=== PATIENT | female | born 1995 | race Caucasian/White ===

== ENCOUNTER 2019-07-24 07:03 | Inpatient (IN) ==
[~2019-07-24 07:03] MED LIST: CITRIC ACID/SODIUM CITRATE 15 ML UDC PO SCH
[2019-07-24] MEDS: LACTATED RINGER'S 1,000 ML IV PRN ×5 (07:20→21:45)
[2019-07-24] MEDS ORDERED: OXYTOCIN 30 UNITS/500 ML BAG IV PRN ×2 (07:30→08:08)
[2019-07-24] MEDS ORDERED: ePHEDrine sulfate 50 MG/ML AMP ONE (07:31)
[2019-07-24] MEDS ORDERED: fentaNYL citrate 100 MCG/2 ML VIAL ONE (07:31)
[2019-07-24] MEDS ORDERED: fentaNYL 2MCG/ML ROPIV 1.25MG/ML 100 ML BAG EPI ONE (07:32)
[2019-07-24] MEDS ORDERED: BUPIVACAINE 0.25% 30 ML VIAL ONE ×2 (07:32→18:17)
--- NOTE | 2019-07-24 07:40 | History & Physical Report ---
Date of Service July 24, 2019 Assessment & Plan (1) Uterine contractions at greater than 20 weeks of gestation: Patient is a 23 yo at 41.2 wks with regular ctxs, desires epidural for pain VSS Afebrile No medical problems except multiple drug allergies FHR reassuring GBS negative Plan to admit, labs, IVF, epidural for pain Anticipate (2) Post-dates : History of Present Illness Chief Complaint: Contractions Primary Care Provider: Cj Alatorre Patient is a 23 yo at 41.2 wks who was originally scheduled for IOL for postdates She started to feel with ctxs yesterday afternoon, got closer and more regular after 4 am No LOF/VB +FM Her has been uncomplicated except Hiatal hernia/ GERD Multiple drug allergies GBS negative Allergies Allergy/AdvReac Type Severity Reaction Status Date / Time amoxicillin Allergy Rash Verified 07/24/19 07:36 clindamycin Allergy Rash Verified 07/24/19 07:36 sulfamethoxazole Allergy Rash Verified 07/24/19 07:36 [From Bactrim] trimethoprim [From Bactrim] Allergy Rash Verified 07/24/19 07:36 Home Medications Home Medications Medication Instructions Recorded Confirmed Type vit-iron fum-folic ac 1 tab PO DAILY 07/24/19 07/24/19 History [ Vitamin] ranitidine HCl [Zantac] 150 mg PO DAILY 07/24/19 07/24/19 History Patient History Social History Smoking Status: Never smoker Hx Alcohol Use: No 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 STD, no h/ HSV/ Chlamydia/ GC Review of Systems All systems reviewed & are unremarkable except as noted in HPI & below Physical Exam Constitutional: WD/WN, vitals as above well developed, well nourished and + acute distress (uncomfortable with ctxs) Gastrointestinal (Abdomen): Inspection/Auscultation: abdomen normal to inspection Abd: soft, NT, Gravid, ctxs q 2-3 min Estu[place] 7 lb Musculoskeletal: no cyanosis or clubbing, extremities motor strength 5/5 Results & Data Vital Signs (Past 12 Hours) Vital Signs Temp Pulse Resp BP 07/24/19 07:12 36.8 C 83 16 139/86 Monitoring External Monitor Categ I Tocodynamometer Contractions q 2-3min
[2019-07-24 07:48] LABS: Hematocrit (blood only) 40.1 % (37-47); Hemoglobin 13.9 g/dL (12.0-16.0); Mean Corpuscular Hemoglobin 31.4 pg (25-34); Mean Corpuscular Volume 90.7 fL (80-100); Mean Platelet Volume 11.4 fL (7.4-10.4); Platelet Count 252 K/uL (130-400); RDW Coefficient of Variation 12.9 % (11.5-14.5); RDW Standard Deviation 42.3 fL (36.4-46.3); Red Blood Count 4.42 M/uL (4.2-5.4); White Blood Count 18.29 K/uL (4.8-10.8)
[2019-07-24 07:51] LABS: Mean Corpuscular Hgb Conc 34.7 g/dL (32-36)
--- NOTE | 2019-07-24 07:56 | Anesthesiology Consultation ---
Date of Service July 24, 2019 Assessment & Plan (1) Encounter for pre-operative examination: Chart Review Chart Review: Patient NOT seen in Pre Admission Testing and Acceptable Risk for Labor Epidural Consults Requested none ASA ASA2 Proposed Anesthesia Anesthesia Type: Labor Epidural Risk / Benefits Reviewed With: PT / POA / Parent / Guardian, Accepts Plan and Informed Consent Obtained History Height/Weight Height: 5 ft 4 in Weight: 74.843 kg Allergies Allergy/AdvReac Type Severity Reaction Status Date / Time amoxicillin Allergy Rash Verified 07/24/19 07:36 clindamycin Allergy Rash Verified 07/24/19 07:36 sulfamethoxazole Allergy Rash Verified 07/24/19 07:36 [From Bactrim] trimethoprim [From Bactrim] Allergy Rash Verified 07/24/19 07:36 Medications Home Medications Medication Instructions Recorded Confirmed Last Taken vit-iron fum-folic ac 1 tab PO DAILY 07/24/19 07/24/19 07/23/19 19:00 [ Vitamin] ranitidine HCl [Zantac] 150 mg PO DAILY 07/24/19 07/24/19 07/23/19 19:00 Active Medications Generic Name Dose Route Start Last Admin Trade Name Freq PRN Reason Stop Dose Admin Lactated Ringer's 1,000 mls @ 150 mls/hr 07/24/19 07:30 07/24/19 08:21 Lr IV 07/26/19 07:29 125 mls/hr .[id number] PRN Administration L&D Protocol Protocol NPO Date Last Intake of Fluids: 07/24/19 Time Last Intake of Fluids: 07:59 Date Last Intake of Solids: 07/23/19 Time Last Intake of Solids: 19:00 Past Medical History Medical History Hiatal hernia Placental abnormality Accessory lobe noted on anatomy scan [place] teeth extracted Exercise / Class Metabolic Activity II 4-5 Yardwork/Stairs/Walk up hill Past Surgical History Surgical History History of shoulder surgery Left shoulder for torn ligaments Past Anesthesia History No Hx of Anesthesia Complications reports being itchy History of PONV No Hx of PONV Social History Smoking Status: Never smoker Hx Alcohol Use: No Hx Substance Use: No Review of Systems Patient denies history of abnormal bleeding or bleeding disorder. Patient denies active use of anticoagulants other than low dose aspirin. Patient denies numbness, tingling or weakness in lower extremities. Positive for nausea Physical Exam Vital Signs Last Vital Signs Temp 36.8 C 07/24/19 07:12 Pulse 83 07/24/19 07:12 Resp 18 07/24/19 07:41 BP 139/86 07/24/19 07:12 Constitutional not obese gravid ENMT Mouth: no TMJ abnormality and oral opening not small Thyromental Distance: > or= 3.5 Finger Breadths Mallampati Class: I Neck normal visual inspection; neck extension not limited Respiratory normal respiratory effort Auscultation: lungs clear to auscultation bilaterally Cardiovascular Rate/Rhythm: regular rate and regular rhythm Heart Sounds: no murmur Neurologic moves all extremities Motor/Sensory: no sensory deficit Psychiatric Orientation: alert and oriented x 3 Testing Laboratory Results 07/24/19 07:39
[2019-07-24] MEDS ORDERED: fentaNYL 2MCG/ML ROPIV 1.25MG/ML 100 ML BAG EPI PRN (08:55)
[2019-07-24] MEDS ORDERED: ONDANSETRON INJ 2 MG/ML 2 ML VIAL IV PRN ×2 (08:55→22:18)
[2019-07-24] MEDS ORDERED: NALOXONE HCL 0.4 MG/1 ML VIAL/CARP IV PRN ×2 (08:55→22:18)
[2019-07-24] MEDS ORDERED: NALOXONE HCL 1 MG in SODIUM CHLORIDE 0.9% 1000ML 1,000 ML IV PRN ×2 (08:55→22:18)
[2019-07-24] MEDS ORDERED: ePHEDrine sulfate 50 MG/ML AMP IV PRN ×2 (08:55→22:18)
[2019-07-24] MEDS ORDERED: NALBUPHINE HCL INJ 10 MG/ML AMP IV PRN ×2 (08:55→22:18)
[2019-07-24] MEDS ORDERED: DiphenhydrAMINE HCL 50 MG/ML VIAL IV PRN ×2 (08:55→22:18)
[2019-07-24 09:08] LABS: BUN Creatinine Ratio 10.1 (10-20); Calcium 9.4 mg/dl (8.5-10.1); Creatinine Clr Calc Pharmacy 118.3 ml/min; Est GFR (African American) 134.9; Est GFR (Non-African American) 116.4; Potassium 3.8 mmol/L (3.5-5.1)
[2019-07-24 09:11] LABS: Albumin Globulin Ratio 0.7 (0.9-2); Bilirubin,Total 0.4 mg/dl (0.2-1); Globulin 4.1 gm/dl (2.5-4.0); Total Protein 7.1 gm/dl (6.4-8.2)
--- NOTE | 2019-07-24 12:26 | Obstetrical Progress Note ---
Date of Service July 24, 2019 Subjective Patient is reevalauated She feels well, no complaints No SMALL/ Change in vision/ N&V Received Epidural and comfortable Vital Signs Height Weight Body Mass Index Blood Pressure Temperature Pulse Rate Respiratory Rate 5 ft 4 in 74.843 kg 28.3 123/75 36.8 C 87 20 07/24/19 07:56 07/24/19 07:56 07/24/19 07:41 07/24/19 12:14 07/24/19 10:52 07/24/19 12:17 07/24/19 10:52 Pulse Oximetry 100 07/24/19 12:17 Lab Results 07/24/19 07/24/19 07/24/19 Range/Units 07:39 08:27 08:27 WBC 18.29 H (4.8-10.8) K/uL RBC 4.42 (4.2-5.4) M/uL Hgb 13.9 (12.0-16.0) g/dL Hct 40.1 (37-47) % MCV 90.7 (80-100) fL MCH 31.4 (25-34) pg MCHC 34.7 (32-36) g/dL RDW Std Deviation 42.3 (36.4-46.3) fL RDW Coeff of Arik 12.9 (11.5-14.5) % Plt Count 252 (130-400) K/uL MPV 11.4 H (7.4-10.4) fL Sodium 136 (136-145) mmol/L Potassium 3.8 (3.5-5.1) mmol/L Chloride 106 (98-107) mmol/L Carbon Dioxide 20 L (21-32) mmol/L Anion Gap 10.0 (3-11) BUN 7 (7-18) mg/dl Creatinine 0.72 (0.6-1.2) mg/dl Est Cr Clr Drug Dosing 118.3 ml/min Est GFR ( Amer) 134.9 Est GFR (Non-Af Amer) 116.4 BUN/Creatinine Ratio 10.1 (10-20) Glucose 97 (70-99) mg/dl Calcium 9.4 (8.5-10.1) mg/dl Total Bilirubin 0.4 (0.2-1) mg/dl AST 54 H (15-37) U/L ALT 106 H (12-78) U/L Alkaline Phosphatase 276 H (45-117) U/L Lactate Dehydrogenase 202 (84-246) U/L Total Protein 7.1 (6.4-8.2) gm/dl Albumin 3.0 L (3.4-5.0) gm/dl Globulin 4.1 H (2.5-4.0) gm/dl Albumin/Globulin Ratio 0.7 L (0.9-2) VE; 4/ 90%/ -2, AROM'ed, clear fluid FHR categ I Toci ctxs q1-4 min Continue to monitor Repeat labs Results & Data Vital Signs (Past 12 Hours) Vital Signs Temp Pulse Resp BP Pulse Ox 07/24/19 12:17 87 100 07/24/19 12:14 80 123/75 07/24/19 12:12 92 H 99 07/24/19 12:07 69 99 07/24/19 12:02 69 99 07/24/19 11:59 68 111/70 07/24/19 11:57 73 99 07/24/19 11:52 72 98 07/24/19 11:47 77 99 07/24/19 11:43 77 114/76 07/24/19 11:42 83 100 07/24/19 11:37 80 99 07/24/19 11:32 75 99 07/24/19 11:29 86 124/71 07/24/19 11:27 107 H 100 07/24/19 11:22 91 H 99 07/24/19 11:17 88 99 07/24/19 11:14 105 H 121/84 07/24/19 11:12 90 100 07/24/19 11:07 93 H 100 07/24/19 11:02 110 H 99 07/24/19 11:00 108 H 113/93 07/24/19 10:57 92 H 99 07/24/19 10:52 36.8 C 85 20 99 07/24/19 10:47 96 H 100 07/24/19 10:45 89 120/71 07/24/19 10:42 99 H 100 07/24/19 10:37 94 H 99 07/24/19 10:32 108 H 99 07/24/19 10:29 93 H 123/78 07/24/19 10:27 113 H 99 07/24/19 10:22 107 H 99 07/24/19 10:17 108 H 99 07/24/19 10:14 115 H 18 113/82 07/24/19 10:12 121 H 99 07/24/19 10:07 107 H 99 07/24/19 10:02 122 H 99 07/24/19 09:59 126 H 122/60 07/24/19 09:57 118 H 99 07/24/19 09:52 101 H 99 07/24/19 09:47 83 97 07/24/19 09:44 71 101/57 L 07/24/19 09:42 65 99 07/24/19 09:37 79 99 07/24/19 09:32 88 99 07/24/19 09:28 100 H 94/64 L 07/24/19 09:27 91 H 99 07/24/19 09:22 102 H 100 07/24/19 09:17 101 H 99 07/24/19 09:12 102 H 106/61 100 07/24/19 09:10 91 H 111/61 07/24/19 09:08 93 H 108/64 07/24/19 09:07 94 H 100 07/24/19 09:06 99 H 117/59 L 07/24/19 09:04 115/71 07/24/19 09:02 103 H 112/75 100 07/24/19 09:00 95 H 18 113/68 07/24/19 08:57 98 H 111/61 99 07/24/19 08:56 94 H 18 112/62 07/24/19 08:54 94 H 111/57 L 07/24/19 08:52 92 H 141/58 H 99 07/24/19 08:49 93 H 115/71 07/24/19 08:48 95 H 18 114/67 07/24/19 08:47 95 H 99 07/24/19 08:45 107 H 111/67 07/24/19 08:43 101 H 18 112/65 07/24/19 08:42 94 H 99 07/24/19 08:41 98 H 18 114/74 07/24/19 08:40 107 H 112/69 07/24/19 08:38 106 H 18 108/67 07/24/19 08:37 104 H 99 07/24/19 08:36 108 H 118/61 07/24/19 08:34 122 H 18 137/58 L 07/24/19 08:32 119 H 99 07/24/19 08:31 127 H 16 133/81 07/24/19 08:30 127 H 133/85 07/24/19 08:28 139 H 16 127/82 07/24/19 08:27 123 H 99 07/24/19 08:25 121 H 125/80 07/24/19 08:23 130 H 16 127/75 07/24/19 08:22 130 H 98 07/24/19 08:21 127 H 16 128/78 07/24/19 08:20 120 H 16 126/81 07/24/19 08:17 116 H 16 160/80 H 98 07/24/19 08:14 117 H 88 L 07/24/19 08:12 111 H 98 07/24/19 08:07 125 H 16 149/100 H 100 07/24/19 08:02 114 H 100 07/24/19 07:41 18 07/24/19 07:12 36.8 C 83 16 139/86
[2019-07-24 13:04] LABS: Basophils # (auto) 0.01 K/uL (0-0.2); Basophils % (auto) 0.1 %; Hematocrit (blood only) 38.5 % (37-47); Hemoglobin 13.3 g/dL (12.0-16.0); Immature Granulocytes # (auto) 0.07 K/uL (0.00-0.02); Immature Granulocytes % (auto) 0.4 %; Lymphocytes # (auto) 1.71 K/uL (1.2-3.4); Lymphocytes % (auto) 9.4 %; Mean Corpuscular Hemoglobin 31.4 pg (25-34); Mean Corpuscular Hgb Conc 34.5 g/dL (32-36); Mean Corpuscular Volume 90.8 fL (80-100); Mean Platelet Volume 11.6 fL (7.4-10.4); Monocytes # (auto) 0.86 K/uL (0.11-0.59); Monocytes % (auto) 4.7 %; Neutrophils # (auto) 15.58 K/uL (1.4-6.5); Neutrophils % (auto) 85.4 %; Platelet Count 229 K/uL (130-400); RDW Coefficient of Variation 12.9 % (11.5-14.5); RDW Standard Deviation 42.6 fL (36.4-46.3); Red Blood Count 4.24 M/uL (4.2-5.4); White Blood Count 18.23 K/uL (4.8-10.8)
[2019-07-24 13:17] LABS: INR 0.9 (0.9-1.1); Partial Thromboplastin Ratio 0.9; Partial Thromboplastin Time 25.3 Seconds (21.0-31.0); Prothrombin Time 9.5 Seconds (9.0-12.0)
[2019-07-24 13:49] LABS: Albumin Level 2.8 gm/dl (3.4-5.0); BUN Creatinine Ratio 10.3 (10-20); Calcium 8.7 mg/dl (8.5-10.1); Creatinine Clr Calc Pharmacy 129.1 ml/min; Est GFR (African American) 142.3; Est GFR (Non-African American) 122.8; Potassium 3.7 mmol/L (3.5-5.1)
[2019-07-24 13:51] LABS: Albumin Globulin Ratio 0.7 (0.9-2); Bilirubin,Total 0.5 mg/dl (0.2-1); Total Protein 6.8 gm/dl (6.4-8.2)
[2019-07-24] MEDS ORDERED: CALCIUM CARBONATE 500 MG CHEWABLE TAB PO PRN (14:18)
[2019-07-24 14:19] LABS: Appearance Urine Clear (Clear); Bilirubin Urine Negative (Negative); Blood Urine Negative (Negative); Color Urine Yellow; Glucose Urine UA Negative (Negative); Ketones Urine 2+ (Negative); Leukocyte Esterase Urine Negative (Negative); Nitrite Urine Negative (Negative); Protein Urine Negative (Negative); Specific Gravity Urine 1.009 (1.000-1.030); Urobilinogen Urine Negative (Negative)
[2019-07-24] MEDS ORDERED: CALCIUM CARBONATE 500 MG CHEWABLE TAB ONE (14:20)
[2019-07-24] MEDS ORDERED: D5W AND NSS 1,000 ML IV SCH (14:30)
--- NOTE | 2019-07-24 14:39 | Obstetrical Progress Note ---
Date of Service July 24, 2019 Subjective Patient is reevaluated No complaints other than GERD and hungry She came with ctxs so could not eat breakfast, gets GERD worse when she is hungry She took Tums now No SMALL/ Change in vision/ Epigastric or RUQ pain BP's have lise stable/ WNL Repeat labs: Lab Results 07/24/19 07/24/19 07/24/19 Range/Units 07:39 08:27 08:27 WBC 18.29 H (4.8-10.8) K/uL RBC 4.42 (4.2-5.4) M/uL Hgb 13.9 (12.0-16.0) g/dL Hct 40.1 (37-47) % MCV 90.7 (80-100) fL MCH 31.4 (25-34) pg MCHC 34.7 (32-36) g/dL RDW Std Deviation 42.3 (36.4-46.3) fL RDW Coeff of Arik 12.9 (11.5-14.5) % Plt Count 252 (130-400) K/uL MPV 11.4 H (7.4-10.4) fL Immature Gran % (Auto) % Neut % (Auto) % Lymph % (Auto) % Dolores % (Auto) % Eos % (Auto) % Baso % (Auto) % Immature Gran # (Auto) (0.00-0.02) K/uL Neut # (Auto) (1.4-6.5) K/uL Lymph # (Auto) (1.2-3.4) K/uL [place]ores # (Auto) (0.11-0.59) K/uL Eos # (Auto) (0-0.5) K/uL Baso # (Auto) (0-0.2) K/uL PT (9.0-12.0) Seconds INR (0.9-1.1) APTT (21.0-31.0) Seconds PTT Ratio Sodium 136 (136-145) mmol/L Potassium 3.8 (3.5-5.1) mmol/L Chloride 106 (98-107) mmol/L Carbon Dioxide 20 L (21-32) mmol/L Anion Gap 10.0 (3-11) BUN 7 (7-18) mg/dl Creatinine 0.72 (0.6-1.2) mg/dl Est Cr Clr Drug Dosing 118.3 ml/min Est GFR ( Amer) 134.9 Est GFR (Non-Af Amer) 116.4 BUN/Creatinine Ratio 10.1 (10-20) Glucose 97 (70-99) mg/dl Calcium 9.4 (8.5-10.1) mg/dl Total Bilirubin 0.4 (0.2-1) mg/dl AST 54 H (15-37) U/L ALT 106 H (12-78) U/L Alkaline Phosphatase 276 H (45-117) U/L Lactate Dehydrogenase 202 (84-246) U/L Total Protein 7.1 (6.4-8.2) gm/dl Albumin 3.0 L (3.4-5.0) gm/dl Globulin 4.1 H (2.5-4.0) gm/dl Albumin/Globulin Ratio 0.7 L (0.9-2) Urine Color Urine Appearance (Clear) Urine pH (4.5-7.5) Ur Specific Hope (1.000-1.030) Urine Protein (Negative) Urine Glucose (UA) (Negative) Urine Ketones (Negative) Urine Blood (Negative) Urine Nitrite (Negative) Urine Bilirubin (Negative) Urine Urobilinogen (Negative) Ur Leukocyte Esterase (Negative) 07/24/19 07/24/19 07/24/19 Range/Units 12:51 12:51 12:51 WBC 18.23 H (4.8-10.8) K/uL RBC 4.24 (4.2-5.4) M/uL Hgb 13.3 (12.0-16.0) g/dL Hct 38.5 (37-47) % MCV 90.8 (80-100) fL MCH 31.4 (25-34) pg MCHC 34.5 (32-36) g/dL RDW Std Deviation 42.6 (36.4-46.3) fL RDW Coeff of Arik 12.9 (11.5-14.5) % Plt Count 229 (130-400) K/uL MPV 11.6 H (7.4-10.4) fL Immature Gran % (Auto) 0.4 % Neut % (Auto) 85.4 % Lymph % (Auto) 9.4 % Dolores % (Auto) 4.7 % Eos % (Auto) 0.0 % Baso % (Auto) 0.1 % Immature Gran # (Auto) 0.07 H (0.00-0.02) K/uL Neut # (Auto) 15.58 H (1.4-6.5) K/uL Lymph # (Auto) 1.71 (1.2-3.4) K/uL Dolores # (Auto) 0.86 H (0.11-0.59) K/uL Eos # (Auto) 0.00 (0-0.5) K/uL Baso # (Auto) 0.01 (0-0.2) K/uL PT 9.5 (9.0-12.0) Seconds INR 0.9 (0.9-1.1) APTT 25.3 (21.0-31.0) Seconds PTT Ratio 0.9 Sodium 137 (136-145) mmol/L Potassium 3.7 (3.5-5.1) mmol/L Chloride 106 (98-107) mmol/L Carbon Dioxide 22 (21-32) mmol/L Anion Gap 9.0 (3-11) BUN 7 (7-18) mg/dl Creatinine 0.66 (0.6-1.2) mg/dl Est Cr Clr Drug Dosing 129.1 ml/min Est GFR ( Amer) 142.3 Est GFR (Non-Af Amer) 122.8 BUN/Creatinine Ratio 10.3 (10-20) Glucose 76 (70-99) mg/dl Calcium 8.7 (8.5-10.1) mg/dl Total Bilirubin 0.5 (0.2-1) mg/dl AST 58 H (15-37) U/L ALT 113 H (12-78) U/L Alkaline Phosphatase 250 H (45-117) U/L Lactate Dehydrogenase (84-246) U/L Total Protein 6.8 (6.4-8.2) gm/dl Albumin 2.8 L (3.4-5.0) gm/dl Globulin 4.0 (2.5-4.0) gm/dl Albumin/Globulin Ratio 0.7 L (0.9-2) Urine Color Urine Appearance (Clear) Urine pH (4.5-7.5) Ur Specific Hope (1.000-1.030) Urine Protein (Negative) Urine Glucose (UA) (Negative) Urine Ketones (Negative) Urine Blood (Negative) Urine Nitrite (Negative) Urine Bilirubin (Negative) Urine Urobilinogen (Negative) Ur Leukocyte Esterase (Negative) 07/24/19 Range/Units 13:44 WBC (4.8-10.8) K/uL RBC (4.2-5.4) M/uL Hgb (12.0-16.0) g/dL Hct (37-47) % MCV (80-100) fL MCH (25-34) pg MCHC (32-36) g/dL RDW Std Deviation (36.4-46.3) fL RDW Coeff of Arik (11.5-14.5) % Plt Count (130-400) K/uL MPV (7.4-10.4) fL Immature Gran % (Auto) % Neut % (Auto) % Lymph % (Auto) % Dolores % (Auto) % Eos % (Auto) % Baso % (Auto) % Immature Gran # (Auto) (0.00-0.02) K/uL Neut # (Auto) (1.4-6.5) K/uL Lymph # (Auto) (1.2-3.4) K/uL Dolores # (Auto) (0.11-0.59) K/uL Eos # (Auto) (0-0.5) K/uL Baso # (Auto) (0-0.2) K/uL PT (9.0-12.0) Seconds INR (0.9-1.1) APTT (21.0-31.0) Seconds PTT Ratio Sodium (136-145) mmol/L Potassium (3.5-5.1) mmol/L Chloride (98-107) mmol/L Carbon Dioxide (21-32) mmol/L Anion Gap (3-11) BUN (7-18) mg/dl Creatinine (0.6-1.2) mg/dl Est Cr Clr Drug Dosing ml/min Est GFR ( Amer) Est GFR (Non-Af Amer) BUN/Creatinine Ratio (10-20) Glucose (70-99) mg/dl Calcium (8.5-10.1) mg/dl Total Bilirubin (0.2-1) mg/dl AST (15-37) U/L ALT (12-78) U/L Alkaline Phosphatase (45-117) U/L Lactate Dehydrogenase (84-246) U/L Total Protein (6.4-8.2) gm/dl Albumin (3.4-5.0) gm/dl Globulin (2.5-4.0) gm/dl Albumin/Globulin Ratio (0.9-2) Urine Color Yellow Urine Appearance Clear (Clear) Urine pH 7.0 (4.5-7.5) Ur Specific Hope 1.009 (1.000-1.030) Urine Protein Negative (Negative) Urine Glucose (UA) Negative (Negative) Urine Ketones 2+ H (Negative) Urine Blood Negative (Negative) Urine Nitrite Negative (Negative) Urine Bilirubin Negative (Negative) Urine Urobilinogen Negative (Negative) Ur Leukocyte Esterase Negative (Negative) Still elevated LFT's, not as high as 2x Normal Coags, Platelets and creatinine No protein in urine Unlikely preeclampsia VE; 4/ 80%/ -1, no significant change despite frequent ctxs per toco Placed an IUPC Add D5NS for IVF Will monitor closely Results & Data Vital Signs (Past 12 Hours) Vital Signs Temp Pulse Resp BP Pulse Ox 07/24/19 14:32 107 H 99 07/24/19 14:29 123 H 126/88 07/24/19 14:27 128 H 99 07/24/19 14:22 143 H 99 07/24/19 14:17 99 H 98 07/24/19 14:14 86 121/78 07/24/19 14:12 100 H 98 07/24/19 14:07 119 H 98 07/24/19 14:02 114 H 99 07/24/19 13:59 108 H 120/89 07/24/19 13:57 124 H 99 07/24/19 13:52 96 H 99 07/24/19 13:47 110 H 98 07/24/19 13:44 106 H 109/68 07/24/19 13:42 86 99 07/24/19 13:37 76 99 07/24/19 13:32 89 99 07/24/19 13:30 88 127/82 07/24/19 13:27 80 99 07/24/19 13:22 84 100 07/24/19 13:17 90 99 07/24/19 13:14 85 122/73 07/24/19 13:12 93 H 99 07/24/19 13:07 77 99 07/24/19 13:02 83 100 07/24/19 12:58 73 123/72 07/24/19 12:57 78 98 07/24/19 12:52 79 99 07/24/19 12:47 94 H 99 07/24/19 12:45 75 130/70 07/24/19 12:42 88 99 07/24/19 12:37 94 H 99 07/24/19 12:32 94 H 99 07/24/19 12:30 87 129/73 07/24/19 12:27 96 H 99 07/24/19 12:22 83 100 07/24/19 12:20 37.0 C 20 07/24/19 12:17 87 100 07/24/19 12:14 80 123/75 07/24/19 12:12 92 H 99 07/24/19 12:07 69 99 07/24/19 12:02 69 99 07/24/19 11:59 68 111/70 07/24/19 11:57 73 99 07/24/19 11:52 72 98 07/24/19 11:47 77 99 07/24/19 11:43 77 114/76 07/24/19 11:42 83 100 07/24/19 11:37 80 99 07/24/19 11:32 75 99 07/24/19 11:29 86 20 124/71 07/24/19 11:27 107 H 100 07/24/19 11:22 91 H 99 07/24/19 11:17 88 99 07/24/19 11:14 105 H 121/84 07/24/19 11:12 90 100 07/24/19 11:07 93 H 100 07/24/19 11:02 110 H 99 07/24/19 11:00 108 H 113/93 07/24/19 10:57 92 H 99 07/24/19 10:52 36.8 C 85 20 99 07/24/19 10:47 96 H 100 07/24/19 10:45 89 120/71 07/24/19 10:42 99 H 100 07/24/19 10:37 94 H 99 07/24/19 10:32 108 H 99 07/24/19 10:29 93 H 20 123/78 07/24/19 10:27 113 H 99 07/24/19 10:22 107 H 99 07/24/19 10:17 108 H 99 07/24/19 10:14 115 H 18 113/82 07/24/19 10:12 121 H 99 07/24/19 10:07 107 H 99 07/24/19 10:02 122 H 99 07/24/19 09:59 126 H 122/60 07/24/19 09:57 118 H 99 07/24/19 09:52 101 H 99 07/24/19 09:47 83 97 07/24/19 09:44 71 101/57 L 07/24/19 09:42 65 99 07/24/19 09:37 79 99 07/24/19 09:32 88 99 07/24/19 09:28 100 H 18 94/64 L 07/24/19 09:27 91 H 99 07/24/19 09:22 102 H 100 07/24/19 09:17 101 H 99 07/24/19 09:12 102 H 106/61 100 07/24/19 09:10 91 H 111/61 07/24/19 09:08 93 H 108/64 07/24/19 09:07 94 H 100 07/24/19 09:06 99 H 117/59 L 07/24/19 09:04 115/71 07/24/19 09:02 103 H 112/75 100 07/24/19 09:00 95 H 18 113/68 07/24/19 08:57 98 H 111/61 99 07/24/19 08:56 94 H 18 112/62 07/24/19 08:54 94 H 111/57 L 07/24/19 08:52 92 H 141/58 H 99 07/24/19 08:49 93 H 115/71 07/24/19 08:48 95 H 18 114/67 07/24/19 08:47 95 H 99 07/24/19 08:45 107 H 111/67 07/24/19 08:43 101 H 18 112/65 07/24/19 08:42 94 H 99 07/24/19 08:41 98 H 18 114/74 07/24/19 08:40 107 H 112/69 07/24/19 08:38 106 H 18 108/67 07/24/19 08:37 104 H 99 07/24/19 08:36 108 H 118/61 07/24/19 08:34 122 H 18 137/58 L 07/24/19 08:32 119 H 99 07/24/19 08:31 127 H 16 133/81 07/24/19 08:30 127 H 133/85 07/24/19 08:28 139 H 16 127/82 07/24/19 08:27 123 H 99 07/24/19 08:25 121 H 125/80 07/24/19 08:23 130 H 16 127/75 07/24/19 08:22 130 H 98 07/24/19 08:21 127 H 16 128/78 07/24/19 08:20 120 H 16 126/81 07/24/19 08:17 116 H 16 160/80 H 98 07/24/19 08:14 117 H 88 L 07/24/19 08:12 111 H 98 07/24/19 08:07 125 H 16 149/100 H 100 07/24/19 08:02 114 H 100 07/24/19 07:41 18 07/24/19 07:12 36.8 C 83 16 139/86
[2019-07-24 14:47] LABS: Creatinine Urine Random 35.5 mg/dl; Total Protein Urine Random < 5.0 mg/dl (0-11.9)
--- NOTE | 2019-07-24 16:45 | Obstetrical Progress Note ---
Date of Service July 24, 2019 Subjective Patient is reevaluated She feels well, no complaints VE; 5-6cm/ 90%/ -1 to 0, anterior fontanelle at 2 o'clock position FHR categ I [place]: ctxs q 2 min, 175 mvu/ 10 min with IUPC, pitocin had been at 2 and now increased to 4 Plan to increase pitocin till 200 mvu/10 min Repeat labs Continue to monitor closely Results & Data Vital Signs (Past 12 Hours) Vital Signs Temp Pulse Resp BP Pulse Ox 07/24/19 16:37 93 H 100 07/24/19 16:32 104 H 100 07/24/19 16:28 102 H 129/76 07/24/19 16:27 97 H 100 07/24/19 16:22 93 H 100 07/24/19 16:17 93 H 99 07/24/19 16:14 78 130/73 07/24/19 16:12 77 99 07/24/19 16:07 78 99 07/24/19 16:02 79 100 07/24/19 16:00 20 07/24/19 15:58 78 128/78 07/24/19 15:57 78 99 07/24/19 15:52 83 99 07/24/19 15:47 104 H 99 07/24/19 15:43 77 115/72 07/24/19 15:42 79 100 07/24/19 15:37 82 98 07/24/19 15:32 79 100 07/24/19 15:28 81 18 116/73 07/24/19 15:27 79 98 07/24/19 15:22 85 99 07/24/19 15:17 89 99 07/24/19 15:14 81 118/74 07/24/19 15:12 108 H 99 07/24/19 15:07 81 99 07/24/19 15:02 84 98 07/24/19 15:00 37.3 C 88 20 119/73 07/24/19 14:57 87 99 07/24/19 14:52 95 H 98 07/24/19 14:47 104 H 99 07/24/19 14:44 102 H 127/64 07/24/19 14:42 100 H 99 07/24/19 14:37 121 H 98 07/24/19 14:32 107 H 99 07/24/19 14:29 123 H 126/88 07/24/19 14:27 128 H 99 07/24/19 14:22 143 H 99 07/24/19 14:17 99 H 98 07/24/19 14:14 86 121/78 07/24/19 14:12 100 H 98 07/24/19 14:07 119 H 98 07/24/19 14:02 114 H 99 07/24/19 13:59 108 H 120/89 07/24/19 13:57 124 H 99 07/24/19 13:52 96 H 99 07/24/19 13:47 110 H 98 07/24/19 13:44 106 H 109/68 07/24/19 13:42 86 99 07/24/19 13:37 76 99 07/24/19 13:32 89 99 07/24/19 13:30 88 127/82 07/24/19 13:27 80 99 07/24/19 13:22 84 100 07/24/19 13:17 90 99 07/24/19 13:14 85 122/73 07/24/19 13:12 93 H 99 07/24/19 13:07 77 99 07/24/19 13:02 83 100 07/24/19 12:58 73 123/72 07/24/19 12:57 78 98 07/24/19 12:52 79 99 07/24/19 12:47 94 H 99 07/24/19 12:45 75 130/70 07/24/19 12:42 88 99 07/24/19 12:37 94 H 99 07/24/19 12:32 94 H 99 07/24/19 12:30 87 129/73 07/24/19 12:27 96 H 99 07/24/19 12:22 83 100 07/24/19 12:20 37.0 C 20 07/24/19 12:17 87 100 07/24/19 12:14 80 123/75 07/24/19 12:12 92 H 99 07/24/19 12:07 69 99 07/24/19 12:02 69 99 07/24/19 11:59 68 111/70 07/24/19 11:57 73 99 07/24/19 11:52 72 98 07/24/19 11:47 77 99 07/24/19 11:43 77 114/76 07/24/19 11:42 83 100 07/24/19 11:37 80 99 07/24/19 11:32 75 99 07/24/19 11:29 86 20 124/71 07/24/19 11:27 107 H 100 07/24/19 11:22 91 H 99 07/24/19 11:17 88 99 07/24/19 11:14 105 H 121/84 07/24/19 11:12 90 100 07/24/19 11:07 93 H 100 07/24/19 11:02 110 H 99 07/24/19 11:00 108 H 113/93 07/24/19 10:57 92 H 99 07/24/19 10:52 36.8 C 85 20 99 07/24/19 10:47 96 H 100 07/24/19 10:45 89 120/71 07/24/19 10:42 99 H 100 07/24/19 10:37 94 H 99 07/24/19 10:32 108 H 99 07/24/19 10:29 93 H 20 123/78 07/24/19 10:27 113 H 99 07/24/19 10:22 107 H 99 07/24/19 10:17 108 H 99 07/24/19 10:14 115 H 18 113/82 07/24/19 10:12 121 H 99 07/24/19 10:07 107 H 99 07/24/19 10:02 122 H 99 07/24/19 09:59 126 H 122/60 07/24/19 09:57 118 H 99 07/24/19 09:52 101 H 99 07/24/19 09:47 83 97 07/24/19 09:44 71 101/57 L 07/24/19 09:42 65 99 07/24/19 09:37 79 99 07/24/19 09:32 88 99 07/24/19 09:28 100 H 18 94/64 L 07/24/19 09:27 91 H 99 07/24/19 09:22 102 H 100 07/24/19 09:17 101 H 99 07/24/19 09:12 102 H 106/61 100 07/24/19 09:10 91 H 111/61 07/24/19 09:08 93 H 108/64 07/24/19 09:07 94 H 100 07/24/19 09:06 99 H 117/59 L 07/24/19 09:04 115/71 07/24/19 09:02 103 H 112/75 100 07/24/19 09:00 95 H 18 113/68 07/24/19 08:57 98 H 111/61 99 07/24/19 08:56 94 H 18 112/62 07/24/19 08:54 94 H 111/57 L 07/24/19 08:52 92 H 141/58 H 99 07/24/19 08:49 93 H 115/71 07/24/19 08:48 95 H 18 114/67 07/24/19 08:47 95 H 99 07/24/19 08:45 107 H 111/67 07/24/19 08:43 101 H 18 112/65 07/24/19 08:42 94 H 99 07/24/19 08:41 98 H 18 114/74 07/24/19 08:40 107 H 112/69 07/24/19 08:38 106 H 18 108/67 07/24/19 08:37 104 H 99 07/24/19 08:36 108 H 118/61 07/24/19 08:34 122 H 18 137/58 L 07/24/19 08:32 119 H 99 07/24/19 08:31 127 H 16 133/81 07/24/19 08:30 127 H 133/85 07/24/19 08:28 139 H 16 127/82 07/24/19 08:27 123 H 99 07/24/19 08:25 121 H 125/80 07/24/19 08:23 130 H 16 127/75 07/24/19 08:22 130 H 98 07/24/19 08:21 127 H 16 128/78 07/24/19 08:20 120 H 16 126/81 07/24/19 08:17 116 H 16 160/80 H 98 07/24/19 08:14 117 H 88 L 07/24/19 08:12 111 H 98 07/24/19 08:07 125 H 16 149/100 H 100 07/24/19 08:02 114 H 100 07/24/19 07:41 18 07/24/19 07:12 36.8 C 83 16 139/86
--- NOTE | 2019-07-24 18:07 | Obstetrical Progress Note ---
Date of Service July 24, 2019 Subjective Patient is reevaluated She feels pain with ctxs FHR had tachycardia for about 15 minutes with variable decels Recovered well, normal baseline now with good variability Temp: 37.6 VE; 6-7 cm/ 90%/ 0, anterior fontanelle at 2 o'clock, ROP, IUPC came out ctxs q 2 min, 220 mvu/ 10 min with pitocin at 4 miu/min Discussed the findings FHR reassuring now with some change in VE, though slower than expected WBCC 18 Has been afebrile Discussed considering AB therapy if any signs of intraamniotic infection would develop Continue to monitor closely Results & Data Vital Signs (Past 12 Hours) Vital Signs Temp Pulse Resp BP Pulse Ox 07/24/19 18:02 91 H 100 07/24/19 17:59 97 H 112/71 07/24/19 17:57 106 H 100 07/24/19 17:52 99 H 100 07/24/19 17:47 82 100 07/24/19 17:44 104 H 132/69 07/24/19 17:42 89 99 07/24/19 17:37 85 100 07/24/19 17:32 87 100 07/24/19 17:29 105 H 115/71 07/24/19 17:28 37.6 C H 20 07/24/19 17:27 90 100 07/24/19 17:22 97 H 99 07/24/19 17:17 85 100 07/24/19 17:13 83 128/80 07/24/19 17:12 81 100 07/24/19 17:07 82 99 07/24/19 17:02 84 100 07/24/19 16:59 82 123/81 07/24/19 16:57 82 99 07/24/19 16:52 93 H 99 07/24/19 16:50 37.1 C 18 07/24/19 16:47 94 H 99 07/24/19 16:43 99 H 129/80 07/24/19 16:42 109 H 100 07/24/19 16:37 93 H 100 07/24/19 16:32 104 H 100 07/24/19 16:28 102 H 129/76 07/24/19 16:27 97 H 100 07/24/19 16:22 93 H 100 07/24/19 16:17 93 H 99 07/24/19 16:14 78 130/73 07/24/19 16:12 77 99 07/24/19 16:07 78 99 07/24/19 16:02 79 100 07/24/19 16:00 20 07/24/19 15:58 78 128/78 07/24/19 15:57 78 99 07/24/19 15:52 83 99 07/24/19 15:47 104 H 99 07/24/19 15:43 77 115/72 07/24/19 15:42 79 100 07/24/19 15:37 82 98 07/24/19 15:32 79 100 07/24/19 15:28 81 18 116/73 07/24/19 15:27 79 98 07/24/19 15:22 85 99 07/24/19 15:17 89 99 07/24/19 15:14 81 118/74 07/24/19 15:12 108 H 99 07/24/19 15:07 81 99 07/24/19 15:02 84 98 07/24/19 15:00 37.3 C 88 20 119/73 07/24/19 14:57 87 99 07/24/19 14:52 95 H 98 07/24/19 14:47 104 H 99 07/24/19 14:44 102 H 127/64 07/24/19 14:42 100 H 99 07/24/19 14:37 121 H 98 07/24/19 14:32 107 H 99 07/24/19 14:29 123 H 126/88 07/24/19 14:27 128 H 99 07/24/19 14:22 143 H 99 07/24/19 14:17 99 H 98 07/24/19 14:14 86 121/78 07/24/19 14:12 100 H 98 07/24/19 14:07 119 H 98 07/24/19 14:02 114 H 99 07/24/19 13:59 108 H 120/89 07/24/19 13:57 124 H 99 07/24/19 13:52 96 H 99 07/24/19 13:47 110 H 98 07/24/19 13:44 106 H 109/68 07/24/19 13:42 86 99 07/24/19 13:37 76 99 07/24/19 13:32 89 99 07/24/19 13:30 88 127/82 07/24/19 13:27 80 99 07/24/19 13:22 84 100 07/24/19 13:17 90 99 07/24/19 13:14 85 122/73 07/24/19 13:12 93 H 99 07/24/19 13:07 77 99 07/24/19 13:02 83 100 07/24/19 12:58 73 123/72 07/24/19 12:57 78 98 07/24/19 12:52 79 99 07/24/19 12:47 94 H 99 07/24/19 12:45 75 130/70 07/24/19 12:42 88 99 07/24/19 12:37 94 H 99 07/24/19 12:32 94 H 99 07/24/19 12:30 87 129/73 07/24/19 12:27 96 H 99 07/24/19 12:22 83 100 07/24/19 12:20 37.0 C 20 07/24/19 12:17 87 100 07/24/19 12:14 80 123/75 07/24/19 12:12 92 H 99 07/24/19 12:07 69 99 07/24/19 12:02 69 99 07/24/19 11:59 68 111/70 07/24/19 11:57 73 99 07/24/19 11:52 72 98 07/24/19 11:47 77 99 07/24/19 11:43 77 114/76 07/24/19 11:42 83 100 07/24/19 11:37 80 99 07/24/19 11:32 75 99 07/24/19 11:29 86 20 124/71 07/24/19 11:27 107 H 100 07/24/19 11:22 91 H 99 07/24/19 11:17 88 99 07/24/19 11:14 105 H 121/84 07/24/19 11:12 90 100 07/24/19 11:07 93 H 100 07/24/19 11:02 110 H 99 07/24/19 11:00 108 H 113/93 07/24/19 10:57 92 H 99 07/24/19 10:52 36.8 C 85 20 99 07/24/19 10:47 96 H 100 07/24/19 10:45 89 120/71 07/24/19 10:42 99 H 100 07/24/19 10:37 94 H 99 07/24/19 10:32 108 H 99 07/24/19 10:29 93 H 20 123/78 07/24/19 10:27 113 H 99 07/24/19 10:22 107 H 99 07/24/19 10:17 108 H 99 07/24/19 10:14 115 H 18 113/82 07/24/19 10:12 121 H 99 07/24/19 10:07 107 H 99 07/24/19 10:02 122 H 99 07/24/19 09:59 126 H 122/60 07/24/19 09:57 118 H 99 07/24/19 09:52 101 H 99 07/24/19 09:47 83 97 07/24/19 09:44 71 101/57 L 07/24/19 09:42 65 99 07/24/19 09:37 79 99 07/24/19 09:32 88 99 07/24/19 09:28 100 H 18 94/64 L 07/24/19 09:27 91 H 99 07/24/19 09:22 102 H 100 07/24/19 09:17 101 H 99 07/24/19 09:12 102 H 106/61 100 07/24/19 09:10 91 H 111/61 07/24/19 09:08 93 H 108/64 07/24/19 09:07 94 H 100 07/24/19 09:06 99 H 117/59 L 07/24/19 09:04 115/71 07/24/19 09:02 103 H 112/75 100 07/24/19 09:00 95 H 18 113/68 07/24/19 08:57 98 H 111/61 99 07/24/19 08:56 94 H 18 112/62 07/24/19 08:54 94 H 111/57 L 07/24/19 08:52 92 H 141/58 H 99 07/24/19 08:49 93 H 115/71 07/24/19 08:48 95 H 18 114/67 07/24/19 08:47 95 H 99 07/24/19 08:45 107 H 111/67 07/24/19 08:43 101 H 18 112/65 07/24/19 08:42 94 H 99 07/24/19 08:41 98 H 18 114/74 07/24/19 08:40 107 H 112/69 07/24/19 08:38 106 H 18 108/67 07/24/19 08:37 104 H 99 07/24/19 08:36 108 H 118/61 07/24/19 08:34 122 H 18 137/58 L 07/24/19 08:32 119 H 99 07/24/19 08:31 127 H 16 133/81 07/24/19 08:30 127 H 133/85 07/24/19 08:28 139 H 16 127/82 07/24/19 08:27 123 H 99 07/24/19 08:25 121 H 125/80 07/24/19 08:23 130 H 16 127/75 07/24/19 08:22 130 H 98 07/24/19 08:21 127 H 16 128/78 07/24/19 08:20 120 H 16 126/81 07/24/19 08:17 116 H 16 160/80 H 98 07/24/19 08:14 117 H 88 L 07/24/19 08:12 111 H 98 07/24/19 08:07 125 H 16 149/100 H 100 07/24/19 08:02 114 H 100 07/24/19 07:41 18 07/24/19 07:12 36.8 C 83 16 139/86
[2019-07-24 19:11] LABS: Basophils # (auto) 0.01 K/uL (0-0.2); Basophils % (auto) 0.1 %; Hematocrit (blood only) 36.9 % (37-47); Hemoglobin 12.6 g/dL (12.0-16.0); Immature Granulocytes # (auto) 0.07 K/uL (0.00-0.02); Immature Granulocytes % (auto) 0.4 %; Lymphocytes # (auto) 1.35 K/uL (1.2-3.4); Lymphocytes % (auto) 7.6 %; Mean Corpuscular Hemoglobin 31.1 pg (25-34); Mean Corpuscular Hgb Conc 34.1 g/dL (32-36); Mean Corpuscular Volume 91.1 fL (80-100); Mean Platelet Volume 11.3 fL (7.4-10.4); Monocytes # (auto) 1.23 K/uL (0.11-0.59); Neutrophils # (auto) 15.02 K/uL (1.4-6.5); Neutrophils % (auto) 84.9 %; Platelet Count 205 K/uL (130-400); RDW Coefficient of Variation 12.8 % (11.5-14.5); RDW Standard Deviation 42.6 fL (36.4-46.3); Red Blood Count 4.05 M/uL (4.2-5.4); White Blood Count 17.68 K/uL (4.8-10.8)
[2019-07-24] MEDS ORDERED: LACTATED RINGER'S 1,000 ML IV SCH ×3 (19:15→23:45)
--- NOTE | 2019-07-24 19:27 | Obstetrical Progress Note ---
Date of Service July 24, 2019 Subjective Patient is reevaluated VE: Unchanged, 6-7 cm/ 90%/ 0, ROP FHR had been between categ I to II, with baseline of 155-160's, deep variable decels with spontaneous recovery, minimal to moderate variability Lyerly: ctxs q 1-2 min, despite pitocin was stopped Discussed with her, protracted labor, arrest of descent in active phase categ II Strip on and off and suspected Intraamniotic infection Recommended delivery via She agrees Understands It is a major surgery with possible risk fo bleeding, infection, injury to surrounding organs like bowels, bladder, ureters, DVT, PE, Scarring, adhesion and future risks of repeat Csection and succes rate of She signed informed consent All questions were answered I called ID, Dr. Bull about her h/o allergies to multiple aAB's, she recommended Vancomycin for preop AB Vancomycin will need to be given as slow IV infusion in 2 hours ( per pharmacy) There is another section going on in L&D now FHR 150's reassuring now Will infuse Vancomycin and then go for Csection Results & Data Vital Signs (Past 12 Hours) Vital Signs Temp Pulse Resp BP Pulse Ox 07/24/19 19:17 102 H 130/77 100 07/24/19 19:13 101 H 131/79 07/24/19 19:12 104 H 100 07/24/19 19:07 87 129/74 100 07/24/19 19:02 86 121/71 100 07/24/19 18:57 86 100 07/24/19 18:52 82 121/68 100 07/24/19 18:48 86 117/69 07/24/19 18:47 81 100 07/24/19 18:44 92 H 123/87 07/24/19 18:42 82 100 07/24/19 18:38 86 122/78 07/24/19 18:37 82 100 07/24/19 18:35 37.2 C 20 07/24/19 18:33 90 126/71 07/24/19 18:32 89 100 07/24/19 18:27 79 120/66 100 07/24/19 18:25 84 111/76 07/24/19 18:22 80 100 07/24/19 18:17 93 H 100 07/24/19 18:15 93 H 18 107/69 07/24/19 18:12 85 100 07/24/19 18:07 99 H 100 07/24/19 18:02 91 H 100 07/24/19 17:59 97 H 20 112/71 07/24/19 17:57 106 H 100 07/24/19 17:52 99 H 100 07/24/19 17:47 82 100 07/24/19 17:44 104 H 132/69 07/24/19 17:42 89 99 07/24/19 17:37 85 100 07/24/19 17:32 87 100 07/24/19 17:29 105 H 115/71 07/24/19 17:28 37.6 C H 20 07/24/19 17:27 90 100 07/24/19 17:22 97 H 99 07/24/19 17:17 85 100 07/24/19 17:13 83 128/80 07/24/19 17:12 81 100 07/24/19 17:07 82 99 07/24/19 17:02 84 100 07/24/19 16:59 82 123/81 07/24/19 16:57 82 99 07/24/19 16:52 93 H 99 07/24/19 16:50 37.1 C 18 07/24/19 16:47 94 H 99 07/24/19 16:43 99 H 20 129/80 07/24/19 16:42 109 H 100 07/24/19 16:37 93 H 100 07/24/19 16:32 104 H 100 07/24/19 16:28 102 H 129/76 07/24/19 16:27 97 H 100 07/24/19 16:22 93 H 100 07/24/19 16:17 93 H 99 07/24/19 16:14 78 130/73 07/24/19 16:12 77 99 07/24/19 16:07 78 99 07/24/19 16:02 79 100 07/24/19 16:00 20 07/24/19 15:58 78 128/78 07/24/19 15:57 78 99 07/24/19 15:52 83 99 07/24/19 15:47 104 H 99 07/24/19 15:43 77 115/72 07/24/19 15:42 79 100 07/24/19 15:37 82 98 07/24/19 15:32 79 100 07/24/19 15:28 81 18 116/73 07/24/19 15:27 79 98 07/24/19 15:22 85 99 07/24/19 15:17 89 99 07/24/19 15:14 81 118/74 07/24/19 15:12 108 H 99 07/24/19 15:07 81 99 07/24/19 15:02 84 98 07/24/19 15:00 37.3 C 88 20 119/73 07/24/19 14:57 87 99 07/24/19 14:52 95 H 98 07/24/19 14:47 104 H 99 07/24/19 14:44 102 H 127/64 07/24/19 14:42 100 H 99 07/24/19 14:37 121 H 98 07/24/19 14:32 107 H 99 07/24/19 14:29 123 H 126/88 07/24/19 14:27 128 H 99 07/24/19 14:22 143 H 99 07/24/19 14:17 99 H 98 07/24/19 14:14 86 121/78 07/24/19 14:12 100 H 98 07/24/19 14:07 119 H 98 07/24/19 14:02 114 H 99 07/24/19 13:59 108 H 120/89 07/24/19 13:57 124 H 99 07/24/19 13:52 96 H 99 07/24/19 13:47 110 H 98 07/24/19 13:44 106 H 109/68 07/24/19 13:42 86 99 07/24/19 13:37 76 99 07/24/19 13:32 89 99 07/24/19 13:30 88 127/82 07/24/19 13:27 80 99 07/24/19 13:22 84 100 07/24/19 13:17 90 99 07/24/19 13:14 85 122/73 07/24/19 13:12 93 H 99 07/24/19 13:07 77 99 07/24/19 13:02 83 100 07/24/19 12:58 73 123/72 07/24/19 12:57 78 98 07/24/19 12:52 79 99 07/24/19 12:47 94 H 99 07/24/19 12:45 75 130/70 07/24/19 12:42 88 99 07/24/19 12:37 94 H 99 07/24/19 12:32 94 H 99 07/24/19 12:30 87 129/73 07/24/19 12:27 96 H 99 07/24/19 12:22 83 100 07/24/19 12:20 37.0 C 20 07/24/19 12:17 87 100 07/24/19 12:14 80 123/75 07/24/19 12:12 92 H 99 07/24/19 12:07 69 99 07/24/19 12:02 69 99 07/24/19 11:59 68 111/70 07/24/19 11:57 73 99 07/24/19 11:52 72 98 07/24/19 11:47 77 99 07/24/19 11:43 77 114/76 07/24/19 11:42 83 100 07/24/19 11:37 80 99 07/24/19 11:32 75 99 07/24/19 11:29 86 20 124/71 07/24/19 11:27 107 H 100 07/24/19 11:22 91 H 99 07/24/19 11:17 88 99 07/24/19 11:14 105 H 121/84 07/24/19 11:12 90 100 07/24/19 11:07 93 H 100 07/24/19 11:02 110 H 99 07/24/19 11:00 108 H 113/93 07/24/19 10:57 92 H 99 07/24/19 10:52 36.8 C 85 20 99 07/24/19 10:47 96 H 100 07/24/19 10:45 89 120/71 07/24/19 10:42 99 H 100 07/24/19 10:37 94 H 99 07/24/19 10:32 108 H 99 07/24/19 10:29 93 H 20 123/78 07/24/19 10:27 113 H 99 07/24/19 10:22 107 H 99 07/24/19 10:17 108 H 99 07/24/19 10:14 115 H 18 113/82 07/24/19 10:12 121 H 99 07/24/19 10:07 107 H 99 07/24/19 10:02 122 H 99 07/24/19 09:59 126 H 122/60 07/24/19 09:57 118 H 99 07/24/19 09:52 101 H 99 07/24/19 09:47 83 97 07/24/19 09:44 71 101/57 L 07/24/19 09:42 65 99 07/24/19 09:37 79 99 07/24/19 09:32 88 99 07/24/19 09:28 100 H 18 94/64 L 07/24/19 09:27 91 H 99 07/24/19 09:22 102 H 100 07/24/19 09:17 101 H 99 07/24/19 09:12 102 H 106/61 100 07/24/19 09:10 91 H 111/61 07/24/19 09:08 93 H 108/64 07/24/19 09:07 94 H 100 07/24/19 09:06 99 H 117/59 L 07/24/19 09:04 115/71 07/24/19 09:02 103 H 112/75 100 07/24/19 09:00 95 H 18 113/68 07/24/19 08:57 98 H 111/61 99 07/24/19 08:56 94 H 18 112/62 07/24/19 08:54 94 H 111/57 L 07/24/19 08:52 92 H 141/58 H 99 07/24/19 08:49 93 H 115/71 07/24/19 08:48 95 H 18 114/67 07/24/19 08:47 95 H 99 07/24/19 08:45 107 H 111/67 07/24/19 08:43 101 H 18 112/65 07/24/19 08:42 94 H 99 07/24/19 08:41 98 H 18 114/74 07/24/19 08:40 107 H 112/69 07/24/19 08:38 106 H 18 108/67 07/24/19 08:37 104 H 99 07/24/19 08:36 108 H 118/61 07/24/19 08:34 122 H 18 137/58 L 07/24/19 08:32 119 H 99 07/24/19 08:31 127 H 16 133/81 07/24/19 08:30 127 H 133/85 07/24/19 08:28 139 H 16 127/82 07/24/19 08:27 123 H 99 07/24/19 08:25 121 H 125/80 07/24/19 08:23 130 H 16 127/75 07/24/19 08:22 130 H 98 07/24/19 08:21 127 H 16 128/78 07/24/19 08:20 120 H 16 126/81 07/24/19 08:17 116 H 16 160/80 H 98 07/24/19 08:14 117 H 88 L 07/24/19 08:12 111 H 98 07/24/19 08:07 125 H 16 149/100 H 100 07/24/19 08:02 114 H 100 07/24/19 07:41 18
[2019-07-24] MEDS ORDERED: VANCOMYCIN HCL 1,000 MG in SODIUM CHLORIDE 0.9% 250 ML IV ONE (19:30)
[2019-07-24 19:33] LABS: Albumin Level 2.4 gm/dl (3.4-5.0); BUN Creatinine Ratio 8.4 (10-20); Calcium 9.1 mg/dl (8.5-10.1); Creatinine Clr Calc Pharmacy 105.2 ml/min; Est GFR (Non-African American) 100.9; Potassium 3.5 mmol/L (3.5-5.1)
[2019-07-24 19:35] LABS: Albumin Globulin Ratio 0.7 (0.9-2); Bilirubin,Total 0.6 mg/dl (0.2-1); Globulin 3.7 gm/dl (2.5-4.0); Total Protein 6.1 gm/dl (6.4-8.2)
[2019-07-24] MEDS ORDERED: VANCOMYCIN HCL 1,250 MG in SODIUM CHLORIDE 0.9% 250 ML IV ONE (19:45)
[2019-07-24] MEDS ORDERED: TERBUTALINE SULFATE 1 MG/ML VIAL SQ ONE (19:52)
[2019-07-24] MEDS ORDERED: AZITHROMYCIN 500 MG in DEXTROSE 5% 250 ML IV SCH (20:45)
[2019-07-24] MEDS ORDERED: LACTATED RINGER'S 500 ML IV PRN (22:18)
[2019-07-24] MEDS ORDERED: NALOXONE HCL 0.08 MG in SYRINGE 1.8 ML IV PRN (22:18)
[2019-07-24] MEDS ORDERED: ACETAMINOPHEN 1000 MG/100 ML IV IV PRN (22:18)
[2019-07-24] MEDS ORDERED: MoRPHine SULFATE PF 1 MG/ML 10 ML AMP/VIAL EPI ONE (22:18)
[2019-07-24] MEDS ORDERED: LIDOCAINE/EPINEPHRINE 2% 1:200,000 20 ML SDV ONE (22:22)
[2019-07-24] MEDS ORDERED: SODIUM CHLORIDE 0.9% 1000ML 1,000 ML IV SCH (22:30)
[2019-07-24] MEDS ORDERED: NO NARCOTICS OR SEDATIVES SCH (22:30)
[2019-07-24] MEDS ORDERED: DC INTRASPINAL MORPHINE SCH (22:30)
[2019-07-24] MEDS ORDERED: MoRPHine SULFATE PF 1 MG/ML 10 ML AMP/VIAL ONE (22:55)
[2019-07-24] MEDS ORDERED: METHYLERGONOVINE MALEATE 0.2 MG/ML AMP ONE (23:00)
[2019-07-24] MEDS ORDERED: OXYTOCIN 10 UNITS/ML VIAL ONE (23:01)
[2019-07-24] MEDS ORDERED: ONDANSETRON INJ 2 MG/ML 2 ML VIAL ONE (23:13)
[2019-07-24] MEDS ORDERED: PHENYLEPHRINE 100MCG/ML 5ML SYR ONE (23:15)
[2019-07-24] MEDS ORDERED: MAGNESIUM HYDROXIDE SUSP 30 ML UDC PO PRN (23:39)
[2019-07-24] MEDS ORDERED: SENNA 8.6 MG TAB PO PRN (23:39)
[2019-07-24] MEDS ORDERED: HYDROCORTISONE ACETATE 25 MG SUPP PR PRN (23:39)
[2019-07-24] MEDS ORDERED: SUPERCREAM 0.870% 15 GM JAR EXT PRN (23:39)
[2019-07-24] MEDS ORDERED: BENZOCAINE 20% AER SPR 82.5 GM CAN EXT PRN (23:39)
[2019-07-24] MEDS ORDERED: DIPHTHERIA/TETANUS/PERTUSSIS 0.5 ML SYR/VIAL IM ONE (23:39)
--- NOTE | 2019-07-24 23:39 | Post Operative Brief Note ---
Immediate Post Op Note v1 Date of Surgery July 24, 2019 Pre & Post Diagnosis Operation Date: 07/24/19 19:00 Pre-Op Diagnosis: Arrest of dilatation Post-Op Diagnosis: Arrest of dilatation I identified the patient and participated in the time-out.: Yes Procedure Operation Date: 07/24/19 19:00 Actual Procedures p primary lower uterine transverse section. Live female child @ [id number]. - Wade Elliott MD Surgeon Wade Elliott MD Glaze Supervisor Amelia Nice RN Estimated Blood Loss 700 Findings Consistent with Post-Op Diagnosis Fluids 550 ml Drains Eid Catheter ( ) Anesthesia Type MAC Epidural Complications none Disposition Accompanied Patient To Recovery: Yes Disposition: L&D Overlapping Procedure I was present for: the critical portions of procedure. (I WAS PRESENT FOR THE ENTIRE PROCEDURE)
--- NOTE | 2019-07-25 00:01 | Anesthesia Procedure Note ---
Date of Service July 25, 2019 Anesthesia Post Epidural Note Vital Signs Vital Signs: Temp Pulse Resp BP Pulse Ox 37.5 C 94 H 18 108/70 97 07/24/19 19:30 07/24/19 23:59 07/24/19 19:30 07/24/19 23:59 07/24/19 23:59 Notes Mental Status: alert / awake / arousable and participated in evaluation Nausea / Vomiting: adequately controlled Pain: adequately controlled Airway Patency, RR, SpO2: stable & adequate BP & HR: stable & adequate Hydration State: stable & adequate Neuraxial Anesthesia: was administered and sensory block is resolving Anesthetic Complications: no major complications apparent and Pt Satisfied with anesthetic care Epidural: Removed without complications and With tip intact
[2019-07-25] MEDS ORDERED: OXYTOCIN 10 UNITS/ML VIAL IM ONE (00:14)
--- NOTE | 2019-07-25 00:58 | Anesthesiology Progress Note ---
Date of Service July 25, 2019 Anesthesia Post Procedure Vital Signs Vital Signs: Temp Pulse Resp BP Pulse Ox 07/25/19 00:54 94 H 98 07/25/19 00:49 84 115/81 97 07/25/19 00:44 90 96 07/25/19 00:39 90 121/82 97 07/25/19 00:34 87 97 07/25/19 00:29 93 H 111/72 96 07/25/19 00:24 90 95 07/25/19 00:19 88 111/69 97 07/25/19 00:18 18 07/25/19 00:14 100 H 96 07/25/19 00:13 95 H 94 07/25/19 00:09 89 112/76 97 07/25/19 00:08 18 07/25/19 00:04 92 H 96 07/24/19 23:59 94 H 108/70 97 07/24/19 23:54 95 H 98 07/24/19 23:49 89 86 L 07/24/19 23:48 37.6 C H 90 18 113/72 07/24/19 22:27 146 H 114/70 99 07/24/19 22:22 134 H 99 07/24/19 22:17 116 H 99 07/24/19 22:13 118 H 122/79 07/24/19 22:12 124 H 99 07/24/19 22:07 129 H 99 07/24/19 22:02 114 H 99 07/24/19 21:57 120 H 126/72 100 07/24/19 21:52 97 H 99 07/24/19 21:47 94 H 98 07/24/19 21:44 102 H 117/72 07/24/19 21:42 95 H 99 07/24/19 21:37 86 99 07/24/19 21:32 97 H 99 07/24/19 21:28 90 115/70 07/24/19 21:27 91 H 99 07/24/19 21:22 94 H 98 07/24/19 21:17 97 H 99 07/24/19 21:13 93 H 118/70 07/24/19 21:12 102 H 99 07/24/19 21:07 103 H 98 07/24/19 21:02 113 H 99 07/24/19 20:57 106 H 116/73 100 07/24/19 20:52 109 H 98 07/24/19 20:47 127 H 99 07/24/19 20:42 113 H 125/75 100 07/24/19 20:37 116 H 125/72 100 07/24/19 20:32 119 H 129/70 100 07/24/19 20:27 114 H 100 07/24/19 20:26 113 H 122/72 07/24/19 20:22 111 H 99 07/24/19 20:21 120 H 119/72 07/24/19 20:17 110 H 118/72 100 07/24/19 20:13 105 H 117/67 07/24/19 20:12 108 H 100 07/24/19 20:08 96 H 117/67 07/24/19 20:07 109 H 99 07/24/19 20:03 82 123/68 07/24/19 20:02 84 100 07/24/19 19:58 86 118/70 07/24/19 19:57 87 99 07/24/19 19:52 85 122/71 100 07/24/19 19:49 86 119/70 07/24/19 19:47 87 99 07/24/19 19:42 96 H 119/74 99 07/24/19 19:38 88 119/71 07/24/19 19:37 83 100 07/24/19 19:33 86 114/67 07/24/19 19:32 83 100 07/24/19 19:30 37.5 C 18 07/24/19 19:27 84 117/72 100 07/24/19 19:23 89 120/73 07/24/19 19:22 86 100 07/24/19 19:17 102 H 130/77 100 07/24/19 19:13 101 H 131/79 07/24/19 19:12 104 H 100 07/24/19 19:07 87 129/74 100 07/24/19 19:02 86 121/71 100 07/24/19 18:57 86 100 07/24/19 18:52 82 121/68 100 07/24/19 18:48 86 117/69 07/24/19 18:47 81 100 07/24/19 18:44 92 H 123/87 07/24/19 18:42 82 100 07/24/19 18:38 86 122/78 07/24/19 18:37 82 100 07/24/19 18:35 37.2 C 20 07/24/19 18:33 90 126/71 07/24/19 18:32 89 100 07/24/19 18:27 79 120/66 100 07/24/19 18:25 84 111/76 07/24/19 18:22 80 100 07/24/19 18:17 93 H 100 07/24/19 18:15 93 H 18 107/69 07/24/19 18:12 85 100 07/24/19 18:07 99 H 100 07/24/19 18:02 91 H 100 07/24/19 17:59 97 H 20 112/71 07/24/19 17:57 106 H 100 07/24/19 17:52 99 H 100 07/24/19 17:47 82 100 07/24/19 17:44 104 H 132/69 07/24/19 17:42 89 99 07/24/19 17:37 85 100 07/24/19 17:32 87 100 07/24/19 17:29 105 H 115/71 07/24/19 17:28 37.6 C H 20 07/24/19 17:27 90 100 07/24/19 17:22 97 H 99 07/24/19 17:17 85 100 07/24/19 17:13 83 128/80 07/24/19 17:12 81 100 07/24/19 17:07 82 99 07/24/19 17:02 84 100 07/24/19 16:59 82 123/81 07/24/19 16:57 82 99 07/24/19 16:52 93 H 99 07/24/19 16:50 37.1 C 18 07/24/19 16:47 94 H 99 07/24/19 16:43 99 H 20 129/80 07/24/19 16:42 109 H 100 07/24/19 16:37 93 H 100 07/24/19 16:32 104 H 100 07/24/19 16:28 102 H 129/76 07/24/19 16:27 97 H 100 07/24/19 16:22 93 H 100 07/24/19 16:17 93 H 99 07/24/19 16:14 78 130/73 07/24/19 16:12 77 99 07/24/19 16:07 78 99 07/24/19 16:02 79 100 07/24/19 16:00 20 07/24/19 15:58 78 128/78 07/24/19 15:57 78 99 07/24/19 15:52 83 99 07/24/19 15:47 104 H 99 07/24/19 15:43 77 115/72 07/24/19 15:42 79 100 07/24/19 15:37 82 98 07/24/19 15:32 79 100 07/24/19 15:28 81 18 116/73 07/24/19 15:27 79 98 07/24/19 15:22 85 99 07/24/19 15:17 89 99 07/24/19 15:14 81 118/74 07/24/19 15:12 108 H 99 07/24/19 15:07 81 99 07/24/19 15:02 84 98 07/24/19 15:00 37.3 C 88 20 119/73 07/24/19 14:57 87 99 07/24/19 14:52 95 H 98 07/24/19 14:47 104 H 99 07/24/19 14:44 102 H 127/64 07/24/19 14:42 100 H 99 07/24/19 14:37 121 H 98 07/24/19 14:32 107 H 99 07/24/19 14:29 123 H 126/88 07/24/19 14:27 128 H 99 07/24/19 14:22 143 H 99 07/24/19 14:17 99 H 98 07/24/19 14:14 86 121/78 07/24/19 14:12 100 H 98 07/24/19 14:07 119 H 98 07/24/19 14:02 114 H 99 07/24/19 13:59 108 H 120/89 07/24/19 13:57 124 H 99 07/24/19 13:52 96 H 99 07/24/19 13:47 110 H 98 07/24/19 13:44 106 H 109/68 07/24/19 13:42 86 99 07/24/19 13:37 76 99 07/24/19 13:32 89 99 07/24/19 13:30 88 127/82 07/24/19 13:27 80 99 07/24/19 13:22 84 100 07/24/19 13:17 90 99 07/24/19 13:14 85 122/73 07/24/19 13:12 93 H 99 07/24/19 13:07 77 99 07/24/19 13:02 83 100 07/24/19 12:58 73 123/72 07/24/19 12:57 78 98 07/24/19 12:52 79 99 07/24/19 12:47 94 H 99 07/24/19 12:45 75 130/70 07/24/19 12:42 88 99 07/24/19 12:37 94 H 99 07/24/19 12:32 94 H 99 07/24/19 12:30 87 129/73 07/24/19 12:27 96 H 99 07/24/19 12:22 83 100 07/24/19 12:20 37.0 C 20 07/24/19 12:17 87 100 07/24/19 12:14 80 123/75 07/24/19 12:12 92 H 99 07/24/19 12:07 69 99 07/24/19 12:02 69 99 07/24/19 11:59 68 111/70 07/24/19 11:57 73 99 07/24/19 11:52 72 98 07/24/19 11:47 77 99 07/24/19 11:43 77 114/76 07/24/19 11:42 83 100 07/24/19 11:37 80 99 07/24/19 11:32 75 99 07/24/19 11:29 86 20 124/71 07/24/19 11:27 107 H 100 07/24/19 11:22 91 H 99 07/24/19 11:17 88 99 07/24/19 11:14 105 H 121/84 07/24/19 11:12 90 100 07/24/19 11:07 93 H 100 07/24/19 11:02 110 H 99 07/24/19 11:00 108 H 113/93 07/24/19 10:57 92 H 99 07/24/19 10:52 36.8 C 85 20 99 07/24/19 10:47 96 H 100 07/24/19 10:45 89 120/71 07/24/19 10:42 99 H 100 07/24/19 10:37 94 H 99 07/24/19 10:32 108 H 99 07/24/19 10:29 93 H 20 123/78 07/24/19 10:27 113 H 99 07/24/19 10:22 107 H 99 07/24/19 10:17 108 H 99 07/24/19 10:14 115 H 18 113/82 07/24/19 10:12 121 H 99 07/24/19 10:07 107 H 99 07/24/19 10:02 122 H 99 07/24/19 09:59 126 H 122/60 07/24/19 09:57 118 H 99 07/24/19 09:52 101 H 99 07/24/19 09:47 83 97 07/24/19 09:44 71 101/57 L 07/24/19 09:42 65 99 07/24/19 09:37 79 99 07/24/19 09:32 88 99 07/24/19 09:28 100 H 18 94/64 L 07/24/19 09:27 91 H 99 07/24/19 09:22 102 H 100 07/24/19 09:17 101 H 99 07/24/19 09:12 102 H 106/61 100 07/24/19 09:10 91 H 111/61 07/24/19 09:08 93 H 108/64 07/24/19 09:07 94 H 100 07/24/19 09:06 99 H 117/59 L 07/24/19 09:04 115/71 07/24/19 09:02 103 H 112/75 100 07/24/19 09:00 95 H 18 113/68 07/24/19 08:57 98 H 111/61 99 07/24/19 08:56 94 H 18 112/62 07/24/19 08:54 94 H 111/57 L 07/24/19 08:52 92 H 141/58 H 99 07/24/19 08:49 93 H 115/71 07/24/19 08:48 95 H 18 114/67 07/24/19 08:47 95 H 99 07/24/19 08:45 107 H 111/67 07/24/19 08:43 101 H 18 112/65 07/24/19 08:42 94 H 99 07/24/19 08:41 98 H 18 114/74 07/24/19 08:40 107 H 112/69 07/24/19 08:38 106 H 18 108/67 07/24/19 08:37 104 H 99 07/24/19 08:36 108 H 118/61 07/24/19 08:34 122 H 18 137/58 L 07/24/19 08:32 119 H 99 07/24/19 08:31 127 H 16 133/81 07/24/19 08:30 127 H 133/85 07/24/19 08:28 139 H 16 127/82 07/24/19 08:27 123 H 99 07/24/19 08:25 121 H 125/80 07/24/19 08:23 130 H 16 127/75 07/24/19 08:22 130 H 98 07/24/19 08:21 127 H 16 128/78 07/24/19 08:20 120 H 16 126/81 07/24/19 08:17 116 H 16 160/80 H 98 07/24/19 08:14 117 H 88 L 07/24/19 08:12 111 H 98 07/24/19 08:07 125 H 16 149/100 H 100 07/24/19 08:02 114 H 100 07/24/19 07:41 18 07/24/19 07:12 36.8 C 83 16 139/86 Transfer of Care Handoff Completed per policy Notes Mental Status: alert / awake / arousable and participated in evaluation Nausea / Vomiting: adequately controlled Pain: adequately controlled Airway Patency, RR, SpO2: stable & adequate BP & HR: stable & adequate Hydration State: stable & adequate Neuraxial Anesthesia: was administered and sensory block is resolving Anesthetic Complications: no major complications apparent and Pt Satisfied with anesthetic care
--- NOTE | 2019-07-25 01:01 | Operative Report ---
DATE OF OPERATION: 07/24/2019 PREOPERATIVE DIAGNOSES: The patient is a 23-year-old G1, P0 at 41 weeks and 3 days of gestation, who was admitted for scheduled induction of labor, presented in labor with contractions on the day of admission, arrest of dilatation in active phase, tachycardia, recurrent variable decelerations, category 2 strip, remote from delivery. POSTOPERATIVE DIAGNOSES: The patient is a 23-year-old G1, P0 at 41 weeks and 3 days of gestation, who was admitted for scheduled induction of labor, presented in labor with contractions on the day of admission, arrest of dilatation in active phase, tachycardia, recurrent variable decelerations, category 2 strip, remote from delivery. PROCEDURE: Primary low transverse with Pfannenstiel skin incision. SURGEON: Wade Elliott MD OFFICE CASHIER: Amelia So RN. ESTIMATED BLOOD LOSS: 700 mL. FLUIDS: 550 mL of lactated Ringer's. DRAINS: Eid catheter drained 500 mL of urine. ANESTHESIA: Epidural, Dr. Conner. COMPLICATIONS: None. FINDINGS: Baby was a viable female , delivered at 2253 hours in cephalic presentation, Apgars were 8/9. Maternal findings, normal uterus, fallopian tubes and ovaries. DESCRIPTION OF PROCEDURE: The patient was taken to the operating room where epidural anesthesia was checked to be adequate. She was placed in dorsal supine position with a leftward tilt. She was prepared and draped in usual sterile fashion. A Pfannenstiel skin incision was made and carried through to the underlying layer of fascia with the Bovie. Fascia was incised in the midline and incision was extended laterally with the help of Arriaga scissors. Lower aspect of the fascial incision was grasped with 2 Juanjo clamps, elevated, underlying rectus muscles were dissected off sharply with Arriaga scissors. Upper aspect of the fascia was elevated with Juanjo clamps and it was dissected off sharply with Arriaga scissors. Rectus muscles were in the midline and peritoneum was identified and entered bluntly with fingers. Peritoneal incision was extended superiorly and inferiorly with good visualization of the bladder. Bladder blade was inserted. Vesicouterine peritoneum was identified, grasped with pickups, entered sharply with Metzenbaum scissors and bladder flap was created digitally. Bladder blade was reinserted. Lower uterine segment was incised in transverse fashion. The incision was extended laterally with the help of fingers. Membranes were ruptured and meconium-stained fluid was obtained. Baby's head was delivered without difficulty. Shoulders were delivered with minimal traction. Mouth and nose were suctioned. Cord was clamped x2 and cut at 1-minute delay. Baby was handed off to the awaiting well head pumper, Dr. Hooper, and cord blood was obtained. Placenta was delivered manually as intact and complete. Uterus was exteriorized, cleared of all clots and debris, and massaged. She was given IV Oxytocin infusion as well as intramyometrial oxytocin and uterus firmed up. Uterine incision was repaired with 0 Vicryl in a running locked fashion and second imbricating layer was placed with 0 Vicryl in a running locked fashion. Excellent hemostasis was achieved. Cul-de-sac was irrigated with warm normal saline and suctioned. Uterus was returned to the abdomen. The pelvis was irrigated with warm normal saline and suctioned. Incision was checked to be again hemostatic. Parietal peritoneum was reapproximated with 3-0 Vicryl in a running fashion. Rectus muscles were reapproximated with 2-0 Vicryl in a running fashion. Excellent hemostasis was achieved. Rectus fascia was closed with 0 Vicryl in a running fashion. Subcuticular fat tissue was brought together with 3-0 Vicryl and skin was closed with 4-0 Monocryl in a subcuticular fashion. The patient tolerated the procedure well. Sponge, lap, needle count was correct x3. She was given 1250 mg of vancomycin and 500 mg of Azithromycin before surgery. She was taken to recovery room in stable condition. I attest to the content of the Intraoperative Record and any orders documented therein. Any exceptions are noted below. MTDD
[2019-07-25] MEDS: OXYTOCIN 20 UNITS in LACTATED RINGER'S 1,000 ML IV SCH ×2 (02:12→10:39)
[2019-07-25] MEDS: KETOROLAC 30 MG/ML VIAL IV PRN ×2 (03:09→09:19)
[2019-07-25 06:35] LABS: Basophils # (auto) 0.01 K/uL (0-0.2); Basophils % (auto) 0.1 %; Hematocrit (blood only) 31.4 % (37-47); Hemoglobin 10.8 g/dL (12.0-16.0); Immature Granulocytes # (auto) 0.07 K/uL (0.00-0.02); Immature Granulocytes % (auto) 0.4 %; Lymphocytes # (auto) 1.92 K/uL (1.2-3.4); Mean Corpuscular Hemoglobin 31.4 pg (25-34); Mean Corpuscular Hgb Conc 34.4 g/dL (32-36); Mean Corpuscular Volume 91.3 fL (80-100); Mean Platelet Volume 10.7 fL (7.4-10.4); Monocytes # (auto) 1.24 K/uL (0.11-0.59); Monocytes % (auto) 6.4 %; Neutrophils # (auto) 16.05 K/uL (1.4-6.5); Neutrophils % (auto) 83.1 %; Platelet Count 189 K/uL (130-400); RDW Coefficient of Variation 12.7 % (11.5-14.5); RDW Standard Deviation 42.6 fL (36.4-46.3); Red Blood Count 3.44 M/uL (4.2-5.4); White Blood Count 19.29 K/uL (4.8-10.8)
[2019-07-25 07:07] LABS: BUN Creatinine Ratio 9.7 (10-20); Calcium 8.2 mg/dl (8.5-10.1); Creatinine Clr Calc Pharmacy 127.2 ml/min; Est GFR (African American) 141.6; Est GFR (Non-African American) 122.2
[2019-07-25 07:10] LABS: Albumin Globulin Ratio 0.6 (0.9-2); Bilirubin,Total 0.8 mg/dl (0.2-1); Globulin 3.1 gm/dl (2.5-4.0); Total Protein 5.1 gm/dl (6.4-8.2)
[2019-07-25] MEDS: DOCUSATE SODIUM 100 MG CAP PO SCH ×2 (08:18→20:30)
[2019-07-25] MEDS: SIMETHICONE 80 MG CHEW PO SCH ×4 (08:19→20:30)
[2019-07-25] MEDS: PRENATAL VITAMIN 1 TAB PO SCH (08:19)
[2019-07-25] MEDS: FERROUS SULFATE 325 MG TAB PO SCH (08:19)
--- NOTE | 2019-07-25 09:34 | Surgery Progress Note ---
Date of Service July 25, 2019 Physical Exam Constitutional: WD/WN, vitals as above comfortable abdomen soft and non- tender passing gas incision clean dry and intact dressing removed no edema neg Reagan's tolerating diet Results & Data Vital Signs (Past 12 Hours) Vital Signs Temp Pulse Pulse Resp BP BP Pulse Ox 07/25/19 09:15 18 97 07/25/19 08:15 18 98 07/25/19 08:00 36.7 C 84 20 112/70 97 07/25/19 07:15 18 96 07/25/19 06:00 36.6 C 76 18 114/64 98 07/25/19 05:01 16 94 07/25/19 04:05 16 97 07/25/19 03:05 18 97 07/25/19 02:40 18 97 07/25/19 02:09 80 107/69 97 07/25/19 02:04 83 97 07/25/19 01:59 74 110/67 96 07/25/19 01:54 76 96 07/25/19 01:49 74 110/66 97 07/25/19 01:48 18 07/25/19 01:44 76 97 07/25/19 01:39 74 110/67 96 07/25/19 01:34 76 97 07/25/19 01:29 86 119/88 97 07/25/19 01:24 94 H 98 07/25/19 01:19 87 115/80 98 07/25/19 01:18 18 07/25/19 01:14 84 98 07/25/19 01:09 78 116/79 98 07/25/19 01:04 85 98 07/25/19 00:59 89 114/75 97 07/25/19 00:54 94 H 98 07/25/19 00:49 84 115/81 97 07/25/19 00:48 18 07/25/19 00:44 90 96 07/25/19 00:39 90 121/82 97 07/25/19 00:38 18 07/25/19 00:34 87 97 07/25/19 00:29 93 H 111/72 96 07/25/19 00:28 18 07/25/19 00:24 90 95 07/25/19 00:19 88 111/69 97 07/25/19 00:18 18 07/25/19 00:14 100 H 96 07/25/19 00:13 95 H 94 07/25/19 00:09 89 112/76 97 07/25/19 00:08 18 07/25/19 00:04 92 H 96 07/24/19 23:59 94 H 108/70 97 07/24/19 23:54 95 H 98 07/24/19 23:49 89 86 L 07/24/19 23:48 37.6 C H 90 18 113/72 07/24/19 22:27 146 H 114/70 99 07/24/19 22:22 134 H 99 07/24/19 22:17 116 H 99 07/24/19 22:13 118 H 122/79 07/24/19 22:12 124 H 99 07/24/19 22:07 129 H 99 07/24/19 22:02 114 H 99 07/24/19 21:57 120 H 126/72 100 07/24/19 21:52 97 H 99 07/24/19 21:47 94 H 98 07/24/19 21:44 102 H 117/72 07/24/19 21:42 95 H 99 07/24/19 21:37 86 99 07/24/19 21:32 97 H 99 Laboratory Results Laboratory Results - last 48 hr 07/24/19 07/24/19 07/24/19 07:39 07:39 08:27 WBC 18.29 H RBC 4.42 Hgb 13.9 Hct 40.1 MCV 90.7 MCH 31.4 MCHC 34.7 RDW Std Deviation 42.3 RDW Coeff of Arik 12.9 Plt Count 252 MPV 11.4 H Immature Gran % (Auto) Neut % (Auto) Lymph % (Auto) [place] % (Auto) Eos % (Auto) Baso % (Auto) Immature Gran # (Auto) Neut # (Auto) Lymph # (Auto) [place] # (Auto) Eos # (Auto) Baso # (Auto) PT INR APTT PTT Ratio Sodium 136 Potassium 3.8 Chloride 106 Carbon Dioxide 20 L Anion Gap 10.0 BUN 7 Creatinine 0.72 Est Cr Clr Drug Dosing 118.3 Est GFR ( Amer) 134.9 Est GFR (Non-Af Amer) 116.4 BUN/Creatinine Ratio 10.1 Glucose 97 Calcium 9.4 Total Bilirubin 0.4 AST 54 H ALT 106 H Alkaline Phosphatase 276 H Lactate Dehydrogenase Total Protein 7.1 Albumin 3.0 L Globulin 4.1 H Albumin/Globulin Ratio 0.7 L Urine Color Urine Appearance Urine pH Ur Specific [place] Urine Protein Urine Glucose (UA) Urine Ketones Urine Blood Urine Nitrite Urine Bilirubin Urine Urobilinogen Ur Leukocyte Esterase Ur Random Creatinine U Random Total Protein Protein/Creatinin Ratio Blood Type O Positive Antibody Screen NEGATIVE 07/24/19 07/24/19 07/24/19 08:27 12:51 12:51 WBC 18.23 H RBC 4.24 Hgb 13.3 Hct 38.5 MCV 90.8 MCH 31.4 MCHC 34.5 RDW Std Deviation 42.6 RDW Coeff of Arik 12.9 Plt Count 229 MPV 11.6 H Immature Gran % (Auto) 0.4 Neut % (Auto) 85.4 Lymph % (Auto) 9.4 [place] % (Auto) 4.7 Eos % (Auto) 0.0 Baso % (Auto) 0.1 Immature Gran # (Auto) 0.07 H Neut # (Auto) 15.58 H Lymph # (Auto) 1.71 [place] # (Auto) 0.86 H Eos # (Auto) 0.00 Baso # (Auto) 0.01 PT 9.5 INR 0.9 APTT 25.3 PTT Ratio 0.9 Sodium Potassium Chloride Carbon Dioxide Anion Gap BUN Creatinine Est Cr Clr Drug Dosing Est GFR ( Amer) Est GFR (Non-Af Amer) BUN/Creatinine Ratio Glucose Calcium Total Bilirubin AST ALT Alkaline Phosphatase Lactate Dehydrogenase 202 Total Protein Albumin Globulin Albumin/Globulin Ratio Urine Color Urine Appearance Urine pH Ur Specific [place] Urine Protein Urine Glucose (UA) Urine Ketones Urine Blood Urine Nitrite Urine Bilirubin Urine Urobilinogen Ur Leukocyte Esterase Ur Random Creatinine U Random Total Protein Protein/Creatinin Ratio Blood Type Antibody Screen 07/24/19 07/24/19 07/24/19 12:51 13:44 13:44 WBC RBC Hgb Hct MCV MCH MCHC RDW Std Deviation RDW Coeff of Arik Plt Count MPV Immature Gran % (Auto) Neut % (Auto) Lymph % (Auto) [place] % (Auto) Eos % (Auto) Baso % (Auto) Immature Gran # (Auto) Neut # (Auto) Lymph # (Auto) [place] # (Auto) Eos # (Auto) Baso # (Auto) PT INR APTT PTT Ratio Sodium 137 Potassium 3.7 Chloride 106 Carbon Dioxide 22 Anion Gap 9.0 BUN 7 Creatinine 0.66 Est Cr Clr Drug Dosing 129.1 Est GFR ( Amer) 142.3 Est GFR (Non-Af Amer) 122.8 BUN/Creatinine Ratio 10.3 Glucose 76 Calcium 8.7 Total Bilirubin 0.5 AST 58 H ALT 113 H Alkaline Phosphatase 250 H Lactate Dehydrogenase Total Protein 6.8 Albumin 2.8 L Globulin 4.0 Albumin/Globulin Ratio 0.7 L Urine Color Yellow Urine Appearance Clear Urine pH 7.0 Ur Specific [place] 1.009 Urine Protein Negative Urine Glucose (UA) Negative Urine Ketones 2+ H Urine Blood Negative Urine Nitrite Negative Urine Bilirubin Negative Urine Urobilinogen Negative Ur Leukocyte Esterase Negative Ur Random Creatinine 35.5 U Random Total Protein < 5.0 Protein/Creatinin Ratio TNP Blood Type Antibody Screen 07/24/19 07/24/19 07/24/19 18:56 18:56 18:56 WBC 17.68 H RBC 4.05 L Hgb 12.6 Hct 36.9 L MCV 91.1 MCH 31.1 MCHC 34.1 RDW Std Deviation 42.6 RDW Coeff of Arik 12.8 Plt Count 205 MPV 11.3 H Immature Gran % (Auto) 0.4 Neut % (Auto) 84.9 Lymph % (Auto) 7.6 [place] % (Auto) 7.0 Eos % (Auto) 0.0 Baso % (Auto) 0.1 Immature Gran # (Auto) 0.07 H Neut # (Auto) 15.02 H Lymph # (Auto) 1.35 [place] # (Auto) 1.23 H Eos # (Auto) 0.00 Baso # (Auto) 0.01 PT INR APTT PTT Ratio Sodium 138 Potassium 3.5 Chloride 106 Carbon Dioxide 24 Anion Gap 8.0 BUN 7 Creatinine 0.81 Est Cr Clr Drug Dosing 105.2 Est GFR ( Amer) 117.0 Est GFR (Non-Af Amer) 100.9 BUN/Creatinine Ratio 8.4 L Glucose 100 H Calcium 9.1 Total Bilirubin 0.6 AST 68 H ALT 112 H Alkaline Phosphatase 227 H Lactate Dehydrogenase 176 Total Protein 6.1 L Albumin 2.4 L Globulin 3.7 Albumin/Globulin Ratio 0.7 L Urine Color Urine Appearance Urine pH Ur Specific [place] Urine Protein Urine Glucose (UA) Urine Ketones Urine Blood Urine Nitrite Urine Bilirubin Urine Urobilinogen Ur Leukocyte Esterase Ur Random Creatinine U Random Total Protein Protein/Creatinin Ratio Blood Type Antibody Screen 07/25/19 07/25/19 06:24 06:24 WBC 19.29 H RBC 3.44 L Hgb 10.8 L Hct 31.4 L MCV 91.3 MCH 31.4 MCHC 34.4 RDW Std Deviation 42.6 RDW Coeff of Arik 12.7 Plt Count 189 MPV 10.7 H Immature Gran % (Auto) 0.4 Neut % (Auto) 83.1 Lymph % (Auto) 10.0 [place] % (Auto) 6.4 Eos % (Auto) 0.0 Baso % (Auto) 0.1 Immature Gran # (Auto) 0.07 H Neut # (Auto) 16.05 H Lymph # (Auto) 1.92 [place] # (Auto) 1.24 H Eos # (Auto) 0.00 Baso # (Auto) 0.01 PT INR APTT PTT Ratio Sodium 139 Potassium 4.0 Chloride 109 H Carbon Dioxide 25 Anion Gap 5.0 BUN 6 L Creatinine 0.67 Est Cr Clr Drug Dosing 127.2 Est GFR ( Amer) 141.6 Est GFR (Non-Af Amer) 122.2 BUN/Creatinine Ratio 9.7 L Glucose 79 Calcium 8.2 L Total Bilirubin 0.8 AST 65 H ALT 102 H Alkaline Phosphatase 173 H Lactate Dehydrogenase Total Protein 5.1 L Albumin 2.0 L Globulin 3.1 Albumin/Globulin Ratio 0.6 L Urine Color Urine Appearance Urine pH Ur Specific [place] Urine Protein Urine Glucose (UA) Urine Ketones Urine Blood Urine Nitrite Urine Bilirubin Urine Urobilinogen Ur Leukocyte Esterase Ur Random Creatinine U Random Total Protein Protein/Creatinin Ratio Blood Type Antibody Screen
--- NOTE | 2019-07-25 11:34 | Anesthesiology Progress Note ---
Date of Service July 25, 2019 Anesthesia Post Procedure Vital Signs Vital Signs: Temp Pulse Pulse Resp BP BP Pulse Ox 07/25/19 10:15 18 97 07/25/19 09:15 18 97 07/25/19 08:15 18 98 07/25/19 08:00 36.7 C 84 20 112/70 97 07/25/19 07:15 18 96 07/25/19 06:00 36.6 C 76 18 114/64 98 07/25/19 05:01 16 94 07/25/19 04:05 16 97 07/25/19 03:05 18 97 07/25/19 02:40 18 97 07/25/19 02:09 80 107/69 97 07/25/19 02:04 83 97 07/25/19 01:59 74 110/67 96 07/25/19 01:54 76 96 07/25/19 01:49 74 110/66 97 07/25/19 01:48 18 07/25/19 01:44 76 97 07/25/19 01:39 74 110/67 96 07/25/19 01:34 76 97 07/25/19 01:29 86 119/88 97 07/25/19 01:24 94 H 98 07/25/19 01:19 87 115/80 98 07/25/19 01:18 18 07/25/19 01:14 84 98 07/25/19 01:09 78 116/79 98 07/25/19 01:04 85 98 07/25/19 00:59 89 114/75 97 07/25/19 00:54 94 H 98 07/25/19 00:49 84 115/81 97 07/25/19 00:48 18 07/25/19 00:44 90 96 07/25/19 00:39 90 121/82 97 07/25/19 00:38 18 07/25/19 00:34 87 97 07/25/19 00:29 93 H 111/72 96 07/25/19 00:28 18 07/25/19 00:24 90 95 07/25/19 00:19 88 111/69 97 07/25/19 00:18 18 07/25/19 00:14 100 H 96 07/25/19 00:13 95 H 94 07/25/19 00:09 89 112/76 97 07/25/19 00:08 18 07/25/19 00:04 92 H 96 07/24/19 23:59 94 H 108/70 97 07/24/19 23:54 95 H 98 07/24/19 23:49 89 86 L 07/24/19 23:48 37.6 C H 90 18 113/72 07/24/19 22:27 146 H 114/70 99 07/24/19 22:22 134 H 99 07/24/19 22:17 116 H 99 07/24/19 22:13 118 H 122/79 07/24/19 22:12 124 H 99 07/24/19 22:07 129 H 99 07/24/19 22:02 114 H 99 07/24/19 21:57 120 H 126/72 100 07/24/19 21:52 97 H 99 07/24/19 21:47 94 H 98 07/24/19 21:44 102 H 117/72 07/24/19 21:42 95 H 99 07/24/19 21:37 86 99 07/24/19 21:32 97 H 99 07/24/19 21:28 90 115/70 07/24/19 21:27 91 H 99 07/24/19 21:22 94 H 98 07/24/19 21:17 97 H 99 07/24/19 21:13 93 H 118/70 07/24/19 21:12 102 H 99 07/24/19 21:07 103 H 98 07/24/19 21:02 113 H 99 07/24/19 20:57 106 H 116/73 100 07/24/19 20:52 109 H 98 07/24/19 20:47 127 H 99 07/24/19 20:42 113 H 125/75 100 07/24/19 20:37 116 H 125/72 100 07/24/19 20:32 119 H 129/70 100 07/24/19 20:27 114 H 100 07/24/19 20:26 113 H 122/72 07/24/19 20:22 111 H 99 07/24/19 20:21 120 H 119/72 07/24/19 20:17 110 H 118/72 100 07/24/19 20:13 105 H 117/67 07/24/19 20:12 108 H 100 07/24/19 20:08 96 H 117/67 07/24/19 20:07 109 H 99 07/24/19 20:03 82 123/68 07/24/19 20:02 84 100 07/24/19 19:58 86 118/70 07/24/19 19:57 87 99 07/24/19 19:52 85 122/71 100 07/24/19 19:49 86 119/70 07/24/19 19:47 87 99 07/24/19 19:42 96 H 119/74 99 07/24/19 19:38 88 119/71 07/24/19 19:37 83 100 07/24/19 19:33 86 114/67 07/24/19 19:32 83 100 07/24/19 19:30 37.5 C 18 07/24/19 19:27 84 117/72 100 07/24/19 19:23 89 120/73 07/24/19 19:22 86 100 07/24/19 19:17 102 H 130/77 100 07/24/19 19:13 101 H 131/79 07/24/19 19:12 104 H 100 07/24/19 19:07 87 129/74 100 07/24/19 19:02 86 121/71 100 07/24/19 18:57 86 100 07/24/19 18:52 82 121/68 100 07/24/19 18:48 86 117/69 07/24/19 18:47 81 100 07/24/19 18:44 92 H 123/87 07/24/19 18:42 82 100 07/24/19 18:38 86 122/78 07/24/19 18:37 82 100 07/24/19 18:35 37.2 C 20 07/24/19 18:33 90 126/71 07/24/19 18:32 89 100 07/24/19 18:27 79 120/66 100 07/24/19 18:25 84 111/76 07/24/19 18:22 80 100 07/24/19 18:17 93 H 100 07/24/19 18:15 93 H 18 107/69 07/24/19 18:12 85 100 07/24/19 18:07 99 H 100 07/24/19 18:02 91 H 100 07/24/19 17:59 97 H 20 112/71 07/24/19 17:57 106 H 100 07/24/19 17:52 99 H 100 07/24/19 17:47 82 100 07/24/19 17:44 104 H 132/69 07/24/19 17:42 89 99 07/24/19 17:37 85 100 07/24/19 17:32 87 100 07/24/19 17:29 105 H 115/71 07/24/19 17:28 37.6 C H 20 07/24/19 17:27 90 100 07/24/19 17:22 97 H 99 07/24/19 17:17 85 100 07/24/19 17:13 83 128/80 07/24/19 17:12 81 100 07/24/19 17:07 82 99 07/24/19 17:02 84 100 07/24/19 16:59 82 123/81 07/24/19 16:57 82 99 07/24/19 16:52 93 H 99 07/24/19 16:50 37.1 C 18 07/24/19 16:47 94 H 99 07/24/19 16:43 99 H 20 129/80 07/24/19 16:42 109 H 100 07/24/19 16:37 93 H 100 07/24/19 16:32 104 H 100 07/24/19 16:28 102 H 129/76 07/24/19 16:27 97 H 100 07/24/19 16:22 93 H 100 07/24/19 16:17 93 H 99 07/24/19 16:14 78 130/73 07/24/19 16:12 77 99 07/24/19 16:07 78 99 07/24/19 16:02 79 100 07/24/19 16:00 20 07/24/19 15:58 78 128/78 07/24/19 15:57 78 99 07/24/19 15:52 83 99 07/24/19 15:47 104 H 99 07/24/19 15:43 77 115/72 07/24/19 15:42 79 100 07/24/19 15:37 82 98 07/24/19 15:32 79 100 07/24/19 15:28 81 18 116/73 07/24/19 15:27 79 98 07/24/19 15:22 85 99 07/24/19 15:17 89 99 07/24/19 15:14 81 118/74 07/24/19 15:12 108 H 99 07/24/19 15:07 81 99 07/24/19 15:02 84 98 07/24/19 15:00 37.3 C 88 20 119/73 07/24/19 14:57 87 99 07/24/19 14:52 95 H 98 07/24/19 14:47 104 H 99 07/24/19 14:44 102 H 127/64 07/24/19 14:42 100 H 99 07/24/19 14:37 121 H 98 07/24/19 14:32 107 H 99 07/24/19 14:29 123 H 126/88 07/24/19 14:27 128 H 99 07/24/19 14:22 143 H 99 07/24/19 14:17 99 H 98 07/24/19 14:14 86 121/78 07/24/19 14:12 100 H 98 07/24/19 14:07 119 H 98 07/24/19 14:02 114 H 99 07/24/19 13:59 108 H 120/89 07/24/19 13:57 124 H 99 07/24/19 13:52 96 H 99 07/24/19 13:47 110 H 98 07/24/19 13:44 106 H 109/68 07/24/19 13:42 86 99 07/24/19 13:37 76 99 07/24/19 13:32 89 99 07/24/19 13:30 88 127/82 07/24/19 13:27 80 99 07/24/19 13:22 84 100 07/24/19 13:17 90 99 07/24/19 13:14 85 122/73 07/24/19 13:12 93 H 99 07/24/19 13:07 77 99 07/24/19 13:02 83 100 07/24/19 12:58 73 123/72 07/24/19 12:57 78 98 07/24/19 12:52 79 99 07/24/19 12:47 94 H 99 07/24/19 12:45 75 130/70 07/24/19 12:42 88 99 07/24/19 12:37 94 H 99 07/24/19 12:32 94 H 99 07/24/19 12:30 87 129/73 07/24/19 12:27 96 H 99 07/24/19 12:22 83 100 07/24/19 12:20 37.0 C 20 07/24/19 12:17 87 100 07/24/19 12:14 80 123/75 07/24/19 12:12 92 H 99 07/24/19 12:07 69 99 07/24/19 12:02 69 99 07/24/19 11:59 68 111/70 07/24/19 11:57 73 99 07/24/19 11:52 72 98 07/24/19 11:47 77 99 07/24/19 11:43 77 114/76 07/24/19 11:42 83 100 07/24/19 11:37 80 99 Pain Intensity Lower Abdomen: Pain Intensity: 2 Transfer of Care Handoff Completed per policy Notes Mental Status: alert / awake / arousable and participated in evaluation Patient Amnestic to Procedure: Yes Nausea / Vomiting: adequately controlled Pain: adequately controlled Airway Patency, RR, SpO2: stable & adequate BP & HR: stable & adequate Hydration State: stable & adequate Anesthetic Complications: no major complications apparent and Pt Satisfied with anesthetic care
[2019-07-25] MEDS ORDERED: PROMETHAZINE HCL 25 MG in SODIUM CHLORIDE 0.9% 50 ML IV PRN (16:20)
[2019-07-25] MEDS ORDERED: MEPERIDINE HCL 50 MG/ML CARP IV PRN (16:20)
[2019-07-25] MEDS ORDERED: ONDANSETRON INJ 2 MG/ML 2 ML VIAL IV PRN (16:20)
[2019-07-25] MEDS ORDERED: KETOROLAC 30 MG/ML VIAL IV PRN (16:20)
[2019-07-25] MEDS ORDERED: DiphenhydrAMINE HCL 50 MG/ML VIAL IV PRN (16:20)
[2019-07-25] MEDS ORDERED: bisacodyL 5 MG TABEC PO SCH (20:00)
[2019-07-25] MEDS: OXYCODONE/ACETAMINOPHEN 5mg/325mg TAB PO PRN (21:29)
[2019-07-25] MEDS: IBUPROFEN 600 MG TAB PO PRN (21:30)
[2019-07-26 07:17] LABS: Basophils # (auto) 0.01 K/uL (0-0.2); Basophils % (auto) 0.1 %; Hematocrit (blood only) 31.3 % (37-47); Hemoglobin 10.6 g/dL (12.0-16.0); Immature Granulocytes # (auto) 0.08 K/uL (0.00-0.02); Immature Granulocytes % (auto) 0.4 %; Lymphocytes # (auto) 1.63 K/uL (1.2-3.4); Lymphocytes % (auto) 8.3 %; Mean Corpuscular Hemoglobin 31.6 pg (25-34); Mean Corpuscular Hgb Conc 33.9 g/dL (32-36); Mean Corpuscular Volume 93.4 fL (80-100); Mean Platelet Volume 10.4 fL (7.4-10.4); Monocytes # (auto) 1.25 K/uL (0.11-0.59); Monocytes % (auto) 6.4 %; Neutrophils % (auto) 84.8 %; Platelet Count 203 K/uL (130-400); RDW Coefficient of Variation 13.1 % (11.5-14.5); RDW Standard Deviation 45.1 fL (36.4-46.3); Red Blood Count 3.35 M/uL (4.2-5.4); White Blood Count 19.57 K/uL (4.8-10.8)
[2019-07-26] MEDS: IBUPROFEN 600 MG TAB PO PRN ×3 (08:09→18:08)
[2019-07-26] MEDS: FERROUS SULFATE 325 MG TAB PO SCH (08:09)
[2019-07-26] MEDS: SIMETHICONE 80 MG CHEW PO SCH ×4 (08:09→20:44)
[2019-07-26] MEDS: PRENATAL VITAMIN 1 TAB PO SCH (08:09)
[2019-07-26] MEDS: OXYCODONE/ACETAMINOPHEN 5mg/325mg TAB PO PRN ×3 (08:09→18:09)
[2019-07-26] MEDS: DOCUSATE SODIUM 100 MG CAP PO SCH ×2 (08:09→20:44)
--- NOTE | 2019-07-26 08:49 | Obstetrical Progress Note ---
Date of Service July 26, 2019 Physical Exam Physical Exam: abdomen soft and non tender incision is clean and dry vaginal bleeding scant hgb 10.6 no calf tenderness ambulating well Results & Data Vital Signs (Past 12 Hours) Vital Signs Temp Pulse Resp BP 07/25/19 23:35 36.8 C 87 18 106/67
[2019-07-26] MEDS ORDERED: bisacodyL 10 MG SUPP PR PRN (23:40)
[2019-07-27] MEDS: IBUPROFEN 600 MG TAB PO PRN ×3 (00:24→10:27)
[2019-07-27] MEDS: OXYCODONE/ACETAMINOPHEN 5mg/325mg TAB PO PRN ×3 (00:25→10:26)
[2019-07-27] MEDS: PRENATAL VITAMIN 1 TAB PO SCH (08:17)
[2019-07-27] MEDS: DOCUSATE SODIUM 100 MG CAP PO SCH (08:17)
[2019-07-27] MEDS: FERROUS SULFATE 325 MG TAB PO SCH (08:17)
[2019-07-27] MEDS: SIMETHICONE 80 MG CHEW PO SCH ×2 (08:21→10:49)
[2019-07-27 08:53] LABS: Basophils # (auto) 0.02 K/uL (0-0.2); Basophils % (auto) 0.1 %; Hematocrit (blood only) 28.3 % (37-47); Hemoglobin 9.6 g/dL (12.0-16.0); Immature Granulocytes # (auto) 0.07 K/uL (0.00-0.02); Immature Granulocytes % (auto) 0.5 %; Lymphocytes # (auto) 2.05 K/uL (1.2-3.4); Lymphocytes % (auto) 13.5 %; Mean Corpuscular Hemoglobin 31.5 pg (25-34); Mean Corpuscular Hgb Conc 33.9 g/dL (32-36); Mean Corpuscular Volume 92.8 fL (80-100); Mean Platelet Volume 9.9 fL (7.4-10.4); Monocytes # (auto) 1.02 K/uL (0.11-0.59); Monocytes % (auto) 6.7 %; Neutrophils # (auto) 12.02 K/uL (1.4-6.5); Neutrophils % (auto) 79.2 %; Platelet Count 222 K/uL (130-400); RDW Coefficient of Variation 13.1 % (11.5-14.5); RDW Standard Deviation 44.6 fL (36.4-46.3); Red Blood Count 3.05 M/uL (4.2-5.4); White Blood Count 15.18 K/uL (4.8-10.8)
[2019-07-27 09:24] LABS: Albumin Globulin Ratio 0.5 (0.9-2); BUN Creatinine Ratio 9.7 (10-20); Bilirubin,Total 0.2 mg/dl (0.2-1); Calcium 8.5 mg/dl (8.5-10.1); Creatinine Clr Calc Pharmacy 149.5 ml/min; Est GFR (African American) 149.3; Est GFR (Non-African American) 128.8; Globulin 3.8 gm/dl (2.5-4.0); Potassium 3.4 mmol/L (3.5-5.1); Total Protein 5.8 gm/dl (6.4-8.2)
--- NOTE | 2019-07-27 10:51 | Obstetrical Progress Note ---
Date of Service July 27, 2019 Subjective Patient is seen and examined. She feels well, no complaints. Pain is under control with oral meds. Ambulating without dizziness Voiding without difficulty Tolerating regular diet with out N&V Flatus + BM neg Bleeding is minimal No fever/ chills/ CP/ SOB/ N&V/ Leg pain Breast feeding without problems Vital Signs Temp Pulse Resp BP Pulse Ox 07/27/19 07:40 36.7 C 99 H 18 119/78 98 07/26/19 23:25 36.5 C 87 16 121/77 99 07/26/19 15:38 36.6 C 93 H 20 104/70 97 Lab Results 07/24/19 07/24/19 07/24/19 Range/Units 07:39 07:39 08:27 WBC 18.29 H (4.8-10.8) K/uL RBC 4.42 (4.2-5.4) M/uL Hgb 13.9 (12.0-16.0) g/dL Hct 40.1 (37-47) % MCV 90.7 (80-100) fL MCH 31.4 (25-34) pg MCHC 34.7 (32-36) g/dL RDW Std Deviation 42.3 (36.4-46.3) fL RDW Coeff of Arik 12.9 (11.5-14.5) % Plt Count 252 (130-400) K/uL MPV 11.4 H (7.4-10.4) fL Immature Gran % (Auto) % Neut % (Auto) % Lymph % (Auto) % Leake % (Auto) % Eos % (Auto) % Baso % (Auto) % Immature Gran # (Auto) (0.00-0.02) K/uL Neut # (Auto) (1.4-6.5) K/uL Lymph # (Auto) (1.2-3.4) K/uL Leake # (Auto) (0.11-0.59) K/uL Eos # (Auto) (0-0.5) K/uL Baso # (Auto) (0-0.2) K/uL PT (9.0-12.0) Seconds INR (0.9-1.1) APTT (21.0-31.0) Seconds PTT Ratio Sodium 136 (136-145) mmol/L Potassium 3.8 (3.5-5.1) mmol/L Chloride 106 (98-107) mmol/L Carbon Dioxide 20 L (21-32) mmol/L Anion Gap 10.0 (3-11) BUN 7 (7-18) mg/dl Creatinine 0.72 (0.6-1.2) mg/dl Est Cr Clr Drug Dosing 118.3 ml/min Est GFR ( Amer) 134.9 Est GFR (Non-Af Amer) 116.4 BUN/Creatinine Ratio 10.1 (10-20) Glucose 97 (70-99) mg/dl Calcium 9.4 (8.5-10.1) mg/dl Total Bilirubin 0.4 (0.2-1) mg/dl AST 54 H (15-37) U/L ALT 106 H (12-78) U/L Alkaline Phosphatase 276 H (45-117) U/L Lactate Dehydrogenase (84-246) U/L Total Protein 7.1 (6.4-8.2) gm/dl Albumin 3.0 L (3.4-5.0) gm/dl Globulin 4.1 H (2.5-4.0) gm/dl Albumin/Globulin Ratio 0.7 L (0.9-2) Urine Color Urine Appearance (Clear) Urine pH (4.5-7.5) Ur Specific Concan (1.000-1.030) Urine Protein (Negative) Urine Glucose (UA) (Negative) Urine Ketones (Negative) Urine Blood (Negative) Urine Nitrite (Negative) Urine Bilirubin (Negative) Urine Urobilinogen (Negative) Ur Leukocyte Esterase (Negative) Ur Random Creatinine mg/dl U Random Total Protein (0-11.9) mg/dl Protein/Creatinin Ratio Blood Type O Positive Antibody Screen NEGATIVE 07/24/19 07/24/19 07/24/19 Range/Units 08:27 12:51 12:51 WBC 18.23 H (4.8-10.8) K/uL RBC 4.24 (4.2-5.4) M/uL Hgb 13.3 (12.0-16.0) g/dL Hct 38.5 (37-47) % MCV 90.8 (80-100) fL MCH 31.4 (25-34) pg MCHC 34.5 (32-36) g/dL RDW Std Deviation 42.6 (36.4-46.3) fL RDW Coeff of Arik 12.9 (11.5-14.5) % Plt Count 229 (130-400) K/uL MPV 11.6 H (7.4-10.4) fL Immature Gran % (Auto) 0.4 % Neut % (Auto) 85.4 % Lymph % (Auto) 9.4 % Leake % (Auto) 4.7 % Eos % (Auto) 0.0 % Baso % (Auto) 0.1 % Immature Gran # (Auto) 0.07 H (0.00-0.02) K/uL Neut # (Auto) 15.58 H (1.4-6.5) K/uL Lymph # (Auto) 1.71 (1.2-3.4) K/uL Leake # (Auto) 0.86 H (0.11-0.59) K/uL Eos # (Auto) 0.00 (0-0.5) K/uL Baso # (Auto) 0.01 (0-0.2) K/uL PT 9.5 (9.0-12.0) Seconds INR 0.9 (0.9-1.1) APTT 25.3 (21.0-31.0) Seconds PTT Ratio 0.9 Sodium (136-145) mmol/L Potassium (3.5-5.1) mmol/L Chloride (98-107) mmol/L Carbon Dioxide (21-32) mmol/L Anion Gap (3-11) BUN (7-18) mg/dl Creatinine (0.6-1.2) mg/dl Est Cr Clr Drug Dosing ml/min Est GFR ( Amer) Est GFR (Non-Af Amer) BUN/Creatinine Ratio (10-20) Glucose (70-99) mg/dl Calcium (8.5-10.1) mg/dl Total Bilirubin (0.2-1) mg/dl AST (15-37) U/L ALT (12-78) U/L Alkaline Phosphatase (45-117) U/L Lactate Dehydrogenase 202 (84-246) U/L Total Protein (6.4-8.2) gm/dl Albumin (3.4-5.0) gm/dl Globulin (2.5-4.0) gm/dl Albumin/Globulin Ratio (0.9-2) Urine Color Urine Appearance (Clear) Urine pH (4.5-7.5) Ur Specific [place]can (1.000-1.030) Urine Protein (Negative) Urine Glucose (UA) (Negative) Urine Ketones (Negative) Urine Blood (Negative) Urine Nitrite (Negative) Urine Bilirubin (Negative) Urine Urobilinogen (Negative) Ur Leukocyte Esterase (Negative) Ur Random Creatinine mg/dl U Random Total Protein (0-11.9) mg/dl Protein/Creatinin Ratio Blood Type Antibody Screen 07/24/19 07/24/19 07/24/19 Range/Units 12:51 13:44 13:44 WBC (4.8-10.8) K/uL RBC (4.2-5.4) M/uL Hgb (12.0-16.0) g/dL Hct (37-47) % MCV (80-100) fL MCH (25-34) pg MCHC (32-36) g/dL RDW Std Deviation (36.4-46.3) fL RDW Coeff of Arik (11.5-14.5) % Plt Count (130-400) K/uL MPV (7.4-10.4) fL Immature Gran % (Auto) % Neut % (Auto) % Lymph % (Auto) % Leake % (Auto) % Eos % (Auto) % Baso % (Auto) % Immature Gran # (Auto) (0.00-0.02) K/uL Neut # (Auto) (1.4-6.5) K/uL Lymph # (Auto) (1.2-3.4) K/uL Leake # (Auto) (0.11-0.59) K/uL Eos # (Auto) (0-0.5) K/uL Baso # (Auto) (0-0.2) K/uL PT (9.0-12.0) Seconds INR (0.9-1.1) APTT (21.0-31.0) Seconds PTT Ratio Sodium 137 (136-145) mmol/L Potassium 3.7 (3.5-5.1) mmol/L Chloride 106 (98-107) mmol/L Carbon Dioxide 22 (21-32) mmol/L Anion Gap 9.0 (3-11) BUN 7 (7-18) mg/dl Creatinine 0.66 (0.6-1.2) mg/dl Est Cr Clr Drug Dosing 129.1 ml/min Est GFR ( Amer) 142.3 Est GFR (Non-Af Amer) 122.8 BUN/Creatinine Ratio 10.3 (10-20) Glucose 76 (70-99) mg/dl Calcium 8.7 (8.5-10.1) mg/dl Total Bilirubin 0.5 (0.2-1) mg/dl AST 58 H (15-37) U/L ALT 113 H (12-78) U/L Alkaline Phosphatase 250 H (45-117) U/L Lactate Dehydrogenase (84-246) U/L Total Protein 6.8 (6.4-8.2) gm/dl Albumin 2.8 L (3.4-5.0) gm/dl Globulin 4.0 (2.5-4.0) gm/dl Albumin/Globulin Ratio 0.7 L (0.9-2) Urine Color Yellow Urine Appearance Clear (Clear) Urine pH 7.0 (4.5-7.5) Ur Specific Concan 1.009 (1.000-1.030) Urine Protein Negative (Negative) Urine Glucose (UA) Negative (Negative) Urine Ketones 2+ H (Negative) Urine Blood Negative (Negative) Urine Nitrite Negative (Negative) Urine Bilirubin Negative (Negative) Urine Urobilinogen Negative (Negative) Ur Leukocyte Esterase Negative (Negative) Ur Random Creatinine 35.5 mg/dl U Random Total Protein < 5.0 (0-11.9) mg/dl Protein/Creatinin Ratio TNP Blood Type Antibody Screen 07/24/19 07/24/19 07/24/19 Range/Units 18:56 18:56 18:56 WBC 17.68 H (4.8-10.8) K/uL RBC 4.05 L (4.2-5.4) M/uL Hgb 12.6 (12.0-16.0) g/dL Hct 36.9 L (37-47) % MCV 91.1 (80-100) fL MCH 31.1 (25-34) pg MCHC 34.1 (32-36) g/dL RDW Std Deviation 42.6 (36.4-46.3) fL RDW Coeff of Arik 12.8 (11.5-14.5) % Plt Count 205 (130-400) K/uL MPV 11.3 H (7.4-10.4) fL Immature Gran % (Auto) 0.4 % Neut % (Auto) 84.9 % Lymph % (Auto) 7.6 % Leake % (Auto) 7.0 % Eos % (Auto) 0.0 % Baso % (Auto) 0.1 % Immature Gran # (Auto) 0.07 H (0.00-0.02) K/uL Neut # (Auto) 15.02 H (1.4-6.5) K/uL Lymph # (Auto) 1.35 (1.2-3.4) K/uL Leake # (Auto) 1.23 H (0.11-0.59) K/uL Eos # (Auto) 0.00 (0-0.5) K/uL Baso # (Auto) 0.01 (0-0.2) K/uL PT (9.0-12.0) Seconds INR (0.9-1.1) APTT (21.0-31.0) Seconds PTT Ratio Sodium 138 (136-145) mmol/L Potassium 3.5 (3.5-5.1) mmol/L Chloride 106 (98-107) mmol/L Carbon Dioxide 24 (21-32) mmol/L Anion Gap 8.0 (3-11) BUN 7 (7-18) mg/dl Creatinine 0.81 (0.6-1.2) mg/dl Est Cr Clr Drug Dosing 105.2 ml/min Est GFR ( Amer) 117.0 Est GFR (Non-Af Amer) 100.9 BUN/Creatinine Ratio 8.4 L (10-20) Glucose 100 H (70-99) mg/dl Calcium 9.1 (8.5-10.1) mg/dl Total Bilirubin 0.6 (0.2-1) mg/dl AST 68 H (15-37) U/L ALT 112 H (12-78) U/L Alkaline Phosphatase 227 H (45-117) U/L Lactate Dehydrogenase 176 (84-246) U/L Total Protein 6.1 L (6.4-8.2) gm/dl Albumin 2.4 L (3.4-5.0) gm/dl Globulin 3.7 (2.5-4.0) gm/dl Albumin/Globulin Ratio 0.7 L (0.9-2) Urine Color Urine Appearance (Clear) Urine pH (4.5-7.5) Ur Specific Concan (1.000-1.030) Urine Protein (Negative) Urine Glucose (UA) (Negative) Urine Ketones (Negative) Urine Blood (Negative) Urine Nitrite (Negative) Urine Bilirubin (Negative) Urine Urobilinogen (Negative) Ur Leukocyte Esterase (Negative) Ur Random Creatinine mg/dl U Random Total Protein (0-11.9) mg/dl Protein/Creatinin Ratio Blood Type Antibody Screen 07/25/19 07/25/19 07/26/19 Range/Units 06:24 06:24 07:06 WBC 19.29 H 19.57 H (4.8-10.8) K/uL RBC 3.44 L 3.35 L (4.2-5.4) M/uL Hgb 10.8 L 10.6 L (12.0-16.0) g/dL Hct 31.4 L 31.3 L (37-47) % MCV 91.3 93.4 (80-100) fL MCH 31.4 31.6 (25-34) pg MCHC 34.4 33.9 (32-36) g/dL RDW Std Deviation 42.6 45.1 (36.4-46.3) fL RDW Coeff of Arik 12.7 13.1 (11.5-14.5) % Plt Count 189 203 (130-400) K/uL MPV 10.7 H 10.4 (7.4-10.4) fL Immature Gran % (Auto) 0.4 0.4 % Neut % (Auto) 83.1 84.8 % Lymph % (Auto) 10.0 8.3 % Leake % (Auto) 6.4 6.4 % Eos % (Auto) 0.0 0.0 % Baso % (Auto) 0.1 0.1 % Immature Gran # (Auto) 0.07 H 0.08 H (0.00-0.02) K/uL Neut # (Auto) 16.05 H 16.60 H (1.4-6.5) K/uL Lymph # (Auto) 1.92 1.63 (1.2-3.4) K/uL Leake # (Auto) 1.24 H 1.25 H (0.11-0.59) K/uL Eos # (Auto) 0.00 0.00 (0-0.5) K/uL Baso # (Auto) 0.01 0.01 (0-0.2) K/uL PT (9.0-12.0) Seconds INR (0.9-1.1) APTT (21.0-31.0) Seconds PTT Ratio Sodium 139 (136-145) mmol/L Potassium 4.0 (3.5-5.1) mmol/L Chloride 109 H (98-107) mmol/L Carbon Dioxide 25 (21-32) mmol/L Anion Gap 5.0 (3-11) BUN 6 L (7-18) mg/dl Creatinine 0.67 (0.6-1.2) mg/dl Est Cr Clr Drug Dosing 127.2 ml/min Est GFR ( Amer) 141.6 Est GFR (Non-Af Amer) 122.2 BUN/Creatinine Ratio 9.7 L (10-20) Glucose 79 (70-99) mg/dl Calcium 8.2 L (8.5-10.1) mg/dl Total Bilirubin 0.8 (0.2-1) mg/dl AST 65 H (15-37) U/L ALT 102 H (12-78) U/L Alkaline Phosphatase 173 H (45-117) U/L Lactate Dehydrogenase (84-246) U/L Total Protein 5.1 L (6.4-8.2) gm/dl Albumin 2.0 L (3.4-5.0) gm/dl Globulin 3.1 (2.5-4.0) gm/dl Albumin/Globulin Ratio 0.6 L (0.9-2) Urine Color Urine Appearance (Clear) Urine pH (4.5-7.5) Ur Specific Concan (1.000-1.030) Urine Protein (Negative) Urine Glucose (UA) (Negative) Urine Ketones (Negative) Urine Blood (Negative) Urine Nitrite (Negative) Urine Bilirubin (Negative) Urine Urobilinogen (Negative) Ur Leukocyte Esterase (Negative) Ur Random Creatinine mg/dl U Random Total Protein (0-11.9) mg/dl Protein/Creatinin Ratio Blood Type Antibody Screen 07/27/19 07/27/19 07/27/19 Range/Units 08:40 08:40 08:40 WBC 15.18 H (4.8-10.8) K/uL RBC 3.05 L (4.2-5.4) M/uL Hgb 9.6 L (12.0-16.0) g/dL Hct 28.3 L (37-47) % MCV 92.8 (80-100) fL MCH 31.5 (25-34) pg MCHC 33.9 (32-36) g/dL RDW Std Deviation 44.6 (36.4-46.3) fL RDW Coeff of Arik 13.1 (11.5-14.5) % Plt Count 222 (130-400) K/uL MPV 9.9 (7.4-10.4) fL Immature Gran % (Auto) 0.5 % Neut % (Auto) 79.2 % Lymph % (Auto) 13.5 % Leake % (Auto) 6.7 % Eos % (Auto) 0.0 % Baso % (Auto) 0.1 % Immature Gran # (Auto) 0.07 H (0.00-0.02) K/uL Neut # (Auto) 12.02 H (1.4-6.5) K/uL Lymph # (Auto) 2.05 (1.2-3.4) K/uL Leake # (Auto) 1.02 H (0.11-0.59) K/uL Eos # (Auto) 0.00 (0-0.5) K/uL Baso # (Auto) 0.02 (0-0.2) K/uL PT (9.0-12.0) Seconds INR (0.9-1.1) APTT (21.0-31.0) Seconds PTT Ratio Sodium 141 (136-145) mmol/L Potassium 3.4 L (3.5-5.1) mmol/L Chloride 110 H (98-107) mmol/L Carbon Dioxide 23 (21-32) mmol/L Anion Gap 8.0 (3-11) BUN 6 L (7-18) mg/dl Creatinine 0.57 L (0.6-1.2) mg/dl Est Cr Clr Drug Dosing 149.5 ml/min Est GFR ( Amer) 149.3 Est GFR (Non-Af Amer) 128.8 BUN/Creatinine Ratio 9.7 L (10-20) Glucose 83 (70-99) mg/dl Calcium 8.5 (8.5-10.1) mg/dl Total Bilirubin 0.2 (0.2-1) mg/dl AST 27 (15-37) U/L ALT 57 (12-78) U/L Alkaline Phosphatase 147 H (45-117) U/L Lactate Dehydrogenase 187 (84-246) U/L Total Protein 5.8 L (6.4-8.2) gm/dl Albumin 2.0 L (3.4-5.0) gm/dl Globulin 3.8 (2.5-4.0) gm/dl Albumin/Globulin Ratio 0.5 L (0.9-2) Urine Color Urine Appearance (Clear) Urine pH (4.5-7.5) Ur Specific Concan (1.000-1.030) Urine Protein (Negative) Urine Glucose (UA) (Negative) Urine Ketones (Negative) Urine Blood (Negative) Urine Nitrite (Negative) Urine Bilirubin (Negative) Urine Urobilinogen (Negative) Ur Leukocyte Esterase (Negative) Ur Random Creatinine mg/dl U Random Total Protein (0-11.9) mg/dl Protein/Creatinin Ratio Blood Type Antibody Screen PE: General: Alert, orientedx3, NAD CVS: S1S2 RRR Lungs; CTAB Abd: soft, NT, ND, BS+, fundus firm, below Umbilicus Incision: Clean, dry, intact Perineum intact, Lochia rubra minimal Ext; NT, no edema AP: 23 yo s/p C Section, pod# 3 VSS Afebrile doing well Continue routine postop care Encourage ambulation, PO intake All questions were answered Discussed when to call D/C home , f/u in office Results & Data Vital Signs (Past 12 Hours) Vital Signs Temp Pulse Resp BP Pulse Ox 07/27/19 07:40 36.7 C 99 H 18 119/78 98 07/26/19 23:25 36.5 C 87 16 121/77 99
[2019-07-27] MEDS ORDERED: MAGNESIUM HYDROXIDE SUSP 30 ML UDC PO STA (11:14)
--- NOTE | 2019-08-04 04:19 | Discharge Summary ---
DETAILS OF ADMISSION: The patient is a 23-year-old G1, P0 at 41 weeks and 2 days of gestation, who was scheduled for induction of labor for postdates on 07/24/2019. She presented to labor and delivery with contractions started earlier that morning and it was painful, she requested epidural for pain. She was having regular contractions every 2-3 minutes. Her cervix was 3 cm dilated, 80% effaced, -3 with bulging bag. She was admitted, started IV fluids. She received epidural for pain and her heart rate has been reassuring with category 1. After epidural, she was stable, her pain was under control. She was resting. Her exam was 4 cm, 90%, -2 with a bulging bag. Artificial rupture of membranes was performed at 12:23 p.m. in the afternoon and then her cervix changed slowly to 6-7 cm, 90%, -1 and then there was no change despite regular contractions and baby was occiput posterior and heart rate started having recurrent deep variable decelerations and sometimes with tachycardia. After discussion, decision was made to proceed with section for arrest of dilatation, occiput posterior position and suspected intra-amniotic infection. The patient already received 1200 mg of vancomycin and azithromycin before surgery. She delivered a viable female infant at 2353 p.m. Apgars were 8/9. Her surgery was uncomplicated. See dictated OP note for details. On postop day #1, the patient was doing well. Vital signs stable, afebrile. Urine output was adequate. Her incision was clean, dry and intact. She was passing gas. She tolerated regular diet, ambulated without dizziness. Her H and H was 12.6/36.9. On postop day #2, the patient was doing well. Vital signs stable, afebrile. Physical exam was unremarkable. Incision was clean, dry and intact. Abdomen was soft, nontender, nondistended. Hemoglobin was 10.6. She was ambulating, tolerating regular diet and passing gas. On postop day #3, the patient was doing well with no complaints. Vital signs stable, afebrile. Ambulating without dizziness, tolerating regular diet, passing gas and without difficulty. Vital signs were stable, afebrile. Physical exam was unremarkable. Her white count came down to 15,000 from 18,000. She was afebrile. Incision was clean, dry and intact. Abdomen was soft, nontender, nondistended. Her bleeding was minimal. She desired to be discharged on postoperative day #3 on 07/27/2019. Discharge instructions were given. Prescriptions were written for pain. She is to be seen in office in a week for incision check.
== END 2019-07-27 13:40 | disposition home or self-care (01) | DRG 788 ==
LOC: 4S1 07:03 → 4S2 07-25 02:25

== ENCOUNTER 2022-03-11 05:39 | Inpatient (IN) ==
--- NOTE | 2022-03-10 10:08 | Anesthesiology Consultation ---
Date of Service March 10, 2022 Assessment & Plan (1) Encounter for pre-operative examination: - COVID screening: Per pipeman on 03/10/2022: Travel screen negative, no known COVID-19 positive contacts or current COVID-19 related symptoms in past 2 weeks. Pt vaccinated. Surgeon arranging preop COVID testing, scheduled 03/09/2022. Awaiting results. 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 History Surgery Operation Date: 03/11/22 07:30 Proposed Procedures p Repeat Section - Wade Elliott MD Height/Weight Height: 5 ft 3 in Weight: 78.018 kg Allergies Allergy/AdvReac Type Severity Reaction Status Date / Time amoxicillin Allergy Intermediate Rash Verified 03/10/22 09:39 clindamycin Allergy Intermediate Rash Verified 03/10/22 09:39 sulfamethoxazole Allergy Intermediate Rash Verified 03/10/22 09:39 [From Bactrim] trimethoprim [From Bactrim] Allergy Intermediate Rash Verified 03/10/22 09:39 Medications Home Medications Medication Instructions Recorded Confirmed Last Taken vits no.124-ferrous fum 1 tab PO DAILY@08 #90 tab 07/27/19 03/10/22 Unknown 27 mg iron-folic acid 800 mcg tablet ( Vitamin) ursodiol 300 mg capsule 300 mg PO BID 03/10/22 03/10/22 Unknown Past Medical History Medical History Anxiety no meds Cholestatic pruritus Faint heart murmur 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
[2022-03-11] MEDS ORDERED: LACTATED RINGER'S 1,000 ML IV SCH ×3 (05:45→09:15)
[2022-03-11] MEDS ORDERED: ceFAZolin 2000MG 2,000 MG/15 ML SYR IV SCH (06:00)
[2022-03-11] MEDS ORDERED: CITRIC ACID/SODIUM CITRATE 15 ML UDC PO SCH ×2 (06:00)
[2022-03-11] MEDS ORDERED: ceFAZolin 2,000 MG in SYRINGE 0 ML IV SCH (06:00)
[2022-03-11 06:14] LABS: Hematocrit (blood only) 36.4 % (37-47); Hemoglobin 12.6 g/dL (12.0-16.0); Mean Corpuscular Hemoglobin 31.2 pg (25-34); Mean Corpuscular Volume 90.1 fL (80-100); Mean Platelet Volume 11.2 fL (7.4-10.4); Platelet Count 268 K/uL (130-400); RDW Coefficient of Variation 12.9 % (11.5-14.5); RDW Standard Deviation 42.3 fL (36.4-46.3); Red Blood Count 4.04 M/uL (4.2-5.4)
[2022-03-11 06:16] LABS: Mean Corpuscular Hgb Conc 34.6 g/dL (32-36)
[2022-03-11 06:33] LABS: ALC (manual) 3.28 K/uL (1.2-3.4); ANC (manual) 9.85 K/uL (1.4-6.5); Basophils # (manual) 0.12 K/uL (0-0.2); Basophils % (manual) 0.9 %; Lymphocytes # (manual) 3.28 K/uL (1.2-3.4); Lymphocytes % (manual) 24.1 %; Monocytes # (manual) 0.35 K/uL (0.11-0.59); Monocytes % (manual) 2.6 %; Neutrophils # (manual) 9.85 K/uL (1.4-6.5); Neutrophils % (manual) 72.4 %
[2022-03-11] MEDS ORDERED: ONDANSETRON INJ 2 MG/ML 2 ML VIAL IV PRN (07:18)
[2022-03-11] MEDS ORDERED: NALOXONE HCL 0.4 MG/1 ML VIAL/CARP IV PRN (07:18)
[2022-03-11] MEDS ORDERED: HYDROmorphone INJ 0.5 MG/0.5 ML SYR IV PRN (07:18)
[2022-03-11] MEDS ORDERED: NALBUPHINE HCL INJ 10 MG/ML AMP IV PRN (07:18)
[2022-03-11] MEDS ORDERED: NALOXONE HCL 1 MG in SODIUM CHLORIDE 0.9% 1000ML 1,000 ML IV PRN (07:18)
[2022-03-11] MEDS ORDERED: NALOXONE HCL 0.08 MG in SYRINGE 1.8 ML IV PRN (07:18)
[2022-03-11] MEDS ORDERED: diphenhydrAMINE 50 MG/ML VIAL IV PRN (07:18)
[2022-03-11] MEDS ORDERED: LACTATED RINGER'S 500 ML IV PRN (07:18)
[2022-03-11] MEDS ORDERED: MoRPHine SULFATE PF 1 MG/ML 10 ML AMP/VIAL INT SPINAL ONE (07:18)
[2022-03-11] MEDS ORDERED: ePHEDrine sulfate 50 MG/ML AMP IV PRN (07:18)
[2022-03-11] MEDS ORDERED: DC INTRASPINAL MORPHINE SCH (07:30)
[2022-03-11] MEDS ORDERED: NO NARCOTICS OR SEDATIVES SCH (07:30)
[2022-03-11] MEDS ORDERED: SODIUM CHLORIDE 0.9% 1000ML 1,000 ML IV SCH (07:30)
[2022-03-11] MEDS ORDERED: fentaNYL citrate 100 MCG/2 ML VIAL ONE (07:31)
[2022-03-11] MEDS ORDERED: MoRPHine SULFATE PF 1 MG/ML 10 ML AMP/VIAL ONE (07:31)
--- NOTE | 2022-03-11 07:31 | History & Physical Bridge Note ---
Date of Service March 11, 2022 History & Physical Bridge Note I have examined the patient, reviewed the History & Physical and in the interval since the performance of the History & Physical I have noted the following changes of clinical significance: no changes noted
[2022-03-11] MEDS ORDERED: OXYTOCIN 10 UNITS/ML 10ML VIAL ONE ×3 (07:32→08:16)
[2022-03-11] MEDS ORDERED: PHENYLEPHRINE 100MCG/ML 5ML SYR ONE (07:54)
[2022-03-11] MEDS ORDERED: ONDANSETRON INJ 2 MG/ML 2 ML VIAL ONE (08:26)
--- NOTE | 2022-03-11 09:10 | Post Operative Brief Note ---
Immediate Post Op Note v1 Date of Surgery March 11, 2022 Pre & Post Diagnosis Operation Date: 03/11/22 07:30 Pre-Op Diagnosis: Intrauterine at 38 weeks gestation cholestasis of desires repeat section, declines Post-Op Diagnosis: same I identified the patient and participated in the time-out.: Yes Procedure Operation Date: 03/11/22 07:30 Actual Procedures p Section in LD for live female infant at 0812 - Wade Elliott MD Surgeon Wade Elliott MD Cotton Agent Dr Brito Estimated Blood Loss 600 Findings Consistent with Post-Op Diagnosis Drains Eid Catheter (350 ml) Anesthesia Type Spinal Complications none
[2022-03-11] MEDS ORDERED: BENZOCAINE 20% AER SPR 82.5 GM CAN EXT PRN (09:12)
[2022-03-11] MEDS ORDERED: DIPHTHERIA/TETANUS/PERTUSSIS 0.5 ML SYR/VIAL IM ONE (09:12)
[2022-03-11] MEDS ORDERED: MEASLES, MUMPS & RUBELLA VIRUS VIAL SQ ONE (09:12)
[2022-03-11] MEDS ORDERED: SENNA 8.6 MG TAB PO PRN (09:12)
[2022-03-11] MEDS ORDERED: HYDROCORTISONE ACETATE 25 MG SUPP PR PRN (09:12)
[2022-03-11] MEDS ORDERED: MAGNESIUM HYDROXIDE SUSP 30 ML UDC PO PRN (09:12)
--- NOTE | 2022-03-11 09:54 | Anesthesiology Progress Note ---
Date of Service March 11, 2022 Anesthesia Post Procedure Vital Signs Vital Signs: Temp Pulse Resp BP Pulse Ox 03/11/22 09:50 85 99 03/11/22 09:46 59 L 105/59 L 03/11/22 09:45 61 16 100 03/11/22 09:40 74 98 03/11/22 09:37 61 107/56 L 03/11/22 09:35 71 16 99 03/11/22 09:30 72 99 03/11/22 09:26 70 107/66 03/11/22 09:25 84 18 99 03/11/22 09:20 70 100 03/11/22 09:15 36.4 C L 66 18 104/55 L 99 03/11/22 07:24 94 H 100 03/11/22 07:13 36.5 C 18 03/11/22 07:11 85 113/71 03/11/22 06:02 36.7 C 18 03/11/22 05:52 81 116/73 03/11/22 05:51 36.7 C 18 Pain Intensity Bilateral Lower Abdomen: Pain Intensity: 0 Transfer of Care Handoff Completed per policy Notes Mental Status: alert / awake / arousable Patient Amnestic to Procedure: Yes Nausea / Vomiting: adequately controlled Pain: adequately controlled Airway Patency, RR, SpO2: stable & adequate BP & HR: stable & adequate Hydration State: stable & adequate Neuraxial Anesthesia: was administered and sensory block is resolving Anesthetic Complications: no major complications apparent and Pt Satisfied with anesthetic care
[2022-03-11] MEDS: OXYTOCIN 20 UNITS in LACTATED RINGER'S 1,000 ML IV SCH ×2 (10:14→20:05)
[2022-03-11 11:14] LABS: Alanine Aminotransferase 141 U/L (7-52); Albumin Globulin Ratio 1.1 (0.9-2); Albumin Level 2.9 gm/dl (3.4-5.0); Alkaline Phosphatase 488 U/L (34-104); Anion Gap 7 (3-11); Aspartate Aminotransferase 80 U/L (13-39); Bilirubin,Total 0.5 mg/dl (0.2-1.0); Blood Urea Nitrogen 4 mg/dl (6-23); Calcium 8.7 mg/dl (8.5-10.1); Carbon Dioxide 23 mmol/L (21-32); Chloride 109 mmol/L (98-107); Creatinine Clr Calc Pharmacy 185.7 ml/min; Est GFR (African American) > 150.0 ml/min; Est GFR (Non-African American) 136.4 ml/min; Globulin 2.7 gm/dl (2.5-4.0); Glucose Fasting 100 mg/dl (70-99); Potassium 3.9 mmol/L (3.5-5.1); Sodium 139 mmol/L (136-145); Total Protein 5.6 gm/dl (6.0-8.3)
[2022-03-11] MEDS: KETOROLAC 30 MG/ML VIAL IV PRN ×3 (11:16→23:07)
--- NOTE | 2022-03-11 12:30 | Operative Report (OR) ---
DATE OF SURGERY: 03/11/2022. PREOPERATIVE DIAGNOSES: 1. The patient is a 26-year-old G2, P1-0-0-1 at 38.1 weeks of gestation with a prior history of , desires repeat , declines . 2. Intrauterine cholestasis of with markedly elevated bile acids at 100mmol/l. POSTOPERATIVE DIAGNOSES: 1. The patient is a 26-year-old G2, P1-0-0-1 at 38 weeks of gestation with a prior history of , desires repeat , declines . 2. Intrauterine cholestasis of with markedly elevated bile acids at 100 mmol/l.. PROCEDURE: Repeat low transverse with Pfannenstiel skin incision, lysis of adhesions. SURGEON: Wade Elliott MD DISK AND TAPE MACHINE TENDER: Ale Brito MD ESTIMATED BLOOD LOSS: 600 mL. DRAINS: Eid catheter drained 350 mL of clear urine. ANESTHESIA: Spinal. ANESTHESIOLOGIST: Dr. Hatch. COMPLICATIONS: None. FINDINGS: Baby was a viable female delivered at 8:12 a.m. Apgars 8/9, weight 3135 gr. Cephalic presentation, nuchal cord x1. Maternal findings: adhesion scarring of subcuticular layer and fascia, adhesion of visceral and parietal peritoneum. Normal ovaries and fallopian tubes. DESCRIPTION OF PROCEDURE: The patient was taken to the operating room where spinal anesthesia was given without difficulty. She was placed in dorsal supine position with a leftward tilt. She was prepared and draped in the usual sterile fashion. A Pfannenstiel skin incision was made and carried through to the underlying layer of fascia with the Bovie. Fascia was incised in the midline and incision was extended laterally with the help of Arriaga scissors and Bovie. There was scarring on the subcuticular layer and rectus fascia, those were gently incised. Then the upper aspect of the fascial incision was grasped with two Juanjo clamps, elevated, and underlying rectus muscles were dissected off sharply with Arriaga scissors and bluntly with fingers. Same thing was done on the lower aspect of the fascial incision and then the muscles were found to be attached and intact in the middle. They were incised with scalpel in the midline and then there was scarring under the muscle layer. Those were reduced with Arriaga and Metzenbaum scissors carefully while holding the muscles up and making sure there was no bowel and no bladder under it. After reducing the scars, the rectus muscles were in the midline and stretched manually with our hands bilaterally. There were more adhesions between the visceral peritoneum and the abdominal wall. Those were reduced gently with the tip of Bovie as well as Metzenbaum scissors. Then the bladder blade was inserted and the vesicouterine peritoneum was identified, grasped with pickups, and entered sharply with Metzenbaum scissors. Bladder flap was created digitally and bladder blade was reinserted. Lower uterine segment was incised in a transverse fashion. The incision was extended laterally with the help of fingers. Membranes were ruptured. Clear fluid was obtained. Baby's head was delivered without difficulty. Shoulders were delivered with minimal traction. There was a nuchal cord around the neck x1, which was reduced. Baby was vigorously moving and crying. The mouth and nose were suctioned. Baby was dried on the field. Cord was clamped x2 and cut at 1- minute delay. Baby was handed to the waiting pediatric team with Dr. Fontanez and then cord blood was obtained. Placenta was delivered manually as intact and complete. It was sent for pathology. The uterus was exteriorized and cleared of all clots and debris. Uterine incision was repaired with 0 Vicryl in a running locked fashion, and a second imbricating layer was placed with another 0 Vicryl in a running locked fashion. Excellent hemostasis was achieved. Cul-de-sac was irrigated with warm normal saline and suctioned and cul-de-sac was clean and intact. Ovaries and fallopian tubes appeared to be normal bilaterally. Uterus was returned to the abdomen. The serosal peritoneum, where the adhesion spots were covered with Seprafilm to prevent further adhesion. Incision was also covered with Seprafilm. Then it was noted that the parietal peritoneum was attached to the rectus muscles. So that layer was closed in a bulk manner continuously with 0 Vicryl. Excellent hemostasis was achieved. The rectus fascia was reapproximated with 0 Vicryl starting from both corners meeting in the midline and the subcuticular fat tissue was brought together with 3-0 Vicryl in a running fashion and the skin was closed with 4-0 Monocryl in a subcuticular fashion. The patient tolerated the procedure well. Sponge, lap, needle count was correct x3. No complications happened and I was present during whole procedure. The patient was taken to recovery room in stable condition. My engineer second assistant was needed to retract, to help and aid with delivery of and hemostasis. Job ID: [id number] [facility]
[2022-03-11] MEDS: ceFAZolin 2000MG 2,000 MG/15 ML SYR IV SCH (15:54)
[2022-03-11] MEDS: SIMETHICONE 80 MG CHEW PO SCH ×3 (16:56→19:15)
[2022-03-11] MEDS ORDERED: ACETAMINOPHEN 325 MG TAB PO PRN (17:04)
[2022-03-11] MEDS ORDERED: oxyCODONE/ACETAMINOPHEN 5mg/325mg TAB PO ONE (17:36)
[2022-03-11] MEDS: oxyCODONE/ACETAMINOPHEN 5mg/325mg TAB PO PRN (17:39)
[2022-03-11] MEDS: DOCUSATE SODIUM 100 MG CAP PO SCH (19:15)
[2022-03-12] MEDS: ceFAZolin 2000MG 2,000 MG/15 ML SYR IV SCH ×4 (01:00→23:36)
[2022-03-12] MEDS ORDERED: ONDANSETRON INJ 2 MG/ML 2 ML VIAL IV PRN (01:20)
[2022-03-12] MEDS ORDERED: diphenhydrAMINE Capsule 25 MG CAP PO PRN (01:20)
[2022-03-12] MEDS ORDERED: diphenhydrAMINE 50 MG/ML VIAL IV PRN (01:20)
[2022-03-12] MEDS ORDERED: MEPERIDINE HCL 50 MG/ML CARP IV PRN (01:20)
[2022-03-12] MEDS ORDERED: PROMETHAZINE HCL 25 MG in SODIUM CHLORIDE 0.9% 50 ML IV PRN (01:20)
[2022-03-12] MEDS: oxyCODONE/ACETAMINOPHEN 5mg/325mg TAB PO PRN (05:30)
[2022-03-12] MEDS: IBUPROFEN 600 MG TAB PO PRN ×3 (05:30→16:21)
--- NOTE | 2022-03-12 06:07 | Obstetrical Progress Note ---
Date of Service March 12, 2022 Assessment & Plan Admission and Anticipated Discharge Date Admission Date: March 11, 2022 Subjective Patient is seen and examined. She feels well, other than being hot. Temp 39.1 Pain is under control with oral meds. Ambulated without dizziness to BR unable to void. pain increased after 4 hours from catheter removal. 700 ml of urine was drained with catheter. Tolerating regular diet with out N&V Flatus + BM neg Bleeding is minimal No chills/ CP/ SOB/ N&V/ Leg pain Breast feeding without problems. Am labs pending Vital Signs Temp Pulse Resp BP Pulse Ox 03/12/22 04:45 39.1 C H 104 H 16 103/69 97 03/12/22 00:00 16 99 03/11/22 23:04 37.3 C 87 16 106/66 98 03/11/22 23:00 16 99 03/11/22 22:00 16 97 03/11/22 21:00 16 98 03/11/22 20:00 16 99 03/11/22 19:30 37.1 C 83 16 113/79 98 03/11/22 18:30 16 97 PE: General: Alert, orientedx3, NAD CVS: S1S2 RRR Lungs; CTAB Abd: soft, ND, BS+, fundus firm, below Umbilicus, appropriately tender Incision/Dressing: Clean, dry, intact Perineum intact, Lochia rubra minimal Ext; NT, no edema AP: 26 yo s/p Repeat C Section, ICP, pod#1 VSS, fever, 39.1 clinically doing well Eid cathether to drain ballder Pain control Labs, cultures, Chest XR Continue to monitor closely. Results & Data ([facility]) Vital Signs (Past 12 Hours) Vital Signs Temp Pulse Resp BP Pulse Ox 03/12/22 04:45 39.1 C H 104 H 16 103/69 97 03/12/22 00:00 16 99 03/11/22 23:04 37.3 C 87 16 106/66 98 03/11/22 23:00 16 99 03/11/22 22:00 16 97 03/11/22 21:00 16 98 03/11/22 20:00 16 99 03/11/22 19:30 37.1 C 83 16 113/79 98 03/11/22 18:30 16 97
[2022-03-12 06:40] LABS: Hematocrit (blood only) 34.9 % (37-47); Hemoglobin 12.3 g/dL (12.0-16.0); Mean Corpuscular Hgb Conc 35.2 g/dL (32-36); Mean Corpuscular Volume 90.9 fL (80-100); Mean Platelet Volume 10.9 fL (7.4-10.4); Platelet Count 245 K/uL (130-400); RDW Coefficient of Variation 12.8 % (11.5-14.5); RDW Standard Deviation 42.5 fL (36.4-46.3); Red Blood Count 3.84 M/uL (4.2-5.4); White Blood Count 23.48 K/uL (4.8-10.8)
[2022-03-12 07:07] LABS: Basophils # (auto) 0.02 K/uL (0-0.2); Basophils % (auto) 0.1 %; Immature Granulocytes # (auto) 0.12 K/uL (0.00-0.02); Immature Granulocytes % (auto) 0.5 %; Lymphocytes # (auto) 1.95 K/uL (1.2-3.4); Lymphocytes % (auto) 8.3 %; Monocytes # (auto) 0.89 K/uL (0.11-0.59); Monocytes % (auto) 3.8 %; Neutrophils % (auto) 87.3 %
[2022-03-12 07:11] LABS: Alanine Aminotransferase 116 U/L (7-52); Albumin Globulin Ratio 1.1 (0.9-2); Albumin Level 2.9 gm/dl (3.4-5.0); Alkaline Phosphatase 425 U/L (34-104); Anion Gap 7 (3-11); Aspartate Aminotransferase 76 U/L (13-39); BUN Creatinine Ratio 9.1 (10-20); Bilirubin,Total 0.7 mg/dl (0.2-1.0); Blood Urea Nitrogen 4 mg/dl (6-23); Calcium 8.4 mg/dl (8.5-10.1); Carbon Dioxide 23 mmol/L (21-32); Chloride 104 mmol/L (98-107); Creatinine Clr Calc Pharmacy 189.9 ml/min; Est GFR (African American) > 150.0 ml/min; Est GFR (Non-African American) 137.4 ml/min; Globulin 2.6 gm/dl (2.5-4.0); Glucose 75 mg/dl (70-99(Fasting)); Potassium 3.4 mmol/L (3.5-5.1); Sodium 134 mmol/L (136-145); Total Protein 5.5 gm/dl (6.0-8.3)
--- NOTE | 2022-03-12 07:22 | XRay Report ---
XR chest 1V portable CLINICAL HISTORY: fever TECHNIQUE: Single frontal radiograph of the chest was obtained. Comparison: None available at the time of this dictation. FINDINGS: No lines and tubes are seen. The cardiomediastinal silhouette is normal. The lungs are clear. No evid ence of pleural effusion or pneumothorax. IMPRESSION: No acute abnormalities and in particular no evidence of pneumonia. ACT 112: Negative or not required by law. Electronically signed by: Vinayak Cho M.D. 03/12/2022 7:20 AM
[2022-03-12] MEDS: cephALEXin 500 MG CAP PO SCH ×3 (09:42→20:39)
[2022-03-12] MEDS: FERROUS SULFATE 325 MG TAB PO SCH (09:42)
[2022-03-12] MEDS: PRENATAL VITAMIN 1 TAB PO SCH (09:42)
[2022-03-12] MEDS: SIMETHICONE 80 MG CHEW PO SCH ×4 (09:42→20:39)
[2022-03-12] MEDS: DOCUSATE SODIUM 100 MG CAP PO SCH ×2 (09:42→20:42)
--- NOTE | 2022-03-12 11:08 | Obstetrical Progress Note ---
Date of Service March 12, 2022 Subjective Ambulation: limited ambulation Voiding: cramer catheter in place Passing Gas:: Yes Diet Tolerance:: regular diet Lochia:: Small Feeding Type:: breast feeding Current Pain Level(1-10): 6 pain limiting her getting up Physical Exam Constitutional WD/WN, vitals as above Gastrointestinal (Abdomen) Inspection/Auscultation: abdomen normal to inspection, normal bowel sounds and + abdominal surgical incision incision c/d/i Skin no rashes, warm and dry no edema. neg Reagan's Neurologic patellar DTR's 2+ bilat, sensation intact Psychiatric A+Ox3, euthymic affect Results & Data ([facility]) Vital Signs (Past 12 Hours) Vital Signs Temp Pulse Resp BP Pulse Ox 03/12/22 06:40 37.3 C 03/12/22 04:45 39.1 C H 104 H 16 103/69 97 03/12/22 00:00 16 99 Laboratory Results Laboratory Results - last 72 hr 03/11/22 03/11/22 03/11/22 06:00 06:00 10:16 WBC 13.60 H RBC 4.04 L Hgb 12.6 Hct 36.4 L MCV 90.1 MCH 31.2 MCHC 34.6 RDW Std Deviation 42.3 RDW Coeff of Arik 12.9 Plt Count 268 MPV 11.2 H Immature Gran % (Auto) Neut % (Auto) Lymph % (Auto) [place] % (Auto) Eos % (Auto) Baso % (Auto) Neut # (Auto) Lymph # (Auto) [place] # (Auto) Eos # (Auto) Baso # (Auto) Immature Gran # (Auto) Neutrophils % (Manual) 72.4 Lymphocytes % (Manual) 24.1 Monocytes % (Manual) 2.6 Basophils % (Manual) 0.9 Neutrophils # (Manual) 9.85 H Total Absolute Neuts 9.85 H Lymphocytes # (Manual) 3.28 Total Abs Lymphocytes 3.28 Monocytes # (Manual) 0.35 Basophils # (Manual) 0.12 Sodium 139 Potassium 3.9 Chloride 109 H Carbon Dioxide 23 Anion Gap 7 BUN 4 L Creatinine 0.45 L Est Cr Clr Drug Dosing 185.7 Est GFR ( Amer) > 150.0 Est GFR (Non-Af Amer) 136.4 BUN/Creatinine Ratio Glucose Fasting Glucose 100 H Calcium 8.7 Total Bilirubin 0.5 AST 80 H ALT 141 H Alkaline Phosphatase 488 H Lactate Dehydrogenase Total Protein 5.6 L Albumin 2.9 L Globulin 2.7 Albumin/Globulin Ratio 1.1 Blood Type O Positive Antibody Screen NEGATIVE 03/11/22 03/12/22 03/12/22 10:16 06:13 06:13 WBC 23.48 H RBC 3.84 L Hgb 12.3 Hct 34.9 L MCV 90.9 MCH 32.0 MCHC 35.2 RDW Std Deviation 42.5 RDW Coeff of Arik 12.8 Plt Count 245 MPV 10.9 H Immature Gran % (Auto) 0.5 Neut % (Auto) 87.3 Lymph % (Auto) 8.3 [place] % (Auto) 3.8 Eos % (Auto) 0.0 Baso % (Auto) 0.1 Neut # (Auto) 20.50 H Lymph # (Auto) 1.95 [place] # (Auto) 0.89 H Eos # (Auto) 0.00 Baso # (Auto) 0.02 Immature Gran # (Auto) 0.12 H Neutrophils % (Manual) Lymphocytes % (Manual) Monocytes % (Manual) Basophils % (Manual) Neutrophils # (Manual) Total Absolute Neuts Lymphocytes # (Manual) Total Abs Lymphocytes Monocytes # (Manual) Basophils # (Manual) Sodium 134 L Potassium 3.4 L Chloride 104 Carbon Dioxide 23 Anion Gap 7 BUN 4 L Creatinine 0.44 L Est Cr Clr Drug Dosing 189.9 Est GFR ( Amer) > 150.0 Est GFR (Non-Af Amer) 137.4 BUN/Creatinine Ratio 9.1 L Glucose 75 Fasting Glucose Calcium 8.4 L Total Bilirubin 0.7 AST 76 H ALT 116 H Alkaline Phosphatase 425 H Lactate Dehydrogenase 183 Total Protein 5.5 L Albumin 2.9 L Globulin 2.6 Albumin/Globulin Ratio 1.1 Blood Type Antibody Screen
[2022-03-12] MEDS: ACETAMINOPHEN 1000 MG/100 ML IV IV PRN ×2 (12:44→20:39)
[2022-03-12] MEDS: oxyCODONE HCL IR 5 MG TAB (IMMEDIATE RELEASE) PO PRN ×3 (12:45→20:40)
[2022-03-12] MEDS ORDERED: bisacodyL 5 MG TABEC PO SCH (20:00)
[2022-03-13] MEDS: oxyCODONE HCL IR 5 MG TAB (IMMEDIATE RELEASE) PO PRN ×6 (00:17→20:57)
[2022-03-13] MEDS: IBUPROFEN 600 MG TAB PO PRN ×5 (03:22→20:56)
[2022-03-13] MEDS: ceFAZolin 2000MG 2,000 MG/15 ML SYR IV SCH (06:47)
[2022-03-13 07:00] LABS: Basophils # (auto) 0.03 K/uL (0-0.2); Basophils % (auto) 0.2 %; Eosinophils # (auto) 0.06 K/uL (0-0.5); Eosinophils % (auto) 0.3 %; Hematocrit (blood only) 32.3 % (37-47); Immature Granulocytes # (auto) 0.12 K/uL (0.00-0.02); Immature Granulocytes % (auto) 0.6 %; Lymphocytes # (auto) 2.35 K/uL (1.2-3.4); Lymphocytes % (auto) 11.8 %; Mean Corpuscular Hemoglobin 31.8 pg (25-34); Mean Corpuscular Hgb Conc 34.1 g/dL (32-36); Mean Corpuscular Volume 93.4 fL (80-100); Mean Platelet Volume 10.7 fL (7.4-10.4); Neutrophils # (auto) 15.83 K/uL (1.4-6.5); Neutrophils % (auto) 79.1 %; Platelet Count 280 K/uL (130-400); RDW Coefficient of Variation 13.1 % (11.5-14.5); RDW Standard Deviation 44.3 fL (36.4-46.3); Red Blood Count 3.46 M/uL (4.2-5.4); White Blood Count 19.99 K/uL (4.8-10.8)
[2022-03-13] MEDS: DOCUSATE SODIUM 100 MG CAP PO SCH ×2 (07:48→20:56)
[2022-03-13] MEDS: SIMETHICONE 80 MG CHEW PO SCH ×4 (07:49→20:56)
[2022-03-13] MEDS: FERROUS SULFATE 325 MG TAB PO SCH (07:49)
[2022-03-13] MEDS: PRENATAL VITAMIN 1 TAB PO SCH (07:49)
[2022-03-13] MEDS ORDERED: bisacodyL 10 MG SUPP PR PRN (09:12)
--- NOTE | 2022-03-13 09:43 | Obstetrical Progress Note ---
Date of Service March 13, 2022 Subjective Ambulation: ambulating normally Voiding: no voiding problems Passing Gas:: Yes Diet Tolerance:: regular diet Feeding Type:: breast feeding Current Pain Level(1-10): 0 doing well. working on breast feeding Physical Exam Constitutional WD/WN, vitals as above Gastrointestinal (Abdomen) Inspection/Auscultation: abdomen normal to inspection and + abdominal surgical incision incision c/d/i Skin no rashes, warm and dry Neurologic patellar DTR's 2+ bilat, sensation intact Results & Data ([facility]) Vital Signs (Past 12 Hours) Vital Signs Temp Pulse Resp BP Pulse Ox 03/13/22 03:24 37.4 C 03/13/22 00:25 36.7 C 83 16 110/76 99 Laboratory Results 03/11/22 03/11/22 03/11/22 06:00 06:00 10:16 WBC 13.60 H RBC 4.04 L Hgb 12.6 Hct 36.4 L MCV 90.1 MCH 31.2 MCHC 34.6 RDW Std Deviation 42.3 RDW Coeff of Arik 12.9 Plt Count 268 MPV 11.2 H Immature Gran % (Auto) Neut % (Auto) Lymph % (Auto) [place] % (Auto) Eos % (Auto) Baso % (Auto) Neut # (Auto) Lymph # (Auto) [place] # (Auto) Eos # (Auto) Baso # (Auto) Immature Gran # (Auto) Neutrophils % (Manual) 72.4 Lymphocytes % (Manual) 24.1 Monocytes % (Manual) 2.6 Basophils % (Manual) 0.9 Neutrophils # (Manual) 9.85 H Total Absolute Neuts 9.85 H Lymphocytes # (Manual) 3.28 Total Abs Lymphocytes 3.28 Monocytes # (Manual) 0.35 Basophils # (Manual) 0.12 Sodium 139 Potassium 3.9 Chloride 109 H Carbon Dioxide 23 Anion Gap 7 BUN 4 L Creatinine 0.45 L Est Cr Clr Drug Dosing 185.7 Est GFR ( Amer) > 150.0 Est GFR (Non-Af Amer) 136.4 BUN/Creatinine Ratio Glucose Fasting Glucose 100 H Calcium 8.7 Total Bilirubin 0.5 AST 80 H ALT 141 H Alkaline Phosphatase 488 H Lactate Dehydrogenase Total Protein 5.6 L Albumin 2.9 L Globulin 2.7 Albumin/Globulin Ratio 1.1 Blood Type O Positive Antibody Screen NEGATIVE 03/11/22 03/12/22 03/12/22 10:16 06:13 06:13 WBC 23.48 H RBC 3.84 L Hgb 12.3 Hct 34.9 L MCV 90.9 MCH 32.0 MCHC 35.2 RDW Std Deviation 42.5 RDW Coeff of Arik 12.8 Plt Count 245 MPV 10.9 H Immature Gran % (Auto) 0.5 Neut % (Auto) 87.3 Lymph % (Auto) 8.3 [place] % (Auto) 3.8 Eos % (Auto) 0.0 Baso % (Auto) 0.1 Neut # (Auto) 20.50 H Lymph # (Auto) 1.95 [place] # (Auto) 0.89 H Eos # (Auto) 0.00 Baso # (Auto) 0.02 Immature Gran # (Auto) 0.12 H Neutrophils % (Manual) Lymphocytes % (Manual) Monocytes % (Manual) Basophils % (Manual) Neutrophils # (Manual) Total Absolute Neuts Lymphocytes # (Manual) Total Abs Lymphocytes Monocytes # (Manual) Basophils # (Manual) Sodium 134 L Potassium 3.4 L Chloride 104 Carbon Dioxide 23 Anion Gap 7 BUN 4 L Creatinine 0.44 L Est Cr Clr Drug Dosing 189.9 Est GFR ( Amer) > 150.0 Est GFR (Non-Af Amer) 137.4 BUN/Creatinine Ratio 9.1 L Glucose 75 Fasting Glucose Calcium 8.4 L Total Bilirubin 0.7 AST 76 H ALT 116 H Alkaline Phosphatase 425 H Lactate Dehydrogenase 183 Total Protein 5.5 L Albumin 2.9 L Globulin 2.6 Albumin/Globulin Ratio 1.1 Blood Type Antibody Screen 03/13/22 06:41 WBC 19.99 H RBC 3.46 L Hgb 11.0 L Hct 32.3 L MCV 93.4 MCH 31.8 MCHC 34.1 RDW Std Deviation 44.3 RDW Coeff of Arik 13.1 Plt Count 280 MPV 10.7 H Immature Gran % (Auto) 0.6 Neut % (Auto) 79.1 Lymph % (Auto) 11.8 [place] % (Auto) 8.0 Eos % (Auto) 0.3 Baso % (Auto) 0.2 Neut # (Auto) 15.83 H Lymph # (Auto) 2.35 [place] # (Auto) 1.60 H Eos # (Auto) 0.06 Baso # (Auto) 0.03 Immature Gran # (Auto) 0.12 H Neutrophils % (Manual) Lymphocytes % (Manual) Monocytes % (Manual) Basophils % (Manual) Neutrophils # (Manual) Total Absolute Neuts Lymphocytes # (Manual) Total Abs Lymphocytes Monocytes # (Manual) Basophils # (Manual) Sodium Potassium Chloride Carbon Dioxide Anion Gap BUN Creatinine Est Cr Clr Drug Dosing Est GFR ( Amer) Est GFR (Non-Af Amer) BUN/Creatinine Ratio Glucose Fasting Glucose Calcium Total Bilirubin AST ALT Alkaline Phosphatase Lactate Dehydrogenase Total Protein Albumin Globulin Albumin/Globulin Ratio Blood Type Antibody Screen
[2022-03-13] MEDS: cephALEXin 500 MG CAP PO SCH ×3 (12:55→20:56)
[2022-03-14] MEDS: IBUPROFEN 600 MG TAB PO PRN ×4 (01:26→14:10)
[2022-03-14] MEDS: oxyCODONE HCL IR 5 MG TAB (IMMEDIATE RELEASE) PO PRN ×4 (01:27→14:10)
[2022-03-14 07:27] LABS: Hematocrit (blood only) 33.9 % (37-47); Hemoglobin 11.2 g/dL (12.0-16.0); Mean Corpuscular Hemoglobin 30.9 pg (25-34); Mean Corpuscular Volume 93.4 fL (80-100); Mean Platelet Volume 10.3 fL (7.4-10.4); Platelet Count 335 K/uL (130-400); RDW Coefficient of Variation 13.4 % (11.5-14.5); RDW Standard Deviation 45.8 fL (36.4-46.3); Red Blood Count 3.63 M/uL (4.2-5.4); White Blood Count 15.01 K/uL (4.8-10.8)
[2022-03-14 08:01] LABS: ALC (manual) 2.22 K/uL (1.2-3.4); ANC (manual) 11.74 K/uL (1.4-6.5); Eosinophils # (manual) 0.14 K/uL (0-0.5); Eosinophils % (manual) 0.9 %; Lymphocytes # (manual) 2.22 K/uL (1.2-3.4); Lymphocytes % (manual) 14.8 %; Monocytes # (manual) 0.92 K/uL (0.11-0.59); Monocytes % (manual) 6.1 %; Neutrophils # (manual) 11.74 K/uL (1.4-6.5); Neutrophils % (manual) 78.2 %
[2022-03-14] MEDS: SIMETHICONE 80 MG CHEW PO SCH ×2 (08:41→14:10)
[2022-03-14] MEDS: FERROUS SULFATE 325 MG TAB PO SCH (08:41)
[2022-03-14] MEDS: DOCUSATE SODIUM 100 MG CAP PO SCH (08:41)
[2022-03-14] MEDS: PRENATAL VITAMIN 1 TAB PO SCH (08:41)
--- NOTE | 2022-03-14 10:50 | Obstetrical Progress Note ---
Date of Service March 14, 2022 Subjective Ambulation: ambulating normally Voiding: no voiding problems Passing Gas:: Yes Diet Tolerance:: clear liquids Lochia:: Small Feeding Type:: breast feeding Review of Systems All systems reviewed & are unremarkable except as noted in HPI & below Physical Exam Constitutional WD/WN, vitals as above well developed and well nourished Eyes PERRL, conjunctivae normal, anicteric sclerae ENMT external ear and nose normal, oropharynx normal Neck trachea midline, no thyromegaly Respiratory normal respiratory effort, lungs clear to auscultation Cardiovascular RRR, no murmur, no edema Chest (Breasts) normal inspection/palpation of breasts Gastrointestinal (Abdomen) normal bowel sounds, soft, nontender, no hepatosplenomegaly Musculoskeletal no cyanosis or clubbing, extremities motor strength 5/5 Skin no rashes, warm and dry + incision (Clean,dry and intact) Neurologic patellar DTR's 2+ bilat, sensation intact Psychiatric A+Ox3, euthymic affect Genitourinary normal external appearance Lymphatic no cervical or axillary lymphadenopathy Results & Data ([facility]) Vital Signs (Past 12 Hours) Vital Signs Temp Pulse Resp BP Pulse Ox 03/14/22 09:11 37.1 C 110 H 22 117/80 03/13/22 23:10 37.1 C 85 18 105/70 98
--- NOTE | 2022-03-14 10:51 | Obstetrical Progress Note ---
Date of Service March 14, 2022 Assessment & Plan (1) delivery delivered: POD #3 pt doing well wishes to be disch home Results & Data ([facility]) Vital Signs (Past 12 Hours) Vital Signs Temp Pulse Resp BP Pulse Ox 03/14/22 09:11 37.1 C 110 H 22 117/80 03/13/22 23:10 37.1 C 85 18 105/70 98
--- NOTE | 2022-03-26 09:53 | Discharge Summary (DS) ---
DATE OF ADMISSION: 03/11/2022 DATE OF DISCHARGE: 03/14/2022 The patient is a 26-year-old G2, P1-0-0-1 at 38 and 1 weeks of gestation with a prior history of C-se ction, who desired repeat at 39 weeks. She was found to have intrauterine cholestasis with elevated liver enzymes and markedly elevated bile acids at 100 millimoles per liter. She was schedu led to have a on 03/11/2022. She delivered a viable female infant at 08:12 a.m. Apgars we re 8/9, weight was grams. Her surgery was uncomplicated. See dictated op note for details. O n postoperative period, the patient had a temperature of 39.1. Pain was well controlled with oral me dications, ambulating without assistance to the bathroom, but was unable to void. 700 mL of urine was drained with the catheter. She tolerated a regular diet. She was passing gas. Bleeding was minima l. without problems. Her physical exam was unremarkable. Lungs are clear. Abdomen was soft and nontender. Bowel sounds present. Fundus firm below the umbilicus. Incision was clean, dry and intact. Extremities nontende r, no edema. Lochia was minimal. Then, she had some blood work including CBC, which came back with elevated white count of 23,000. Chemistry with decreasing liver enzymes and urine and chest x-ray, w hich was unremarkable. She was then checked by Dr. Day later, she was doing well. Vital signs stab le, afebrile. Physical exam was unremarkable. On postoperative day #2, the patient was doing well. Vital signs stable, afebrile, passing gas, void ing without problems . Physical exam was unremarkable. On postoperative day #3, the pa charlie was doing well, vital signs stable, afebrile. She wanted to be discharged on postoperative day #3. Discharge instructions were given. Prescriptions were written for pain. She is to be seen in the office in a week. On discharge, her white count tend to decrease to 15,000. Job ID: [id number]
--- NOTE | 2022-04-17 09:51 | Coding Query ---
CODING QUERY To promote full compliance with coding requirements relating to patient care, provider participation is requested in all cases of bedspread cutter uncertainty. Please assist us with the question(s) below: Coding Question(s): Please confirm the clinical significance of temperature 39.1 on 03/11/22 and resulting chest x-ray on 03/12/22 by providing an associated diagnosis Physician's Response(s): Postoperative fever Puerperal fever Thank you Blank Coronado Principal Diagnosis: "that condition established after study, to be chiefly responsible for occasioning the admission of the patient to the hospital for care." Co-Existing Principal Diagnosis: "when two or more diagnoses equally meet the criteria for principal diagnosis as determined by the circumstances of admission, diagnostic work up, and/or therapy provided, and the Alphabetic Index, Tabular List, or another coding guideline does not provide sequencing direction, any one of the diagnoses may be sequenced first." "When the physician has documented what appears to be a current diagnosis in the body of the record, but has not included the diagnosis in the final diagnostic statement, the physician should be asked whether the diagnosis should be added." ([facility] 2 QTR90. p3-4) MUSTAPHA
--- NOTE | 2022-04-17 11:32 | Coding Query ---
CODING QUERY To promote full compliance with coding requirements relating to patient care, provider participation is requested in all cases of medical insurance coder uncertainty. Please assist us with the question(s) below: Coding Question(s): Unable to void is not an indexable diagnosis. Please provide a more specific diagnosis supporting urinary catheterization performed on 03/11 Physician's Response(s): Postoperative pain and urinary retention. Thank you Blank Coronado Principal Diagnosis: "that condition established after study, to be chiefly responsible for occasioning the admission of the patient to the hospital for care." Co-Existing Principal Diagnosis: "when two or more diagnoses equally meet the criteria for principal diagnosis as determined by the circumstances of admission, diagnostic work up, and/or therapy provided, and the Alphabetic Index, Tabular List, or another coding guideline does not provide sequencing direction, any one of the diagnoses may be sequenced first." "When the physician has documented what appears to be a current diagnosis in the body of the record, but has not included the diagnosis in the final diagnostic statement, the physician should be asked whether the diagnosis should be added." ([facility] 2 QTR90. p3-4) MUSTAPHA
== END 2022-03-14 15:10 | disposition home or self-care (01) | DRG 787 ==
LOC: 4S1 05:39 → 4E1 14:28 → EDSTATUS 03-17 07:30

== ENCOUNTER 2023-12-22 07:05 | Inpatient (IN) ==
--- NOTE | 2023-12-21 09:17 | Anesthesiology Consultation ---
Date of Service December 21, 2023 Assessment & Plan (1) Encounter for pre-operative examination: Infectious disease screening: Per assessment on 12/21/23: No known infectious disease contacts or current infectious disease symptoms. No noted recent Covid positive test result. Chart Review Chart Review: data entry specialist initiated History Surgery Operation Date: 12/22/23 09:00 Proposed Procedures p Repeat Section - Wade Elliott MD Height/Weight Height: 5 ft 3 in Weight: 81.647 kg Allergies Allergy/AdvReac Type Severity Reaction Status Date / Time amoxicillin Allergy Unknown Rash Verified 12/21/23 08:54 clindamycin Allergy Unknown Rash Verified 12/21/23 08:54 sulfamethoxazole Allergy Unknown Rash Verified 12/21/23 08:54 [From Bactrim] trimethoprim [From Bactrim] Allergy Unknown Rash Verified 12/21/23 08:54 Medications Home Medications Medication Instructions Recorded Confirmed Last Taken ferrous sulfate 325 mg (65 mg 325 mg PO QAM 12/14/23 12/21/23 Unknown iron) tablet,delayed release vits no.124-ferrous fum 1 tab PO QAM 12/14/23 12/21/23 Unknown 27 mg iron-folic acid 800 mcg tablet ( Vitamin) Past Medical History Medical History Anxiety no meds Cholestasis Hx - during 2nd Faint heart murmur "No issues" Hiatal hernia Told "didn't have one" with most recent evaluation Past Family History Family History Other No family history of adverse response to anesthesia Past Surgical History Surgical History History of anesthesia reaction Itchy with WTE (patient unsure what had caused this) History of section x2 - post 1st c/s "had infection and had to re-open" History of endoscopy History of shoulder surgery Left shoulder for torn ligaments [place] teeth extracted Social History Smoking Status: Never smoker Do You Dip or Chew Tobacco: No Hx Alcohol Use: No Hx Substance Use: No substance use type: does not use
[2023-12-22] MEDS: LACTATED RINGER'S 1,000 ML IV ONE (07:30)
--- NOTE | 2023-12-22 08:31 | History & Physical Bridge Note ---
Date of Service December 22, 2023 History & Physical Bridge Note I have examined the patient, reviewed the History & Physical and in the interval since the performance of the History & Physical I have noted the following changes of clinical significance: no changes noted
[2023-12-22 08:46] LABS: Hematocrit (blood only) 39.2 % (37.0-47.0); Hemoglobin 13.4 g/dl (12.0-16.0); Mean Corpuscular Hemoglobin 30.9 pg (25.0-34.0); Mean Corpuscular Hgb Conc 34.2 g/dL (32.0-36.0); Mean Corpuscular Volume 90.3 fL (80.0-100.0); Platelet Count 230 K/uL (130-400); RDW Coefficient of Variation 13.2 % (11.5-14.5); RDW Standard Deviation 43.6 fL (36.4-46.3); Red Blood Count 4.34 M/uL (4.20-5.40)
[2023-12-22] MEDS ORDERED: fentaNYL citrate PF 100 MCG/2 ML VIAL ONE (08:52)
[2023-12-22] MEDS ORDERED: ONDANSETRON INJ 2 MG/ML 2 ML VIAL ONE (08:52)
[2023-12-22] MEDS ORDERED: DEXAMETHASONE SOD INJ 4 MG/ML VIAL ONE (08:52)
[2023-12-22] MEDS ORDERED: MoRPHine SULFATE PF 1 MG/ML 10 ML AMP/VIAL ONE (08:52)
[2023-12-22] MEDS ORDERED: OXYTOCIN 10 UNITS/ML VIAL ONE ×3 (08:52→11:56)
[2023-12-22 09:34] LABS: Alanine Aminotransferase 213 U/L (7-52); Albumin Globulin Ratio 1.2 (0.9-2); Albumin Level 3.3 gm/dl (3.4-5.0); Alkaline Phosphatase 191 U/L (34-104); Anion Gap 7 (3-11); Aspartate Aminotransferase 102 U/L (13-39); BUN Creatinine Ratio 11.1 (10-20); Bilirubin,Total 0.5 mg/dl (0.2-1.0); Blood Urea Nitrogen 5 mg/dl (6-23); Calcium 8.7 mg/dl (8.6-10.3); Carbon Dioxide 23 mmol/L (21-32); Chloride 107 mmol/L (98-107); Creatinine Clr Calc Pharmacy 187.1 ml/min; Est GFR (African American) > 150.0 ml/min; Est GFR (Non-African American) 134.5 ml/min; Globulin 2.7 gm/dl (2.5-4.0); Glucose 84 mg/dl (70-99(Fasting)); Potassium 3.8 mmol/L (3.5-5.1); Sodium 137 mmol/L (136-145)
[2023-12-22] MEDS: ceFAZolin 2000MG 2,000 MG/15 ML SYR IV SCH (10:35)
--- OUTSIDE RECORDS SUMMARY | 2023-12-22 11:00 | External Medical Summary | Summary of Care ---
Author Name Unknown Organization [facility] Address [address] [facility] [place] [address] Phone [phone] Care Team Providers Care Navy Airspace Officer Name Role Phone Laith Camara MD Primary Care Provider [phone] Encounter Details Date Type Department Care Team (Late st Contact Info) Description 12/20/2023 Telephone Gynecology/Obstetrics [facility] [address] [place] [address] Wade Alexander MD [address] [place] [address] Allergies Active Allergy Reactions Criticality Noted Date Comments Amoxicillin Rash 11/29/2018 Sulfamethoxazole-Trimethoprim Rash 2018 Clindamycin Rash 11/29/2018 documented as of this encounter (statuses as of 12/20/2023) Medications Medication Sig Dispensed Refills Start Date End Date Status 19 29-1 MG Oral Tablet Chewable Take by mouth. 0 Active Promethazine HCl 25 MG Rectal Suppository (Phenergan)Indicatio ns: related nausea, antepartum Administer 1 Suppository into the rectum every 6 hours as needed for Nausea. 20 Each 2 05/27/2023 Active Additional Information Patient not taking.Reported on 07/23/2023 Iron 325 (65 Fe) MG Oral Tablet Take by mouth. 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 affecting management of mother 08/23/2023 Normal 05/27/2023 Previous delivery, antepartum condition or complication 05/27/2023 History of cholestasis during 05/27/20 23 Overview: 2nd Irritable bowel syndrome 06/18/2021 History of hiatal hernia 11/29/2018 Estimated Date of Delivery Comme nts Yes 01/02/2024 Based on last me nstrual period of 03/28/2023 documented as of this encounter (statuses as of 12/20/2023) Resolved Problems Problem Noted Date Diagnosed Date Resolved Date Cholestasis during 03/03/2022 03/26/2022 Elevated LFTs 02/27/2022 03/26/2022 Overview: Component Latest Ref Rng & Units 02/13/2022 02/27/2022 Albumin 3.8 - 5.0 g/dL 3.8 3.4 (L) AST 10 - 35 U/L 114 (H) 61 (H) Alkaline Phosphatase 35 - 130 U/L 536 (H) 701 (H) ALT 10 - 35 U/L 229 (H) 131 (H) Bilirubin, Total <=1.2 mg/dL 0.3 0.4 Bilirubin, Direct 0.0 - 0.3 mg/dL <0.2 0.2 Protein 6.0 - 8.3 g/dL 6.2 6.0 Bile acids 19 on 02/13/22, repeat 02/27/22 Supervision of normal 08/18/2021 03/26/2022 Need for influenza vaccination 08/18/2021 05/27/2023 History of 08/18/2021 022 Subchorionic hematoma, antepartum 08/18/2021 02/27/2022 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 Cierra Nguyen LPN Patient received flu vaccine. 05/25/2019 Marcelle Adamson RN Subchorionic hemorrhage of jadiel rain, antepartum 11/29/2018 04/03/2019 Unknown varicella vaccination status 11/29/2018 06/18/2021 documented as of this encounter (statuses as of 12/20/2023) Immunizations Name Administration Dates Next Due Seasonal Influenza, PF, 6 M & above, IM , (FluLaval or Fluzone) 05/27/2023,08/18/2021,05/25/2019 TDAP (age 10 and older)(Boostrix) 10/13/2023,,05/10/2019 documented as of this encounter Social History Tobacco Use Types Packs/Day Years Used Date Smoking Tobacco: Never Smokeless Tobacco: Never Alcohol Use Standard Drinks/Week Comments No 0 (1 standard drink = 0.6 oz pur e alcohol) AUDIT-C Answer Date Recorded Frequency of Alcohol Consumption Never 11/29/2018 Average Number of Drinks Not on file Frequency of Binge Drinking Not on file 11/18 Hunger Vital Sign Answer Date Recorded Within the past 12 months, y ou worried that your food would run out before you got the money to buy more. Never true 08/06/20 23 Within the past 12 months, t he food you bought just didn't last and you didn't have money to get more. Never true 08/06/2023 [place] Depression Scale Answer Date Recorded [place] Depression Scale Total 9 05/27/2023 The thought of harming myself has occurred to me . Never 05/27/2023 Estimated Date of Delivery Comme nts Yes 01/02/2024 Based on last me nstrual period of 03/28/2023 Sex and Gender Information Value Date Recorded Sex Assigned at Female 01/01/2022 10:29 AM EDT Gender Identity Female 01/01/2022 10:29 AM EDT Sexual Orientation Straight 01/01/2022 10 :29 AM EDT Job Start Date Occupation Industry Not on file Not on file Not on file documented as of this encounter Miscellaneous Notes * Telephone Encounter - Blank Estrada RN - 12/20/2023 9:20 AM EDT Pt is aware and will stop by for this. * Telephone Encounter - Wade Alexander MD - 12/20/2023 9:14 AM EDT She may have blood work and try Benadryl PO and lotion If no help we can Rx Atarax Thanks * Telephone Encounter - Blank Estrada RN - 12/20/2023 8:49 AM EDT Pt started Wednesday night with overall itching. Worse on hands and feet. Kept her up all night. No visible itching. + FM. Denies any vaginal bleeding or leaking. She has tried cortisone cream but no benedryl. Advised to try that but that I would speak with Dr. Hicks and call her back. Pt did have cholestasis with last . Pt can be reached at [phone] documented in this encounter Plan of Treatment Upcoming Encounters Date Type Department Care Team (Late st Contact Info) Description 12/22/2023 4:30 PM EDT [facility] [address] [place] [address] Maggie Irene PA-C [address] [place] [address] 12/27/2023 3:00 PM EDT Office [facility] [address] [place] [address] Sheryl Chowdary MD [address] [place] [address] [place] [address] 01/05/2024 10:30 AM EDT Office [facility] [address] [place] [address] Norberto NewanthGLORIA Gustafson [address] [place] [address] Scheduled Orders Name Type Priority Associated Diagnoses Orde r Schedule COMPREHENSIVE METABOLIC PANEL Lab Timed 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 1 Occurrences starting 12/20/2023 until 12/19/2024 BILE ACIDS, FRACTIONATED AND TOTAL Lab Timed 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 1 Occurrences starting 12/20/2023 until 12/19/2024 Health Maintenance Due Date Last Done Comments Depression Screening 2005 COVID-19 Vaccine ( season) 2023 11/18/2020 HPV/Co-Test 2023 Cervical Cancer Screening 04/17/2025 Pap Smear 04/17/2025 04/17/2022, 11/29/2018 DTaP,Tdap,and Td Vaccines (11 - Td or Tdap) 10/13/2033 10/13/2023, 01/01/2022, 05/10/2019, Additional history exists Hepatitis B Completed 03/16/1994, 12/20, 1993 GARDASIL-HPV IMMUNIZATION SERIES Completed 04/13/2011, 10/14/2007, 06/14/2007 MENINGOCOCCAL (MENACTRA/MENVEO) Completed 04/18/2012, 04/13/2007 Influenza Vaccine (FLU shot) Completed 03/2023, 08/18/2021, 05/25/2019, Additional history exists Pneumococcal Vaccine: Pediatrics (0 to 5 Years) and At-Risk Patients (6 to 64 Years) Aged Out No longer eligible based on patient's age to complete this topic documented as of this encounter Medical Devices Not on filedocumented as of this encounter Visit Diagnoses Diagnosis 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
--- OUTSIDE RECORDS SUMMARY | 2023-12-22 11:00 | External Medical Summary | Summary of Care ---
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 05/25/2019 Marcelel Adamson RN Subchorionic hemorrhage of jadiel rain, [...] money to get more. Never true 08/06/2023 [place] Depression Scale Answer Date Recorded [place] Depression Scale Total 9 05/27/2023 The thought [...] on file documented as of this encounter Plan of Treatment Upcoming Encounters Date Type Department Care Team (Late st Contact Info) Description 12/22/2023 4:30 PM EDT Office Visit Gynecology/Obstetrics [facility] [address] [place] [place] [address] Maggie Irene PA-C [address] [place] [address] 12/27/2023 3:00 PM EDT Office Visit Gynecology/Obstetrics [facility] [address] [place] [address] Sheryl Chowdary MD [address] [place] [address] [place] [address] 01/05/2024 10:30 AM EDT Office Visit Gynecology/Obstetrics [facility] [place] [address] Garima New CRNP [address] [place] [address] Pending Results Name Type Priority Associated Diagnoses Date /Time BILE ACIDS, FRACTIONATED AND TOTAL Lab Timed 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 12/20/2023 11:55 AM EDT Health Maintenance Due Date Last Done Comments [...] Not on filedocumented as of this encounter Procedures Procedure Name Priority Date/Time Associated Diagnosis Comments COMPREHENSIVE METABOLIC PANEL Timed 12/20/2023 11:55 AM EDT 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 documented in this encounter Results * (ABNORMAL) COMPREHENSIVE METABOLIC PANEL (12/20/2023 11:55 AM EDT) BUN 4(L) 6 - 20 mg/dL 12/20/2023 1:48 PM EDT [facility] [place] [facility] Creatinine 0.6 0.5 - 1.0 mg/dL 12/20/2023 1:48 PM EDT [facility] [place] [facility] Estimated Glomerular Filtration Rate >90 >=60 mL/min 12/20/2023 1:48 PM EDT [facility] [place] [facility] Comment:eGFR is calculated b ased on the CKD-EPI 2020 equation Sodium 136 135 - 146 mmol/L 12/20/2023 1:48 PM EDT [facility] [place] [facility] Potassium 4.1 3.5 - 5.1 mmol/L 12/20/2023 1:48 PM EDT [facility] [place] [facility] Chloride 102 98 - 107 mmol/L 12/20/2023 1:48 PM EDT [facility] [place] [facility] CO2 22 22 - 32 mmol/L 12/20/2023 1:48 PM EDT [facility] [place] [facility] Anion Gap 12 7 - 15 mmol/L 12/20/2023 1:48 PM EDT [facility] [place] [facility] Glucose 63(L) 70 - 120 mg/dL 12/20/2023 1:48 PM EDT [facility] [place] [facility] Albumin 3.7(L) 3.8 - 5.0 g/dL 12/20/2023 1:48 PM EDT [facility] [place] [facility] AST 90(H) 10 - 35 U/L 12/20/2023 1:48 PM EDT [facility] [place] [facility] Alkaline Phosphatase 236(H) 35 - 130 U/L 12/20/2023 1:48 PM EDT [facility] [place] [facility] Bilirubin, Total 0.4 <=1.2 mg/dL 12/20/2023 1:48 PM EDT [facility] [place] [facility] Calcium 9.4 8.4 - 10.2 mg/dL 12/20/2023 1:48 PM EDT [facility] [place] [facility] Protein 6.1 6.0 - 8.3 g/dL 12/20/2023 1:48 PM EDT [facility] [place] [facility] ALT 199(H) 10 - 35 U/L 12/20/2023 1:48 PM EDT [facility] [place] [facility] Blood Venous blood specimen / Unknown Venipuncture / Unknown 12/20/2023 11:55 AM EDT 12/20/2023 11:55 AM EDT Wade Gutierrez MD LAB BLOOD [facility] [place] [facility] 132 [place] [address] documented in this encounter Visit Diagnoses Diagnosis 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
--- OUTSIDE RECORDS SUMMARY | 2023-12-22 11:00 | External Medical Summary | Summary of Care ---
Author Name Unknown Organization [facility] Address [address] [place] [address] Phone [phone] Care Team Providers Care Sports Book Server Name Role Phone Laith Camara MD Primary Care Provider [phone] Reason for Visit * Reason Onset Date Comments Advice 12/20/2023 Encounter Details Date Type Department Care Team (Late st Contact Info) Description 12/20/2023 Telephone Clothing Man Obstetrics [facility], [place] [address] [place] [address] Sheryl Suarez, DO [address] [place] [address] Advice Allergies Active Allergy Reactions Criticality Noted Date [...] money to get more. Never true 08/06/2023 [place] Depression Scale Answer Date Recorded [place] Depression Scale Total 9 05/27/2023 The thought [...] encounter Miscellaneous Notes * Telephone Encounter - Sheryl Suarez DO - 12/20/2023 4:09 PM EDT Received message from Dr. Teresita Gutierrez regarding patient. Patient has reported severe itching of hands and feet in the absence of a rash. She has tried benadryl, atarax and hydrocortisone cream without relief. She obtained labwork with AST 99 and ALT 199 without any other etiology to explain the patients symptoms. Bile acids are in process. Of note, patient has a hx of ICP in her prior . There is a high clinical suspicion for ICP at this time. Bile acids are unlikely to result in a meaningful timeframe. Recommend proceeding with delivery at this time for suspected ICP. Case was discussed with Dr. Srinivasan. documented in this encounter Plan of Treatment Upcoming Encounters Date Type Department Care Team (Late st Contact Info) Description 12/22/2023 4:30 PM EDT Office Visit Gynecology/Obstetrics [facility] [address] [place] [address] Maggie Irene PA-C [address] [place] [address] 12/27/2023 3:00 PM EDT Office Visit Gynecology/Obstetrics [facility] [address] [place] [address] Sheryl Chowdary MD [address] [place] [address] [place] [address] 01/05/2024 10:30 AM EDT Office Visit Gynecology/Obstetrics [facility] [address] [place] [address] Garima New CRNP [address] [place] [address] Health Maintenance Due Date Last Done Comments Depression Screening 2005 COVID-19 Vaccine (24 season) 2023 11/18/2020 HPV/Co-Test 2023 Cervical Cancer [...] Not on filedocumented as of this encounter Care Teams Sports Book Server Relationship Specialty Start Date End Date Laith Camara MD [address] [place] [address] PCP - General Family Medicine 10/10/19 documented as of this encounter
--- OUTSIDE RECORDS SUMMARY | 2023-12-22 11:00 | External Medical Summary | Summary of Care ---
Author Name Unknown Organization [facility] Address [address] [facility] [place] [address] Phone [phone] Care Team Providers Care Account Supervisor Name Role Phone Laith Camara MD Primary Care Provider [phone] Reason for Visit * Reason Comments Outpatient Testing Encounter Details Date Type Department Care Team (Late st Contact Info) Description 12/20/2023 10:40 AM EDT Laboratory Laboratory, 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 Never true 08/06/2023 [place] Depression Scale Answer Date Recorded [place] Depression Scale Total 9 05/27/2023 The thought [...] Office Visit Gynecology/Obstetrics [facility] [address] [place] [address] Maggie Irene PA-C [address] [place] [address] 12/27/2023 3:00 PM EDT Office Visit Gynecology/Obstetrics [facility] 132 [place] [address] Sheryl Chowdary MD [address] [place] [address] [place] [address] 01/05/2024 10:30 AM EDT Office Visit Gynecology/Obstetrics [facility] [address] Garima New CRNP [address] [place] [address] Pending Results Name Type Priority Associated Diagnoses [...] ORDERA BLES [facility] [place] [facility] 132 [place] [address] documented in this encounter Visit Diagnoses Diagnosis 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
--- OUTSIDE RECORDS SUMMARY | 2023-12-22 11:00 | External Medical Summary | Summary of Care ---
Author Name Unknown Organization [facility] Address [address] [facility] [place] [address] Phone [phone] Care Team Providers Care Manager Editorial Name Role Phone Laith Camara MD Primary Care Provider [phone] Reason for Visit * Reason Comments Return Visit Encounter Details Date Type Department Care Team (Late st Contact Info) Description 12/17/2023 4:30 PM EDT Office Visit Gynecology/Obstetric s [facility] [address] [place] [address] Maggie Irene PA-C [address] [place] [address] Normal in third trimester*; Previous delivery, antepartum condition or complication; History of cholestasis during ; Marginal insertion of umbilical cord affecting management of mother Allergies Active Allergy Reactions Criticality Noted Date Comments Amoxicillin Rash 11/29/2018 Sulfamethoxazole-Trimethoprim Rash 2018 Clindamycin Rash 11/29/2018 documented as of this encounter (statuses as of 12/17/2023) Medications Medication Sig Dispensed Refills Start Date [...] as of this encounter (statuses as of 12/17/2023) Active Problems Problem Noted Date Diagnosed Date Marginal insertion of umbili jose alberto cord affecting management of mother 08/23/2023 Normal 05/27/2023 Previous delivery, antepartum condition or complication 05/27/2023 History of cholestasis during 05/27/20 Overview: 2nd Irritable bowel syndrome 06/18/2021 History of hiatal hernia 11/29/2018 Estimated Date of Delivery Comme nts Yes 01/02/2024 Based on last me nstrual period of 03/28/2023 documented as of this encounter (statuses as of 12/17/2023) Resolved Problems Problem Noted Date Diagnosed Date [...] as of this encounter (statuses as of 12/17/2023) Immunizations Name Administration Dates Next Due Seasonal [...] money to get more. Never true 08/06/2023 [place] Depression Scale Answer Date Recorded [place] Depression Scale Total 9 05/27/2023 The thought [...] on file documented as of this encounter Last Filed Vital Signs Vital Sign Reading Time Taken Comments Blood Pressure 108/74 12/17/2023 4:28 PM EDT Pulse - - Temperature - - Respiratory Rate - - Oxygen Saturation - - Inhaled Oxygen Concentration - - Weight 81.6 kg (180 lb) 12/17/2023 4:28 PM EDT Height 160 cm (5' 3") 12/17/2023 4:28 PM EDT Body Mass Index 31.89 12/17/2023 4:28 PM EDT documented in this encounter Progress Notes * Maggie Irene PA-C - 12/17/2023 4:36 PM EDT 37w5d Without complaints. Denies contractions, LOF, VB. Baby is moving well and normally. ERCS scheduled 12/29/2023. Labor precautions reviewed. RTC in 1 week Maggie Irene PA-C documented in this encounter Nursing Notes * Taylor Villagran LPN - 12/17/2023 4:29 PM EDT 37w5d Denies concerns Given pre-op wipes per request documented in this encounter Plan of Treatment Upcoming Encounters Date Type Department Care Team (Late st Contact Info) Description 12/22/2023 4:30 PM EDT Office Visit Gynecology/Obstetrics [facility] [address] [place] [address] Maggie Irene PA-C [address] [place] [address] 12/27/2023 3:00 PM EDT Office Visit Gynecology/Obstetrics [facility] [address] [place] [address] Sheryl Chowdary MD [address] [place] [address] 01/05/2024 10:30 AM EDT Office Visit Gynecology/Obstetrics [facility] [address] [place] [address] Backer, GLORIA Drake [address] [place] [address] Health Maintenance Due Date Last Done Comments [...] as of this encounter Visit Diagnoses Diagnosis Normal in third trimester- Primary Previous delivery, antepartum condition or complication History of cholestasis during Marginal insertion of umbilical cord affecting management of mother documented in this encounter Care Teams Manager Editorial Relationship Specialty Start Date End Date Laith Camara MD [address] [facility] [place] [address] PCP - General Family Medicine 10/10/19 documented as of this encounter
--- OUTSIDE RECORDS SUMMARY | 2023-12-22 11:00 | External Medical Summary | Summary of Care ---
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 Never true 08/06/2023 [place] Depression Scale Answer Date Recorded [place] Depression Scale Total 9 05/27/2023 The thought [...] Office Visit Gynecology/Obstetrics [facility] [address] [facility] [place] [address] Maggie Irene PA-C [address] [place] [address] 12/27/2023 3:00 PM EDT Office Visit Gynecology/Obstetrics [facility] 132 [place] [address] Sheryl Chowdary MD [address] [place] [address] [place] [address] 01/05/2024 10:30 AM EDT Office Visit Gynecology/Obstetrics [facility] [address] 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
--- OUTSIDE RECORDS SUMMARY | 2023-12-22 11:00 | External Medical Summary | Summary of Care ---
Author Name Unknown Organization [facility] Address [address] [facility] [address] Phone [phone] Care Team Providers Care Distribution Accounting Clerk Name Role Phone Laith Camara MD Primary Care Provider [phone] Reason for Visit * Reason Onset Date Comments Forms Request 12/10/2023 Encounter Details Date Type Department Care Team (Late st Contact Info) Description 12/10/2023 Telephone [facility]cology[facility] [address] [place] [address] Maggie Irene PA-C [address] [place] [address] Forms Request Allergies Active Allergy Reactions Criticality Noted Date Comments Amoxicillin Rash 11/29/2018 Sulfamethoxazole-Trimethoprim Rash 2018 Clindamycin Rash 11/29/2018 documented as of this encounter (statuses as of 12/15/2023) Medications Medication Sig Dispensed Refills Start Date [...] as of this encounter (statuses as of 12/15/2023) Active Problems Problem Noted Date Diagnosed Date [...] as of this encounter (statuses as of 12/15/2023) Resolved Problems Problem Noted Date Diagnosed Date [...] as of this encounter (statuses as of 12/15/2023) Immunizations Name Administration Dates Next Due Seasonal [...] Average Number of Drinks Not on file 019 Frequency of Binge Drinking Not on file [...] money to get more. Never true 08/06/2023 [place] Depression Scale Answer Date Recorded [place] Depression Scale Total 9 05/27/2023 The thought [...] encounter Miscellaneous Notes * Telephone Encounter - Va Villagran LPN - 12/15/2023 2:22 PM EDT FMLA signed and original in triage for patient pick-up. Copy in scan bin. * Telephone Encounter - Maggie Irene PA-C - 12/15/2023 1:35 PM EDT FMLA signed, given back to Va. * Telephone Encounter - Va Villagran LPN - 12/14/2023 10:24 AM EDT Forms on Maggie's desk for signature. * Telephone Encounter - Va Villagran LPN - 12/10/2023 4:16 PM EDT FMLA forms received 12/10/2023 Would pt like forms faxed no, will fruit picker at next visit Does pt need notified when done? no Patient Phone Numbers Forms on va's desk. documented in this encounter Plan of Treatment Upcoming Encounters Date Type Department Care Team (Late st Contact Info) Description 12/17/2023 4:30 PM EDT Office Visit [facility] [address] [place] [address] Maggie Irene PA-C [address] [place] [address] 12/22/2023 4:30 PM EDT [facility] [address] [place] [address] Maggie Irene PA-C [address] [place] [address] 12/27/2023 3:00 PM EDT Office Visit Gynecology[facility] [address] [facility] [place] [address] Sheryl Chowdary MD [address] [place] [address] [place] [address] 01/05/2024 10:30 AM EDT Office Visit Gynecology/Ob[facility] [address] [facility] [place] [address] Garima New CRNP [address] [place] [address] Health Maintenance Due Date Last Done Comments [...] filedocumented as of this encounter Care Teams Distribution Accounting Clerk Relationship Specialty Start Date End Date Laith Camara MD [address] [place] [address] PCP - General Family Medicine 10/10/19 documented as of this encounter
--- OUTSIDE RECORDS SUMMARY | 2023-12-22 11:00 | External Medical Summary | Summary of Care ---
Author Name Unknown Organization [facility] Address [address] [facility] [place] [address] Phone [phone] Care Team Providers Care Counter Control Operator Name Role Phone Laith Camara MD Primary Care Provider [phone] Reason for Visit * Reason Comments Return Visit Encounter Details Date Type Department Care Team (Late st Contact Info) Description 12/21/2023 2:45 PM EDT Office Visit Gynecology/Obstetric s [facility] 132 [facility] [place] [address] Sharonda Browne MD [address] [facility] [place] [address] 38 weeks gestation of *; Previous delivery, antepartum condition or complication; History of cholestasis during ; Marginal insertion of umbilical cord affecting management of mother Allergies Active Allergy Reactions Criticality Noted Date Comments Amoxicillin Rash 11/29/2018 Sulfamethoxazole-Trimethoprim Rash 2018 Clindamycin Rash 11/29/2018 documented as of this encounter (statuses as of 12/21/2023) Medications Medication Sig Dispensed Refills Start Date End Date Status 19 29-1 MG Oral Tablet Chewable Take by mouth. 0 Active Promethazine HCl 25 MG Rectal Suppository (Phenergan)Indicati ons: related nausea, antepartum Administer 1 Suppository into the rectum every 6 hours as needed for Nausea. 20 Each 2 05/27/2023 Active Additional Information Patient not taking.Reported on 07/23/2023 Iron 325 (65 Fe) MG Oral Tablet Take by mouth. 0 Active Ursodiol 300 MG Oral Capsule (Actigall) Take 1 Capsule by mouth in the morning and 1 Capsule before bedtime. 20 Capsule 1 12/21/2023 Active documented as of this encounter (statuses as of 12/21/2023) Active Problems Problem Noted Date Diagnosed Date [...] as of this encounter (statuses as of 12/21/2023) Resolved Problems Problem Noted Date Diagnosed Date [...] influenza vaccination 08/18/2021 05/27/2023 History of 08/18/2021 07 022 Subchorionic hematoma, antepartum 08/18/2021 02/27/2022 Placenta [...] as of this encounter (statuses as of 12/21/2023) Immunizations Name Administration Dates Next Due Seasonal [...] money to get more. Never true 08/06/2023 [place] Depression Scale Answer Date Recorded [place] Depression Scale Total 9 05/27/2023 The thought [...] Sign Reading Time Taken Comments Blood Pressure 120/72 12/21/2023 2:19 PM EDT Pulse - - Temperature - - Respiratory Rate - - Oxygen Saturation - - Inhaled Oxygen Concentration - - Weight 83.5 kg (184 lb) 12/21/2023 2:19 PM EDT Height 160 cm (5' 3") 12/21/2023 2:19 PM EDT Body Mass Index 32.59 12/21/2023 2:19 PM EDT documented in this encounter Progress Notes * Sharonda Browne MD - 12/21/2023 2:41 PM EDT Araceli Ritter is a 28 year old female here for her routine OB appointment at 38w2d. Patient complains of body itching that started about a week ago. Her Estimated Date of Delivery: 01/02/24 REVIEW OF SYSTEMS: She affirms movement. Denies vaginal bleeding, LOF, contractions, N/V, headaches [place] Depression Scale: No data recorded [place] suicide question and score: Score of 3 = Yes, quite often. Score of 2 = Sometimes. Score of 1 = Hardly ever No data recorded ASSESSMENT assessment with Non-stress Test completed on 12/21/2023 at 38 weeks 2 days gestation for indication of cholestasis heart baseline: 145 bpm Variability: Moderate Decelerations: absent Accelerations: present Contractions: None NST start time: 1416 hrs NST stop time: 1437 hrs NST strip reviewed, interpreted, and approved by OB provider, Dr. Browne. NST strip stored in clinic storage file PHYSICAL EXAM: Filed Vitals: 12/21/23 1419 Weight: 83.5 kg (184 lb) Height: 1.6 m (5' 3") +FHT 145 bpm Fundal height 37 cm ASSESSMENT/PLAN: (O34.219) Previous delivery, antepartum condition or complication Plan: Patient is scheduled for repeat section at [facility] tomorrow. (Z87.59, Z87.19) History of cholestasis during Plan: NST was reactive. Patient was encouraged to picker and sorter load and unload Urosdiol for symptomatic relief. (O43.199) Marginal insertion of umbilical cord affecting management of mother (Z3A.38) 38 weeks gestation of (primary encounter diagnosis) Plan: - labor precautions and kick counts reviewed - RTO in 1 week Sharonda Browne MD documented in this encounter Plan of Treatment Upcoming Encounters Date Type Department Care Team (Late st Contact Info) Description 12/30/2023 2:00 PM EDT Office Visit Gynecology/Obstetrics [facility] 132 [facility] [place] [address] Viviane Malik CNM [address] [facility] [place] [address] Health Maintenance Due Date Last Done Comments [...] as of this encounter Visit Diagnoses Diagnosis 38 weeks gestation of - Primary state, incidental Previous delivery, antepartum condition or complication History of cholestasis during Marginal insertion of umbilical cord affecting management of mother documented in this encounter Care Teams Counter Control Operator Relationship Specialty Start Date End Date Laith Camara MD [address] [facility] [place] [address] PCP - General Family Medicine 10/10/19 documented as of this encounter
--- OUTSIDE RECORDS SUMMARY | 2023-12-22 11:00 | External Medical Summary | Summary of Care ---
Author Name Unknown Organization [facility] Address [address] [facility] [place] [address] Phone [phone] Care Team Providers Care Plumbing Manager Name Role Phone Laith Camara MD Primary Care Provider [phone] Encounter Details Date Type Department Care Team (Late st Contact Info) Description 12/20/2023 Telephone Gynecology/Obstetrics [facility] [address] [place] [address] Wade Alexander MD [address] [place] [address] Allergies Active Allergy Reactions Criticality Noted Date [...] money to get more. Never true 08/06/2023 [place] Depression Scale Answer Date Recorded [place] Depression Scale Total 9 05/27/2023 The thought [...] last . Pt can be reached at [phone] documented in this encounter Plan of Treatment Upcoming Encounters Date Type Department Care Team (Late st Contact Info) Description 12/22/2023 4:30 PM EDT [facility] [address] [place] [address] Maggie Irene PA-C [address] [place] [address] 12/27/2023 3:00 PM EDT Office [facility] [address] [place] [address] Sheryl Chowdary MD [address] [place] [address] [place] [address] 01/05/2024 10:30 AM EDT Office [facility] [address] [place] [address] Norberto NewanthGLORIA Gustafson [address] [place] [address] Scheduled Orders Name Type Priority Associated Diagnoses [...] Primary documented in this encounter Care Teams Plumbing Manager Relationship Specialty Start Date End Date Laith Camara MD [address] [place] [address] PCP - General Family Medicine 10/10/19 documented as of this encounter
--- OUTSIDE RECORDS SUMMARY | 2023-12-22 11:00 | External Medical Summary ---
Author Name Unknown Address Unknown Organization [facility] [place] [address] [place] [address] Laboratory Report Ordering Provider Test Date Status TREMAINE MOLINA 12/20/2023 11:55:24 Final Observation Date Value Abnormality Reference (Units ) Status BUN 12/20/2023 11:55:24 4 Below low normal 6-20 (mg/dL) Final Creatinine 12/20/2023 11:55:24 0.6 0.5-1.0 (mg/dL) Final Glomerular filtration rate/1.73 sq M.predicted [Volume Rate/Area] in Serum, Plasma or Blood by Creatinine-based formula (CKD-EPI) 12/20/2023 11:55:24 >90 >=60 (mL/min) Final eGFR is calculated based on the CKD-EPI 2020 equation Sodium 12/20/2023 11:55:24 136 135-146 (m mol/L) Final Potassium 12/20/2023 11:55:24 4.1 3.5-5.1 (m mol/L) Final Cl 12/20/2023 11:55:24 102 98-107 (mm ol/L) Final CO2 12/20/2023 11:55:24 22 22-32 (mmo l/L) Final Anion gap 12/20/2023 11:55:24 12 7-15 (mmol /L) Final Glucose 12/20/2023 11:55:24 63 Below low normal 70- 120 (mg/dL) Final Albumin 12/20/2023 11:55:24 3.7 Below low normal 3.8 -5.0 (g/dL) Final AST (Aspartate aminotransferase) 12/20/2023 11:55:24 90 Above high normal 10-35 (U/L) Final Alk Phos 12/20/2023 11:55:24 236 Above high normal 35 -130 (U/L) Final Bilirubin, Total 12/20/2023 11:55:24 0.4 <=1 .2 (mg/dL) Final Calcium 12/20/2023 11:55:24 9.4 8.4-10.2 ( mg/dL) Final Protein 12/20/2023 11:55:24 6.1 6.0-8.3 (g /dL) Final ALT (Alanine aminotransferase) 12/20/2023 11:55:24 199 Above high normal 10-35 (U/L) Final [facility] [address] [facility] [address] [facility] [place] [address]
--- OUTSIDE RECORDS SUMMARY | 2023-12-22 11:01 | External Medical Summary | Summary of Care ---
Author Name Unknown Organization [facility] Address [address] [facility] [address] Phone [phone] Care Team Providers Care Weaver Tire Cord Name Role Phone Laith Camara MD Primary Care Provider [phone] Reason for Visit * Reason Comments Return Visit Encounter Details Date Type Department Care Team (Late st Contact Info) Description 11/16/2023 3:00 PM EST Office Visit [facility] [address] [place] [address] Gama Vizcaino MD [address] [place] [address] Normal in third trimester*; Previous delivery, antepartum condition or complication; History of cholestasis during ; Marginal insertion of umbilical cord affecting management of mother Allergies Active Allergy Reactions Criticality Noted Date Comments Amoxicillin Rash 11/29/2018 Sulfamethoxazole-Trimethoprim Rash 2018 Clindamycin Rash 11/29/2018 documented as of this encounter (statuses as of 11/16/2023) Medications Medication Sig Dispensed Refills Start Date [...] as of this encounter (statuses as of 11/16/2023) Active Problems Problem Noted Date Diagnosed Date [...] as of this encounter (statuses as of 11/16/2023) Resolved Problems Problem Noted Date Diagnosed Date [...] as of this encounter (statuses as of 11/16/2023) Immunizations Name Administration Dates Next Due Seasonal [...] money to get more. Never true 08/06/2023 [place] Depression Scale Answer Date Recorded [place] Depression Scale Total 9 05/27/2023 The thought [...] Sign Reading Time Taken Comments Blood Pressure 118/70 11/16/2023 3:03 PM EST Pulse - - Temperature - - Respiratory Rate - - Oxygen Saturation - - Inhaled Oxygen Concentration - - Weight 79.8 kg (176 lb) 11/16/2023 3:03 PM EST Height 160 cm (5' 3") 11/16/2023 3:03 PM EST Body Mass Index 31.18 11/16/2023 3:03 PM EST documented in this encounter Progress Notes * Gama Vizcaino MD - 11/16/2023 3:25 PM EST Pt doing well No complaint RTC 2 weeks * Cierra Nguyen LPN - 11/16/2023 3:03 PM EST 33w2d Needs growth US documented in this encounter Plan of Treatment Upcoming Encounters Date Type Department Care Team (Late st Contact Info) Description 12/03/2023 3:00 PM EDT Imaging Radiology [facility] [address] [place] [address] 12/03/2023 4:30 PM EDT [facility] [address] [place] [address] Maggie Irene PA-C [address] [place] [address] 12/10/2023 4:30 PM EDT Office [facility] [address] [place] [address] Maggie Irene PA-C [address] [place] [address] 12/17/2023 4:30 PM EDT Office Visit Gynecology/Obstetrics [facility] [address] [place] [address] Maggie Irene PA-C [address] [place] [address] 12/22/2023 4:30 PM EDT Office Visit Gynecology/Obstetrics [facility] [address] [facility] [place] [address] Maggie Irene PA-C [address] [place] [address] 12/27/2023 3:00 PM EDT Office Visit Gynecology/Obstetrics [facility] [address] [facility] [place] [address] Sheryl Chowdary MD [address] [place], [place] [address] [address] Scheduled Orders Name Type Priority Associated Diagnoses Orde r Schedule US PREG FOLLOW-UP EACH FETUS Medical Imaging Routine Marginal insertion of umbilical cord affecting management of mother Expected: 11/16/2023 (Approximate), Expires: 12/14/2024 Health Maintenance Due Date Last Done Comments [...] mother documented in this encounter Care Teams Weaver Tire Cord Relationship Specialty Start Date End Date Laith Camara MD [address] [place] [address] PCP - General Family Medicine 10/10/19 documented as of this encounter
--- OUTSIDE RECORDS SUMMARY | 2023-12-22 11:01 | External Medical Summary ---
Author Name Unknown Address Unknown Organization [facility] [facility] [address] [place] [address] Laboratory Report Ordering Provider Test Date Status JIM CHEEMA 10/19/2023 10:16:51 Final Observation Date Value Abnormality Reference (Units ) Status Glucose, 2-hr post glucose challenge 10/19/2023 10:16:51 127 70-154 (mg/dL) Final Performing Location LABORATORY [facility] [place] [address] - [address] [place] [address]
--- OUTSIDE RECORDS SUMMARY | 2023-12-22 11:01 | External Medical Summary | Summary of Care ---
Author Name Unknown Organization [facility] Address [address] [facility] [address] Phone [phone] Care Team Providers Care Psychiatric Social Worker Name Role Phone Laith Camara MD Primary Care Provider [phone] Reason for Visit * Reason Onset Date Comments Surgery 11/17/2023 Encounter Details Date Type Department Care Team (Late st Contact Info) Description 11/17/2023 Telephone Gynecology/Obstetrics [facility] [address] [place] [address] Erasto Day MD [address] [place] [address] Surgery Allergies Active Allergy Reactions Criticality Noted Date Comments Amoxicillin Rash 11/29/2018 Sulfamethoxazole-Trimethoprim Rash 2018 Clindamycin Rash 11/29/2018 documented as of this encounter (statuses as of 11/29/2023) Medications Medication Sig Dispensed Refills Start Date [...] as of this encounter (statuses as of 11/29/2023) Active Problems Problem Noted Date Diagnosed Date [...] as of this encounter (statuses as of 11/29/2023) Resolved Problems Problem Noted Date Diagnosed Date [...] as of this encounter (statuses as of 11/29/2023) Immunizations Name Administration Dates Next Due Seasonal [...] money to get more. Never true 08/06/2023 [place] Depression Scale Answer Date Recorded [place] Depression Scale Total 9 05/27/2023 The thought [...] encounter Miscellaneous Notes * Telephone Encounter - Ana Hale OSA - 11/29/2023 3:52 PM EDT [facility] Pt aware. * Telephone Encounter - Ana Hale OSA - 11/17/2023 1:35 PM EST LM for pt to call and schedule c/section. documented in this encounter Plan of Treatment Upcoming Encounters Date Type Department Care Team (Late st Contact Info) Description 12/03/2023 3:00 PM EDT Imaging Radiology [facility] [address] [place] [address] 12/03/2023 4:30 PM EDT Office Visit Gynecology/Obstetrics [facility] [address] [place] [address] Maggie Irene PA-C [address] [place] [address] 12/10/2023 4:30 PM EDT Office Visit Gynecology/Obstetrics [facility] [address] [place] [address] Maggie Irene PA-C [address] [place] [address] 12/17/2023 4:30 PM EDT Office Visit Gynecology/Obstetrics [facility] [address] [place] [address] Maggie Irene PA-C [address] [place] [address] 12/22/2023 4:30 PM EDT Office Visit Gynecology/Obstetrics [facility] [address] [place] [address] Maggie Irene PA-C [address] [place] [address] 12/27/2023 3:00 PM EDT Office Visit Gynecology/Obstetrics [facility] [address] [place] [address] Sheryl Chowdary MD [address] [place] [address] [place] [address] 01/05/2024 10:30 AM EDT Office Visit Gynecology/Obstetrics [facility] [address] [facility] [address] BackerGarima CRNP [address] [facility] [address] Health Maintenance Due Date Last Done Comments [...] filedocumented as of this encounter Care Teams Psychiatric Social Worker Relationship Specialty Start Date End Date Laith Camara MD [address] [place] [address] PCP - General Family Medicine 10/10/19 documented as of this encounter
--- OUTSIDE RECORDS SUMMARY | 2023-12-22 11:01 | External Medical Summary | Summary of Care ---
Author Name Unknown Organization [facility] Address [address] [facility] [place] [address] Phone [phone] Care Team Providers Care Group Home Worker Name Role Phone Laith Camara MD Primary Care Provider [phone] Reason for Visit * Reason Comments Return Visit Encounter Details Date Type Department Care Team (Late st Contact Info) Description 12/03/2023 4:30 PM EDT Office Visit Gynecology/Obstetric s [facility] [address] [place] [address] Maggie Irene PA-C [address] [place] [address] Normal in third trimester*; Previous delivery, antepartum condition or complication; History of cholestasis during ; Marginal insertion of umbilical cord affecting management of mother Allergies Active Allergy Reactions Criticality Noted Date Comments Amoxicillin Rash 11/29/2018 Sulfamethoxazole-Trimethoprim Rash 2018 Clindamycin Rash 11/29/2018 documented as of this encounter (statuses as of 12/03/2023) Medications Medication Sig Dispensed Refills Start Date [...] as of this encounter (statuses as of 12/03/2023) Active Problems Problem Noted Date Diagnosed Date [...] as of this encounter (statuses as of 12/03/2023) Resolved Problems Problem Noted Date Diagnosed Date [...] as of this encounter (statuses as of 12/03/2023) Immunizations Name Administration Dates Next Due Seasonal [...] money to get more. Never true 08/06/2023 [place] Depression Scale Answer Date Recorded [place] Depression Scale Total 9 05/27/2023 The thought [...] Sign Reading Time Taken Comments Blood Pressure 112/68 12/03/2023 3:39 PM EDT Pulse - - Temperature - - Respiratory Rate - - Oxygen Saturation - - Inhaled Oxygen Concentration - - Weight 81.2 kg (179 lb) 12/03/2023 3:39 PM EDT Height - - Body Mass Index 31.71 11/16/2023 3:03 PM EST documented in this encounter Progress Notes * Maggie Irene PA-C - 12/03/2023 4:10 PM EDT 35w5d U/S for growth scheduled today, prelim read: LINDA 18.3 Wt 2879gm - 57%. Planning repeat C/S given history x 2. Scheduled. Not sure if family status complete. Denies VB, LOF, contractions. Pos fm. Reviewed GBS next visit. RTC in 1 week Maggie Irene PA-C documented in this encounter Nursing Notes * Lorna Almanza LPN - 12/03/2023 3:31 PM EDT Growth today 36w 2d, LINDA 18.3 Wt 2879gm - 57% Pt is currently 35w5d with an Estimated Date of Delivery: 01/02/24 - documented in this encounter Plan of Treatment Upcoming Encounters Date Type Department Care Team (Late st Contact Info) Description 12/10/2023 4:30 PM EDT Office Visit Gynecology/Obstetrics [facility] [address] [place] [address] Maggie Irene PA-C [address] [place] [address] 12/17/2023 4:30 PM EDT Office Visit Gynecology/Obstetrics [facility] [address] [place] [address] Maggie Irene PA-C [address] [place] [address] 12/22/2023 4:30 PM EDT Office Visit Gynecology/Obstetrics [facility] [address] [facility] [place] [address] Maggie Irene PA-C [address] [place] [address] 12/27/2023 3:00 PM EDT Office Visit Gynecology/Obstetrics [facility] [address] [facility] [place] [address] Sheryl Chowdary MD [address] [place] [address] [place] [address] 01/05/2024 10:30 AM EDT Office Visit Gynecology/Obstetrics [facility] [address] [facility] [place] [address] Garima New CRNP [address] [place] [address] Health Maintenance Due Date Last Done Comments [...] mother documented in this encounter Care Teams Group Home Worker Relationship Specialty Start Date End Date Laith Camara MD [address] [place] [address] PCP - General Family Medicine 10/10/19 documented as of this encounter
--- OUTSIDE RECORDS SUMMARY | 2023-12-22 11:01 | External Medical Summary ---
Author Name Unknown Address Unknown Organization [id number]:LABORATORY [facility] [place] - [facility] [address] [place] [address] Laboratory Report Ordering Provider Test Date Status AGNES WOODS 12/10/2023 16:42:25 Final Observation Date Value Abnormality Reference (Units ) Status Streptococcus agalactiae DNA [Presence] in Specimen by DERIAN with probe detection 12/10/2023 16:42:25 Negative Negative Final No Group B Streptococcus det ected by culture-enhanced PCR (amplified probe).
The collection of vaginal/rectal swab specimen combinations (FDA approved specimen type) is optimal for the detection of Group B Streptococcus. Single source collection (vaginal only or rectal only) or alternate specimen sources may lead to false negative results. Performing Location LABORATORY [facility] [place] - [address] [place] [address]
--- OUTSIDE RECORDS SUMMARY | 2023-12-22 11:01 | External Medical Summary | Summary of Care ---
Author Name Unknown Organization [facility] Address [address] [facility] [facility] [address] [address] Phone [phone] Care Team Providers Care Freelance Patternmaker Name Role Phone Laith Camara MD Primary Care Provider [phone] Reason for Visit * Reason Comments Outpatient Testing Encounter Details Date Type Department Care Team (Late st Contact Info) Description 10/19/2023 8:00 AM EST Laboratory Laboratory, [facility] [address] [place] [id number] [facility] [address] [place] [address] Abnormal glucose tolerance in mother complicating Allergies Active Allergy Reactions Criticality Noted Date Comments Amoxicillin Rash 11/29/2018 Sulfamethoxazole-Trimethoprim Rash 2018 Clindamycin Rash 11/29/2018 documented as of this encounter (statuses as of 10/19/2023) Medications Medication Sig Dispensed Refills Start Date End Date Status 19 29-1 MG Oral Tablet Chewable Take by mouth. 0 Active Promethazine HCl 25 MG Rectal Suppository (Phenergan)Indicatio ns: related nausea, antepartum Administer 1 Suppository into the rectum every 6 hours as needed for Nausea. 20 Each 2 05/27/2023 Active Additional Information Patient not taking.Reported on 07/23/2023 documented as of this encounter (statuses as of 10/19/2023) Active Problems Problem Noted Date Diagnosed Date [...] as of this encounter (statuses as of 10/19/2023) Resolved Problems Problem Noted Date Diagnosed Date [...] as of this encounter (statuses as of 10/19/2023) Immunizations Name Administration Dates Next Due Seasonal [...] money to get more. Never true 08/06/2023 Ledbetter Depression Scale Answer Date Recorded Ledbetter Depression Scale Total 9 05/27/2023 The thought [...] Care Team (Late st Contact Info) Description 11/02/2023 4:15 PM EST Office Visit [facility] [address] [place] [address] Gama Vizcaino MD [address] [place] [address] 11/16/2023 3:00 PM EST Office Visit Gynecology/Ob[facility] [address] [place] [address] Gama Vizcaino MD [address] [place] [address] 12/03/2023 4:30 PM EDT Office Visit Gynecology[facility] [address] [place] [address] Maggie Irene PA-C [address] [place] [address] 12/10/2023 4:30 PM EDT Office Visit Gynecology[facility]Ob[facility] [address] [place] [address] Maggie Irene PA-C [address] [place] [address] 12/17/2023 4:30 PM EDT Office Visit Gynecology[facility]Ob[facility] [address] [place] [address] Maggie Irene PA-C [address] [place] [address] 12/22/2023 4:30 PM EDT Office Visit Gynecology[facility] [address] [place] [address] Maggie Irene PA-C [address] [place] [address] 12/27/2023 3:00 PM EDT Office Visit Gynecology[facility] [address] [place] [address] Sheryl Chowdary MD [address] [place] [address] [place] [address] Pending Results Name Type Priority Associated Diagnoses Date /Time GESTATIONAL GLUCOSE TOLERANCE, 3 HOUR Lab Routine Abnormal glucose tolerance in mother complicating 10/19/2023 8:08 AM EST 100-G GESTATIONAL GLUCOSE, 3 HOUR Lab Routine Abnormal glucose tolerance in mother complicating 10/19/2023 11:21 AM EST Health Maintenance Due Date Last Done Comments [...] Procedure Name Priority Date/Time Associated Diagnosis Comments 100-G GESTATIONAL GLUCOSE, 2 HOUR Routine 10/19/2023 10:16 AM EST Abnormal glucose tolerance in mother complicating 100-G GESTATIONAL GLUCOSE, 1 HOUR Routine 10/19/2023 9:13 AM EST Abnormal glucose tolerance in mother complicating 100-G GESTATIONAL GLUCOSE, FASTING Routine 10/19/2023 8:08 AM EST Abnormal glucose tolerance in mother complicating documented in this encounter Results * 100-G GESTATIONAL GLUCOSE, 2 HOUR (10/19/2023 10:16 AM EST) 100-g Gestational Glucose, 2 Hour 127 70 - 154 mg/dL 10/19/2023 11:31 AM EST LABORATORY [place] [facility]-10 Blood Venous blood specimen / Unknown Venipuncture / Unknown 10/19/2023 10:16 AM EST 10/19/2023 10:16 AM EST Alesia CASTRO LAB BLOOD ORDERABLES LABORATORY [place] [facility] [address] * 100-G GESTATIONAL GLUCOSE, 1 HOUR (10/19/2023 9:13 AM EST) 100-g Gestational Glucose, 1 Hour 151 70 - 179 mg/dL 10/19/2023 10:00 AM EST LAB[facility]ATORY [place] [facility] Blood Venous blood specimen / Unknown Venipuncture / Unknown 10/19/2023 9:13 AM EST 10/19/2023 9:13 AM EST Alesia CASTRO LAB BLOOD ORDERABLES LAB[facility]AT[facility] [place] [facility] [place] [address] * 100-G GESTATIONAL GLUCOSE, FASTING (10/19/2023 8:08 AM EST) 100-g Gestational Glucose, Fasting 83 70 - 94 mg/dL 10/19/2023 9:35 AM EST LAB[facility]ATORY [place] [facility]10 Blood Venous blood specimen / Unknown Venipuncture / Unknown 10/19/2023 8:08 AM EST 10/19/2023 8:08 AM EST Narrative LAB[facility]ATORY [place] [facility] - 10/19/2023 9:35 AM EST Based on ACOG guideline, gestational diabetes mellitus is diagnosed when any of the following is met: Fasting is greater than or equal to 95 mg/dL 1 hour is greater than or equal to 180 mg/dL 2 hour is greater than or equal to 155 mg/dL 3 hour is greater than or equal to 140 mg/dL Alesia CASTRO LAB BLOOD ORDERABLES [facility]ORY [facility] [place] [facility] [facility] [place] [address] documented in this encounter Visit Diagnoses Diagnosis Abnormal glucose tolerance in mother complicating Abnormal maternal glucose tolerance, complicating , childbirth, or the puerperium, unspecified as to episode of care documented in this encounter Care Teams Freelance Patternmaker Relationship Specialty Start Date End Date Laith Camara MD [address] [place] [address] PCP - General Family Medicine 10/10/19 documented as of this encounter
--- OUTSIDE RECORDS SUMMARY | 2023-12-22 11:01 | External Medical Summary ---
Author Name Unknown Address Unknown Organization K0G:LABORATORY [facility] [[email or web address]] [place] [address] - [address] [place] [address] Laboratory Report Ordering Provider Test Date Status JIM CHEEMA 10/19/2023 11:21:32 Final Observation Date Value Abnormality Reference (Units ) Status Glucose [Mass/volume] in Serum or Plasma --3 hours post dose glucose 10/19/2023 11:21:32 116 70-139 (mg/dL) Final Performing Location LABORATORY [facility] [[email or web address]] [place] [facility] 0 - [address] [place] [address]
--- OUTSIDE RECORDS SUMMARY | 2023-12-22 11:01 | External Medical Summary | Summary of Care ---
Author Name Unknown Organization [facility] Address [address] [facility] [address] Phone [phone] Care Team Providers Care Purchasing And Claims Supervisor Name Role Phone Laith Camara MD Primary Care Provider [phone] Reason for Visit * Reason Onset Date Comments Forms Request 12/10/2023 Encounter Details Date Type Department Care Team (Late st Contact Info) Description 12/10/2023 Telephone Gynecology/Obstetrics [facility] [address] [place] [address] Maggie Irene PA-C [address] [place] [address] Forms Request Allergies Active Allergy Reactions Criticality Noted Date Comments Amoxicillin Rash 11/29/2018 Sulfamethoxazole-Trimethoprim Rash 2018 Clindamycin Rash 11/29/2018 documented as of this encounter (statuses as of 12/14/2023) Medications Medication Sig Dispensed Refills Start Date [...] as of this encounter (statuses as of 12/14/2023) Active Problems Problem Noted Date Diagnosed Date [...] as of this encounter (statuses as of 12/14/2023) Resolved Problems Problem Noted Date Diagnosed Date [...] as of this encounter (statuses as of 12/14/2023) Immunizations Name Administration Dates Next Due Seasonal [...] money to get more. Never true 08/06/2023 Wellington Depression Scale Answer Date Recorded Wellington Depression Scale Total 9 05/27/2023 The thought [...] Would pt like forms faxed no, will pickle solution maker at next visit Does pt need notified when done? no Patient Phone Numbers Forms on va's desk. documented in this encounter Plan of Treatment Upcoming Encounters Date Type Department Care Team (Late st Contact Info) Description 12/17/2023 4:30 PM EDT Office Visit [facility] [address] [place] [address] Maggie Irene PA-C [address] [place] [address] 12/22/2023 4:30 PM EDT Office Visit [facility]cology[facility] [address] [place] [address] Maggie Irene PA-C [address] [place] [address] 12/27/2023 3:00 PM EDT Office Visit Gynecology/Ob[facility]etrics [facility] [address] [place] [address] Sheryl Chowdary MD [address] [place] [address] [place] [address] 01/05/2024 10:30 AM EDT Office Visit Gynecology/Obstetrics [facility] [address] [place] [address] Garima New CRNP [address] [place] [address] Health Maintenance Due Date Last Done Comments Depression Screening 2005 COVID-19 Vaccine (2022- season) 2023 11/18/2020 HPV/Co-Test 2023 Cervical Cancer [...] filedocumented as of this encounter Care Teams Purchasing And Claims Supervisor Relationship Specialty Start Date End Date Laith Camara MD [address] [place] [address] PCP - General Family Medicine 10/10/19 documented as of this encounter
--- OUTSIDE RECORDS SUMMARY | 2023-12-22 11:01 | External Medical Summary | Summary of Care ---
Author Name Unknown Organization [facility] Address [address] [facility] [place] [address] Phone [phone] Care Team Providers Care Editor City Name Role Phone Laith Camara MD Primary Care Provider [phone] Reason for Visit * Reason Comments Return Visit Encounter Details Date Type Department Care Team (Late st Contact Info) Description 12/10/2023 4:30 PM EDT Office Visit Gynecology/Obstetric s [facility] [address] [place] [address] Maggie Irene PA-C [address] [place] [address] Normal in third trimester*; Previous delivery, antepartum condition or complication; History of cholestasis during ; Marginal insertion of umbilical cord affecting management of mother Allergies Active Allergy Reactions Criticality Noted Date Comments Amoxicillin Rash 11/29/2018 Sulfamethoxazole-Trimethoprim Rash 2018 Clindamycin Rash 11/29/2018 documented as of this encounter (statuses as of 12/10/2023) Medications Medication Sig Dispensed Refills Start Date [...] as of this encounter (statuses as of 12/10/2023) Active Problems Problem Noted Date Diagnosed Date [...] as of this encounter (statuses as of 12/10/2023) Resolved Problems Problem Noted Date Diagnosed Date [...] as of this encounter (statuses as of 12/10/2023) Immunizations Name Administration Dates Next Due Seasonal [...] money to get more. Never true 08/06/2023 Gobler Depression Scale Answer Date Recorded Gobler Depression Scale Total 9 05/27/2023 The thought [...] Sign Reading Time Taken Comments Blood Pressure 112/74 12/10/2023 4:13 PM EDT Pulse - - Temperature - - Respiratory Rate - - Oxygen Saturation - - Inhaled Oxygen Concentration - - Weight 81.6 kg (180 lb) 12/10/2023 4:13 PM EDT Height 160 cm (5' 3") 12/10/2023 4:13 PM EDT Body Mass Index 31.89 12/10/2023 4:13 PM EDT documented in this encounter Progress Notes * Maggie Irene PA-C - 12/10/2023 4:34 PM EDT 36w5d Having some increased groin pain, otherwise doing good. Denies contractions, VB, LOF. Baby is active. Due for GBS, collected. FHT 160's, concern for tachycardia. NST in follow up -- cat 1 ASSESSMENT assessment with Non-stress Test completed on 12/10/2023 at 36.5 weeks gestation for indicationof tachycardia. heart baseline: 145 bpm Variability: Moderate Decelerations: absent Accelerations: present Contractions: None NST start time: 16:30 NST stop time: 17:15 NST strip reviewed, interpreted, and approved by OB provider, Maggie Irene PA-C. NST strip stored in clinic storage file Labor precautions RTC in 1 week Maggie Irene PA-C documented in this encounter Nursing Notes * Taylor iVllagran LPN - 12/10/2023 4:17 PM EDT 36w5d Groin discomfort Gbs today documented in this encounter Plan of Treatment Upcoming Encounters Date Type Department Care Team (Late st Contact Info) Description 12/17/2023 4:30 PM EDT Office Visit Gynecology/Obstetrics [facility] [address] [place] [address] Maggie Irene PA-C [address] [place] [address] 12/22/2023 4:30 PM EDT Office Visit Gynecology/Obstetrics [facility] [address] [facility] [place] [address] Maggie Irene PA-C [address] [place] [address] 12/27/2023 3:00 PM EDT Office Visit Gynecology/Obstetrics [facility] [address] [facility] [place] [address] Sheryl Chowdary MD [address] [place] [address] [place] [address] 01/05/2024 10:30 AM EDT Office Visit Gynecology/Obstetrics [facility] [address] [facility] [place] [address] Garima New CRNP [address] [place] [address] Pending Results Name Type Priority Associated Diagnoses Date /Time GROUP B STREP CULTURE/PCR Lab Routine Normal in third trimester 12/10/2023 4:42 PM EDT Scheduled Orders Name Type Priority Associated Diagnoses Orde r Schedule GROUP B STREP CULTURE/PCR Lab Routine Normal in third trimester Expected: 12/10/2023, Expires: 12/09/2024 Health Maintenance Due Date Last Done Comments [...] mother documented in this encounter Care Teams Editor City Relationship Specialty Start Date End Date Laith Camara MD [address] [place] [address] PCP - General Family Medicine 10/10/19 documented as of this encounter
--- OUTSIDE RECORDS SUMMARY | 2023-12-22 11:01 | External Medical Summary | Summary of Care ---
Author Name Unknown Organization [facility] Address [address] [facility] [address] Phone [phone] Care Team Providers Care Analysis Specialist Name Role Phone Laith Camara MD Primary Care Provider [phone] Reason for Visit * Reason Onset Date Comments Forms Request 12/10/2023 Encounter Details Date Type Department Care Team (Late st Contact Info) Description 12/10/2023 Telephone Gynecology/Obstetrics [facility] [address] [place] [address] Maggie Irene PA-C [address] [place] [address] Forms Request Allergies Active Allergy Reactions Criticality [...] money to get more. Never true 08/06/2023 Westby Depression Scale Answer Date Recorded Westby Depression Scale Total 9 05/27/2023 The thought [...] encounter Miscellaneous Notes * Telephone Encounter - Maggie Irene PA-C - 12/15/2023 1:35 PM EDT FMLA signed, given back to Va. * Telephone Encounter - Va Villagran LPN - 12/14/2023 10:24 AM EDT Forms on Maggie's desk for signature. * Telephone Encounter - Va Villagran LPN - 12/10/2023 4:16 PM EDT FMLA forms received 12/10/2023 Would pt like forms faxed no, will brick picker at next visit Does pt need notified when done? no Patient Phone Numbers Forms on va's desk. documented in this encounter Plan of Treatment Upcoming Encounters Date Type Department Care Team (Late st Contact Info) Description 12/17/2023 4:30 PM EDT Office Visit Gynecology/Obstetrics [facility] [address] [place] [address] Maggie Irene PA-C [address] [place] [address] 12/22/2023 4:30 PM EDT Office Visit Gynecology/Obstetrics [facility] [address] [place] [address] Maggie Irene PA-C [address] [place] [address] 12/27/2023 3:00 PM EDT Office Visit Gynecology/Obstetrics [facility] [address] [place] [address] [facility] [place] [address] 01/05/2024 10:30 AM EDT Office Visit Gynecology/Obstetrics [facility] [address] [place] [address] Backer, GLORIA Drake [address] [place] [address] Health Maintenance Due Date Last Done Comments [...] filedocumented as of this encounter Care Teams Analysis Specialist Relationship Specialty Start Date End Date Laith Camara MD [address] [facility] [place] [address] PCP - General Family Medicine 10/10/19 documented as of this encounter
--- OUTSIDE RECORDS SUMMARY | 2023-12-22 11:01 | External Medical Summary | Summary of Care ---
Author Name Unknown Organization [facility] Address [address] [facility] [address] Phone [phone] Care Team Providers Care Nut Tapper Name Role Phone Laith Camara MD Primary Care Provider [phone] Reason for Visit * Reason Comments Return Visit Encounter Details Date Type Department Care Team (Late st Contact Info) Description 11/02/2023 4:15 PM EST Office Visit [facility]necology[facility]Obst[facility] s [facility] [address] [place] [address] Gama Vizcaino MD [address] [place] [address] Normal in third trimester*; Previous delivery, antepartum condition or complication; History of cholestasis during ; Marginal insertion of umbilical cord affecting management of mother Allergies Active Allergy Reactions Criticality Noted Date Comments Amoxicillin Rash 11/29/2018 Sulfamethoxazole-Trimethoprim Rash 2018 Clindamycin Rash 11/29/2018 documented as of this encounter (statuses as of 11/05/2023) Medications Medication Sig Dispensed Refills Start Date [...] as of this encounter (statuses as of 11/05/2023) Active Problems Problem Noted Date Diagnosed Date [...] as of this encounter (statuses as of 11/05/2023) Resolved Problems Problem Noted Date Diagnosed Date [...] as of this encounter (statuses as of 11/05/2023) Immunizations Name Administration Dates Next Due Seasonal [...] money to get more. Never true 08/06/2023 Crenshaw Depression Scale Answer Date Recorded Crenshaw Depression Scale Total 9 05/27/2023 The thought [...] Sign Reading Time Taken Comments Blood Pressure 122/70 11/02/2023 4:17 PM EST Pulse - - Temperature - - Respiratory Rate - - Oxygen Saturation - - Inhaled Oxygen Concentration - - Weight 79.4 kg (175 lb) 11/02/2023 4:17 PM EST Height 160 cm (5' 3") 11/02/2023 4:17 PM EST Body Mass Index 31 11/02/2023 4:17 PM EST documented in this encounter Progress Notes * Gama Vizcaino MD - 11/05/2023 2:31 PM EST Pt w/o cp,p Prior c/s discussed I reviewed with the patient risks of a (even if previously successful) for uterine rupture which may lead to adverse events to include maternal +/- , hypoxia leading to brain injury or cerbral palsy, need for emergent c/s requiring hysterectomy. Possible need for transfusion. I reviewed that this could occur .5-1%.Patient is aware that after 2 c-sections it is suggested forrepeat c/section . She is aware that with each c/section the risk for uterine rupture increases. Pt wishes to do repeat c/sec * Cierra [place] LPN - 11/02/2023 4:15 PM EST 31w2d Discuss delivery Needs 3rd [facility] [place] documented in this encounter Plan of Treatment Upcoming Encounters Date Type Department Care Team (Late st Contact Info) Description 11/16/2023 3:00 PM EST Office Visit Gynecology/Obst[facility]s [facility] [address] [place] [address] Gama Vizcaino MD [address] [place] [address] 12/03/2023 4:30 PM EDT Office Visit Gynecology/Obstetrics [facility] [address] [place] [address] Maggie Irene PA-C [address] [place] [address] 12/10/2023 4:30 PM EDT Office Visit Gynecology/Obstetrics [facility] [address] [place] [address] Maggie Irene PA-C [address] [place] [address] 12/17/2023 4:30 PM EDT Office Visit Gynecology/Obstetrics [facility] [address] [place], [place] [address] Maggie Irene PA-C [address] [place] [address] 12/22/2023 4:30 PM EDT Office Visit Gynecology/Obstetrics [facility] [address] [place] [address] Maggie Irene PA-C [address] [place] [address] 12/27/2023 3:00 PM EDT Office Visit Gynecology/Obstetrics [facility] [address] [place], [place] [address] Sheryl Chowdary MD [address] [place] [address] [place] [address] Health Maintenance Due Date Last Done Comments [...] mother documented in this encounter Care Teams Nut Tapper Relationship Specialty Start Date End Date Laith Camara MD [address] [place] [address] PCP - General Family Medicine 10/10/19 documented as of this encounter
--- OUTSIDE RECORDS SUMMARY | 2023-12-22 11:01 | External Medical Summary | Summary of Care ---
Author Name Unknown Organization [facility] Address [address] [facility] [place] [address] Phone [phone] Care Team Providers Care Safety And Health Manager Name Role Phone Laith Camara MD Primary Care Provider [phone] Reason for Visit * Reason Comments Return Visit Encounter Details Date Type Department Care Team (Late st Contact Info) Description 12/10/2023 4:30 PM EDT Office Visit Gynecology/Obstetric s [facility] [address] [place] [address] Maggie Irene PA-C [address] [place] [address] Normal in third trimester*; Previous delivery, antepartum [...] money to get more. Never true 08/06/2023 [place] Depression Scale Answer Date Recorded [place] Depression Scale Total 9 05/27/2023 The thought [...] Nursing Notes * Taylor Villagran LPN - 12/10/2023 4:17 PM EDT 36w5d Groin discomfort Gbs today documented in this encounter Plan of Treatment Upcoming Encounters Date Type Department Care Team (Late st Contact Info) Description 12/17/2023 4:30 PM EDT Office Visit Gynecology/Obstetrics [facility] [address] [place] [address] Maggie Irene PA-C [address] [place] [address] 12/22/2023 4:30 PM EDT Office Visit Gynecology/Obstetrics [facility] [address] [facility] [place] [address] Maggie Irene PA-C [address] [place] [address] 12/27/2023 3:00 PM EDT Office Visit Gynecology/Obstetrics [facility] [address] [facility] [place] [address] Sheryl Chowdary MD [address] [place] [address] [place] [address] 01/05/2024 10:30 AM EDT Office Visit Gynecology/Obstetrics [facility] [address] [facility] [place] [address] Garima New CRNP [address] [place] [address] Health Maintenance Due Date Last Done Comments [...] Procedure Name Priority Date/Time Associated Diagnosis Comments GROUP B STREP CULTURE/PCR Routine 12/10/2023 4:42 PM EDT Normal in third trimester documented in this encounter Results * GROUP B STREP CULTURE/PCR (12/10/2023 4:42 PM EDT) Group B Strep PCR Result Negative Negative 12/11/2023 10:47 PM EDT LABORATORY [facility] Comment: No Group B Streptococcus detected by culture-enhanced PCR (amplified probe). The collection of vaginal/rectal swab specimen combinations (FDA approved specimen type) is optimal for the detection of Group B Streptococcus. Single source collection (vaginal only or rectal only) or alternate specimen sources may lead to false negative results. Swab Rectum and vagina, CS / Unknown 12/10/2023 4:42 PM EDT 12/10/2023 4:42 PM EDT Maggie Irene PA-C LAB MICRO - GENERAL ORDERABLES LABORATORY [facility] [place] [address] [place] [address] documented in this encounter Visit Diagnoses Diagnosis Normal in third trimester- Primary Previous delivery, antepartum condition or complication History of cholestasis during Marginal insertion of umbilical cord affecting management of mother documented in this encounter Care Teams Safety And Health Manager Relationship Specialty Start Date End Date Laith Camara MD [address] [place] [address] PCP - General Family Medicine 10/10/19 documented as of this encounter
--- OUTSIDE RECORDS SUMMARY | 2023-12-22 11:02 | External Medical Summary ---
Author Name Unknown Address Unknown Organization [id number]:[facility]ATORY [facility] [place] [address] [place] [address] Laboratory Report Ordering Provider Test Date Status JIM CHEEMA 10/13/2023 14:24:36 Final Observation Date Value Abnormality Reference (Units ) Status Treponema pallidum Ab [Presence] in Serum by Immunoassay 10/13/2023 14:24:36 Nonreactive Nonreactive Final No serologic evidence of syp hilis. No additional testing clinicially indicated at this time. Consider repeat testing in 2-4 weeks if acute or primary syphilis is suspected. Performing Location LABORATORY [facility] [place] [address] [place] [address]
--- OUTSIDE RECORDS SUMMARY | 2023-12-22 11:02 | External Medical Summary ---
Author Name Unknown Address Unknown Organization [id number]:LABORATORY C - [address] [place] [address] Laboratory Report Ordering Provider Test Date Status JIM CHEEMA 10/13/2023 14:24:36 Final Observation Date Value Abnormality Reference (Units ) Status Ferritin 10/13/2023 14:24:36 18 13-150 (ng /mL) Final Performing Location LABORATORY [facility] - [address] [place] [address]
--- OUTSIDE RECORDS SUMMARY | 2023-12-22 11:02 | External Medical Summary ---
Author Name Unknown Address Unknown Organization [id number]:LABORATORY [facility] [place] [address] - [address] [place] [address] Laboratory Report Ordering Provider Test Date Status JIM CHEEMA 10/19/2023 09:13:02 Final Observation Date Value Abnormality Reference (Units ) Status Glucose [Mass/volume] in Serum or Plasma --1 hour post dose glucose 10/19/2023 09:13:02 151 70-179 (mg/dL) Final Performing Location LABORATORY [facility] [place] [address] - [address] [place] [address]
--- OUTSIDE RECORDS SUMMARY | 2023-12-22 11:02 | External Medical Summary ---
Author Name Unknown Address Unknown Organization [id number][facility] [address] [place] [address] Laboratory Report Ordering Provider Test Date Status DENIJIM 10/13/2023 14:24:36 Final Observation Date Value Abnormality Reference (Units ) Status Glucose [Moles/volume] in Serum or Plasma --1 hour post 50 g glucose PO 10/13/2023 14:24:36 149 Above high normal 70-129 (mg/dL) Final Performing Location LABORATORY [facility] [place] [address] - [address] [place] [address]
--- OUTSIDE RECORDS SUMMARY | 2023-12-22 11:02 | External Medical Summary ---
Author Name Unknown Address Unknown Organization [id number]:[place]ORY [facility] [place] [facility] [place] [address] Laboratory Report Ordering Provider Test Date Status KEVIN CHEEMAROSINA 10/13/2023 14:24:36 Final Observation Date Value Abnormality Reference (Units ) Status WBC, Total 10/13/2023 14:24:36 12.16 Above high normal 4 .00-10.80 (K/uL) Final RBC 10/13/2023 14:24:36 3.65 3.85-5.15 (M/uL) Final Hemoglobin 10/13/2023 14:24:36 11.5 Below low normal 12 .0-15.3 (g/dL) Final Anemia reflex testing trigge rs on a HGB < 12.0 for Females and HGB < 13.0 for Males in accordance with the WHO Anemia Guidelines
Anemia reflex testing triggers on a HGB < 12.0 for Females and HGB < 13.0 for Males in accordance with the WHO Anemia Guidelines HCT 10/13/2023 14:24:36 34.6 Below low normal 36. 0-45.2 (%) Final MCV 10/13/2023 14:24:36 94.8 81.5-97.5 (fL) Final MCH 10/13/2023 14:24:36 31.5 27.0-34.0 (pg) Final MCHC 10/13/2023 14:24:36 33.2 32.0-36.0 (g/dL) Final RDW 10/13/2023 14:24:36 13.4 11.5-15.5 (%) Final Platelets 10/13/2023 14:24:36 272 140-400 (K /uL) Final MPV 10/13/2023 14:24:36 10.8 6.6-11.1 ( fL) Final Nucleated erythrocytes/100 leukocytes [Ratio] in Blood by Automated count 10/13/2023 14:24:36 0 <=0 (/100 WBCs) Final Performing Location [facility] [facility] [place] [address] [facility] [address]
--- OUTSIDE RECORDS SUMMARY | 2023-12-22 11:02 | External Medical Summary | Summary of Care ---
Author Name Unknown Organization [facility] Address [address] [facility] [place] [address] Phone [phone] Care Team Providers Care Feather Curling Machine Operator Name Role Phone Laith Camara MD Primary Care Provider [phone] Reason for Visit * Reason Comments Return Visit Encounter Details Date Type Department Care Team (Late st Contact Info) Description 09/17/2023 2:30 PM EST Office Visit Gynecology/Obstetric s [facility] [address] [place] [address] Alesia Russ CRNP [address] [place] [address] Normal in second trimester*; Previous delivery, antepartum condition or complication; History of cholestasis during ; Marginal insertion of umbilical cord affecting management of mother Allergies Active Allergy Reactions Criticality Noted Date Comments Amoxicillin Rash 11/29/2018 Sulfamethoxazole-Trimethoprim Rash 2018 Clindamycin Rash 11/29/2018 documented as of this encounter (statuses as of 09/17/2023) Medications Medication Sig Dispensed Refills Start Date [...] as of this encounter (statuses as of 09/17/2023) Active Problems Problem Noted Date Diagnosed Date [...] as of this encounter (statuses as of 09/17/2023) Resolved Problems Problem Noted Date Diagnosed Date [...] as of this encounter (statuses as of 09/17/2023) Immunizations Name Administration Dates Next Due Seasonal Influenza, PF, 6 M & above, IM , (FluLaval or Fluzone) 05/27/2023,08/18/2021,05/25/2019 TDAP (age 10 and older)(Boostrix) 01/01/2022, documented as of this encounter Social History [...] money to get more. Never true 08/06/2023 [place] Depression Scale Answer Date Recorded [place] Depression Scale Total 9 05/27/2023 The thought [...] Sign Reading Time Taken Comments Blood Pressure 116/60 09/17/2023 2:35 PM EST Pulse - - Temperature - - Respiratory Rate - - Oxygen Saturation - - Inhaled Oxygen Concentration - - Weight 77.6 kg (171 lb) 09/17/2023 2:35 PM EST Height - - Body Mass Index 30.29 08/20/2023 1:44 PM EST documented in this encounter Progress Notes * Alesia Russ CRNP - 09/17/2023 2:57 PM EST 24w5d Complaints: none Feeling well. Good FM. No contractions, bleeding, or LOF. Glucola with next visit. Watch weight gain. GLORIA [place] * Zahra Avalos LPN - 09/17/2023 2:36 PM EST 24w5d Denies vaginal bleeding/rom + movement No new concerns documented in this encounter Plan of Treatment Upcoming Encounters Date Type Department Care Team (Late st Contact Info) Description 10/13/2023 1:50 PM EST [facility] [address] [place] [address] [facility] [address] [place] [address] 10/13/2023 2:00 PM EST Office [facility] [address] [place] [address] Alesia Russ CRNP [address] [place] [address] 11/03/2023 4:30 PM EST Office Visit Gynecology/Obstetrics [facility] [address] [place] [address] Maggie Irene PA-C [address] [place] [address] Scheduled Orders Name Type Priority Associated Diagnoses Orde r Schedule 50-G GESTATIONAL GLUCOSE, 1 HOUR Lab Routine Normal in second trimester Expected: 10/01/2023 (Approximate), Expires: 09/17/2024 CBC WITH WBC DIFFERENTIAL AND ANEMIA REFLEX WORKUP Lab Routine Normal in second trimester Expected: 10/01/2023 (Approximate), Expires: 09/17/2024 SYPHILIS ANTIBODY SCREEN WITH REFLEX TO RPR Lab Routine Normal in second trimester Expected: 10/01/2023 (Approximate), Expires: 09/17/2024 Health Maintenance Due Date Last Done Comments Depression Screening 2005 COVID-19 Vaccine ( season) 2023 11/18/2020 Pap Smear 04/17/2025 04/17/2022, 11/29/2018 DTaP,Tdap,and Td Vaccines (10 - Td or Tdap) 01/02/2032 01/01/2022, 05/10/2019, 10/15/2016, Additional history exists Hepatitis B Completed 03/16/1994, [...] this encounter Visit Diagnoses Diagnosis Normal in second trimester- Primary Previous delivery, antepartum condition or complication History of cholestasis during Marginal insertion of umbilical cord affecting management of mother documented in this encounter Care Teams Feather Curling Machine Operator Relationship Specialty Start Date End Date Laith Camara MD [address] [place] [address] PCP - General Family Medicine 10/10/19 documented as of this encounter
--- OUTSIDE RECORDS SUMMARY | 2023-12-22 11:02 | External Medical Summary ---
Author Name Unknown Address Unknown Organization K01:[facility]ATORY [facility] [place] [address] [facility] [place] [address] Laboratory Report Ordering Provider Test Date Status JIM CHEEMA 10/13/2023 14:24:36 Final Observation Date Value Abnormality Reference (Units ) Status SYNC LEUKOCYTES IN BLOOD BY AUTOMATED COUNT 10/13/2023 14:24:36 12.16 Above high normal 4.00-10.80 (K/uL) Final Segs 10/13/2023 14:24:36 77.8 Above high normal 40.0-75.0 (%) Final Lymphs % 10/13/2023 14:24:36 16.7 Below low normal 18.0-42.0 (%) Final Monos 10/13/2023 14:24:36 4.9 1.0-11.0 (%) Final Eosinophils 10/13/2023 14:24:36 0.0 0.0-6.0 (%) Final Basos 10/13/2023 14:24:36 0.1 0.0-2.0 (%) Final Immature Granulocyte, Percent 10/13/2023 14:24:36 0.5 0.0-2.0 (%) Final Absolute Segs 10/13/2023 14:24:36 9.46 Above high normal 1.80-7.70 (K/uL) Final Lymphs, absolute 10/13/2023 14:24:36 2.03 1.00-4.80 (K/ul) Final Monos, Abs 10/13/2023 14:24:36 0.60 0.00-1.10 (K/uL) Final Eos, Abs 10/13/2023 14:24:36 0.00 0.00-0.70 (K/uL) Final Basos, Abs 10/13/2023 14:24:36 0.01 0.00-0.20 (K/uL) Final Immature Granulocytes, Number 10/13/2023 14:24:36 0.06 0.00-0.20 (K/uL) Final Performing Location LAB[facility]ATORY [facility] [place] [facility] [address] [facility] [address]
--- OUTSIDE RECORDS SUMMARY | 2023-12-22 11:02 | External Medical Summary | Summary of Care ---
Author Name Unknown Organization [facility] Address [address] [facility] [place] [address] Phone [phone] Care Team Providers Care Carton Liner Name Role Phone Laith Camara MD Primary Care Provider [phone] Reason for Visit * Reason Comments Return Visit Encounter Details Date Type Department Care Team (Late st Contact Info) Description 10/13/2023 2:00 PM EST Office Visit Gynecology/Obstetric s [facility] [address] [place] [address] Alesia Russ CRNP [address] [place] [address] Normal in third trimester*; Previous delivery, antepartum condition or complication; History of cholestasis during ; Marginal insertion of umbilical cord affecting management of mother; Need for prophylactic vaccination with combined eupcfzvabk-kvuhuvb-un rtussis (DTP) vaccine Allergies Active Allergy Reactions Criticality Noted Date Comments Amoxicillin Rash 11/29/2018 Sulfamethoxazole-Trimethoprim Rash 2018 Clindamycin Rash 11/29/2018 documented as of this encounter (statuses as of 10/13/2023) Medications Medication Sig Dispensed Refills Start Date [...] as of this encounter (statuses as of 10/13/2023) Active Problems Problem Noted Date Diagnosed Date [...] as of this encounter (statuses as of 10/13/2023) Resolved Problems Problem Noted Date Diagnosed Date [...] as of this encounter (statuses as of 10/13/2023) Immunizations Name Administration Dates Next Due Seasonal [...] money to get more. Never true 08/06/2023 [place] Depression Scale Answer Date Recorded [place] Depression Scale Total 9 05/27/2023 The thought [...] Sign Reading Time Taken Comments Blood Pressure 118/62 10/13/2023 1:44 PM EST Pulse - - Temperature - - Respiratory Rate - - Oxygen Saturation - - Inhaled Oxygen Concentration - - Weight 78 kg (172 lb) 10/13/2023 1:44 PM EST Height 160 cm (5' 3") 10/13/2023 1:44 PM EST Body Mass Index 30.47 10/13/2023 1:44 PM EST documented in this encounter Progress Notes * Alesia Russ CRNP - 10/13/2023 1:53 PM EST 28w3d Complaints: none Feeling well overall. Good FM. No contractions, bleeding, or LOF. Glucola, TDAP today. GLORIA Baxter documented in this encounter Nursing Notes * Cierra Nguyen LPN - 10/13/2023 2:00 PM EST Patient here for tdap injection. Patient doing well no complaints. Injection given IM as ordered. Patient tolerated well. Patient to follow up as directed. Patient instructed to call if any complications. Patient verbalized understanding of instructions given and her follow up appt for 2 weeks Injection site: Left Deltoid Medication Source: Dispensed stock medication * Cierra Nguyen LPN - 10/13/2023 1:43 PM EST 28w3d Doing glucola Would like tdap documented in this encounter Plan of Treatment Upcoming Encounters Date Type Department Care Team (Late st Contact Info) Description 11/02/2023 4:15 PM EST Office Visit Gynecology/Obstetrics [facility] [address] [place] [address] Gama Vizcaino MD [address] [place] [address] 11/16/2023 3:00 PM EST Office Visit Gynecology/Obstetrics [facility] [address] [place] [address] Gama Vizcaino MD [address] [place] [address] 12/03/2023 4:30 PM EDT Office Visit Gynecology/Obstetrics [facility] [address] [place] [address] Maggie Irene PA-C [address] [place] [address] 12/10/2023 4:30 PM EDT Office Visit Gynecology/Obstetrics [facility] [address] [place] [address] Maggie Irene PA-C [address] [place] [address] 12/17/2023 4:30 PM EDT Office Visit Gynecology/Obstetrics [facility] [address] [place] [address] Maggie Irene PA-C [address] [place] [address] 12/22/2023 4:30 PM EDT Office Visit Gynecology/Obstetrics [facility] [address] [place] [address] Maggie Irene PA-C [address] [place] [address] 12/27/2023 3:00 PM EDT Office Visit Gynecology/Obstetrics [facility] [address] [place] [address] Sheryl Chowdary MD [address] [place] [address] [place] [id number] Health Maintenance Due Date Last Done Comments [...] of umbilical cord affecting management of mother Need for prophylactic vaccination with combined noupqrgyvo-dfhqilz-hrkvmzsxy (DTP) vaccine documented in this encounter Care Teams Carton Liner Relationship Specialty Start Date End Date Laith Camara MD [address] [place] [address] PCP - General Family Medicine 10/10/19 documented as of this encounter
--- OUTSIDE RECORDS SUMMARY | 2023-12-22 11:02 | External Medical Summary | Summary of Care ---
Author Name Unknown Organization [facility] Address [address] [facility] [address] Phone [phone] Care Team Providers Care Filler Sifter Helper Name Role Phone Laith Camara MD Primary Care Provider [phone] Reason for Visit * Reason Comments Return Visit Encounter Details Date Type Department Care Team (Late st Contact Info) Description 08/20/2023 2:30 PM EST Office Visit Gynecology/Obstetric s [facility] [address] [place] [address] Alesia Russ CRNP [address] [place] [address] Normal in second trimester*; Previous delivery, antepartum condition or complication; History of cholestasis during Allergies Active Allergy Reactions Criticality Noted Date Comments Amoxicillin Rash 11/29/2018 Sulfamethoxazole-Trimethoprim Rash 2018 Clindamycin Rash 11/29/2018 documented as of this encounter (statuses as of 08/20/2023) Medications Medication Sig Dispensed Refills Start Date [...] as of this encounter (statuses as of 08/20/2023) Active Problems Problem Noted Date Diagnosed Date Normal 05/27/2023 Previous delivery, antepartum condition or complication 05/27/2023 History of cholestasis during 05/27/20 23 Overview: 2nd Irritable bowel syndrome 06/18/2021 History of hiatal hernia 11/29/2018 Estimated Date of Delivery Comme nts Yes 01/02/2024 Based on last me nstrual period of 03/28/2023 documented as of this encounter (statuses as of 08/20/2023) Resolved Problems Problem Noted Date Diagnosed Date [...] as of this encounter (statuses as of 08/20/2023) Immunizations Name Administration Dates Next Due SEASONAL INFLUENZA, PF, 6 M & Above, IM , (FLULAVAL or FLUZONE) 05/27/2023,08/18/2021,05/25/2019 TDAP (age 10 and older)(Boostrix) 01/01/2022, [...] money to get more. Never true 08/06/2023 [place] Depression Scale Answer Date Recorded [place] Depression Scale Total 9 05/27/2023 The thought [...] Sign Reading Time Taken Comments Blood Pressure 120/60 08/20/2023 1:44 PM EST Pulse - - Temperature - - Respiratory Rate - - Oxygen Saturation - - Inhaled Oxygen Concentration - - Weight 71.1 kg (156 lb 12.8 oz) 08/20/2023 1:44 PM EST Height 160 cm (5' 3") 08/20/2023 1:44 PM EST Body Mass Index 27.78 08/20/2023 1:44 PM EST documented in this encounter Progress Notes * Alesia uRss CRNP - 08/20/2023 1:56 PM EST 20w5d Having edema when she wakes in the morning, resolves quickly. This occurred in last as well, then was dx with ICP. She has no itching today. Advised that edema which resolves quickly is nota classic symptom of ICP, to notify office if anything changes. She is happy with this. Baby is active. No contractions. No n/v. Anatomy u/s today, results pending. GLORIA Baxter * Arleth Allen LPN - 08/20/2023 1:44 PM EST 20w5d Pt would like to discuss cholestasis, had during 2nd , started out as hands/feet swelling,has been having this when she wakes up in the mornings. Pt denies any other concerns. documented in this encounter Plan of Treatment Upcoming Encounters Date Type Department Care Team (Late st Contact Info) Description 09/17/2023 2:30 PM EST Office Visit Gynecology/Obstetrics [facility] [address] [place] [address] Alesia Russ CRNP [address] [place] [address] Health Maintenance Due Date Last Done Comments Depression Screening 2005 COVID-19 Vaccine (2 - 2022-24 season) 2023 11/18/2020 Pap Smear 04/17/2025 04/17/2022, [...] condition or complication History of cholestasis during documented in this encounter Care Teams Filler Sifter Helper Relationship Specialty Start Date End Date Laith Camara MD [address] [place] [address] PCP - General Family Medicine 10/10/19 documented as of this encounter
--- OUTSIDE RECORDS SUMMARY | 2023-12-22 11:02 | External Medical Summary ---
Author Name Unknown Address Unknown Organization K01:LABORATORY C - [address] [place] [address] Laboratory Report Ordering Provider Test Date Status JIM CHEEMA 10/13/2023 14:24:36 Final Observation Date Value Abnormality Reference (Units ) Status TSH 10/13/2023 14:24:36 1.12 0.27-4.20 (uIU/mL) Final Performing Location LABORATORY [facility] - [address] [place] [address]
--- OUTSIDE RECORDS SUMMARY | 2023-12-22 11:02 | External Medical Summary | Summary of Care ---
Author Name Unknown Organization [facility] Address [address] [facility] [place] [address] Phone [phone] Care Team Providers Care Accordion Repairer Name Role Phone Laith Camara MD Primary Care Provider [phone] Reason for Visit * Reason Onset Date Comments Abnormal Test Results 10/13/2023 Encounter Details Date Type Department Care Team (Late st Contact Info) Description 10/13/2023 Telephone Gynecology/Obstetrics [facility] [address] [place] [address] Alesia Russ CRNP [address] [place] [address] Abnormal Test Results Allergies Active Allergy Reactions Criticality Noted Date Comments Amoxicillin Rash 11/29/2018 Sulfamethoxazole-Trimethoprim Rash 2018 Clindamycin Rash 11/29/2018 documented as of this encounter (statuses as of 10/14/2023) Medications Medication Sig Dispensed Refills Start Date [...] as of this encounter (statuses as of 10/14/2023) Active Problems Problem Noted Date Diagnosed Date [...] as of this encounter (statuses as of 10/14/2023) Resolved Problems Problem Noted Date Diagnosed Date [...] as of this encounter (statuses as of 10/14/2023) Immunizations Name Administration Dates Next Due Seasonal [...] money to get more. Never true 08/06/2023 [place] Depression Scale Answer Date Recorded [place] Depression Scale Total 9 05/27/2023 The thought [...] encounter Miscellaneous Notes * Telephone Encounter - Alesia Russ CRNP - 10/14/2023 8:36 AM EST 3hr GTT ordered. * Telephone Encounter - Blank Estrada RN - 10/13/2023 3:45 PM EST Pt called after seeing her glucose. GLUCOSE - [facility] Date/Time Value Ref Range Status 03/06/2022 12:45 PM 87 70 - 120 mg/dL Final GLUCOSE URINE, POCT - [facility] Date/Time Value Ref Range Status 05/27/2023 12:00 AM Negative Negative mg/dL Final GLUCOSE, GESTATIONAL Date/Time Value Ref Range Status 04/25/2019 11:44 AM 98 70 - 129 mg/dL Final GLUCOSE, URINE - [facility] Date/Time Value Ref Range Status 08/18/2021 12:00 AM neg neg - neg Final GLUCOSE-OUTSIDE LAB Date/Time Value Ref Range Status 05/09/2023 12:00 AM 89 70 - 99 MG/DL Patient notified of abnormal glucola. The order has been placed in epic. Patient. advised to be NPO after 10pm the night before the test.The patient must stay on the premises for the entire time of the test. Patient counseled to take something to eat for after testing. [facility] Will need orders placed. documented in this encounter Plan of Treatment Upcoming Encounters Date Type Department Care Team (Late st Contact Info) Description 10/19/2023 8:00 AM EST Laboratory Laboratory, [facility] [address] [place] [id number] [facility] [address] [place] [address] 11/02/2023 4:15 PM EST Office Visit Gynecology/Obstetrics [facility] [address] [place] [address] Gama Vizcaino MD [address] [place] [address] 11/16/2023 3:00 PM EST Office Visit Gynecology/Obstetrics [facility] [address] [place] [address] Gama Vizcaino MD [address] [place] [address] 12/03/2023 4:30 PM EDT Office Visit Gynecology/Obstetrics [facility] [address] [place] [address] Maggie Irene PA-C [address] [place] [address] 12/10/2023 4:30 PM EDT Office Visit Gynecology/Obstetrics [facility] [address] [place] [address] Maggie Irene PA-C [address] [place] [address] 12/17/2023 4:30 PM EDT Office Visit Gynecology/Obstetrics [facility] [address] [place] [address] Maggie Irene PA-C [address] [place] [address] 12/22/2023 4:30 PM EDT Office Visit Gynecology/Obstetrics [facility] [address] [place] [address] Maggie Irene PA-C [address] [place] [address] 12/27/2023 3:00 PM EDT Office Visit Gynecology/Obstetrics [facility] [address] [place] [address] Sheryl Chowdary MD [address] [place] [address] [place] [address] Scheduled Orders Name Type Priority Associated Diagnoses Orde r Schedule GESTATIONAL GLUCOSE TOLERANCE, 3 HOUR Lab Routine Abnormal glucose tolerance in mother complicating Expected: 10/15/2023 (Approximate), Expires: 10/14/2024 Health Maintenance Due Date Last Done Comments [...] as of this encounter Visit Diagnoses Diagnosis Abnormal glucose tolerance in mother complicating - Primary Abnormal maternal glucose tolerance, complicating , childbirth, or the puerperium, unspecified as to episode of care documented in this encounter Care Teams Accordion Repairer Relationship Specialty Start Date End Date Laith Camara MD [address] [place] [address] PCP - General Family Medicine 10/10/19 documented as of this encounter
--- OUTSIDE RECORDS SUMMARY | 2023-12-22 11:02 | External Medical Summary ---
Author Name Unknown Address Unknown Organization [id number]:LAB[facility]ATORY [facility] - [address] [place] [address] Laboratory Report Ordering Provider Test Date Status JIM CHEEMA 10/13/2023 14:24:36 Final Observation Date Value Abnormality Reference (Units ) Status Vitamin B12 10/13/2023 14:24:36 761 699-3627 (pg/mL) Final Performing Location [facility] - [address] [place] [address]
--- OUTSIDE RECORDS SUMMARY | 2023-12-22 11:02 | External Medical Summary ---
Author Name Unknown Address Unknown Organization [id number] [place] [address] [place] [address] Laboratory Report Ordering Provider Test Date Status JIM CHEEMA 10/13/2023 14:24:36 Final Observation Date Value Abnormality Reference (Units ) Status Folic Acid 10/13/2023 14:24:36 19.9 >4.5 (ng/ mL) Final Performing Location [facility] - [address] [place] [address]
--- OUTSIDE RECORDS SUMMARY | 2023-12-22 11:02 | External Medical Summary ---
Author Name Unknown Address Unknown Organization [id number]:LABORATORY [facility] [place] - [facility] [address] [place] [address] Laboratory Report Ordering Provider Test Date Status JIM CHEEMA 10/13/2023 14:24:36 Final Observation Date Value Abnormality Reference (Units ) Status Retic, % (auto) 10/13/2023 14:24:36 2.25 Above high normal 0.80-1.90 (%) Final Reticulocytes, Absolute 10/13/2023 14:24:36 81.2 31.3-100.1 (K/uL) Final Reticulocyte fraction, immature 10/13/2023 14:24:36 13.9 2.5-20.6 (%) Final Reticulocyte HGB 10/13/2023 14:24:36 35.4 29.7-37.4 (pg) Final Performing Location LABORATORY [facility] - [address] [place] [address]
--- OUTSIDE RECORDS SUMMARY | 2023-12-22 11:02 | External Medical Summary ---
Author Name Unknown Address Unknown Organization [id number]:LABORATORY [facility] [place] [address] - [address] [place] [address] Laboratory Report Ordering Provider Test Date Status KEVIN CHEEMAROSINA 10/19/2023 08:08:27 Final Based on ACOG guideline, ges tational diabetes mellitus is diagnosed when any of the following is met:
Fasting is greater than or equal to 95 mg/dL
1 hour is greater than or equal to 180 mg/dL
2 hour is greater than or equal to 155 mg/dL
3 hour is greater than or equal to 140 mg/dL Observation Date Value Abnormality Reference (Units ) Status Glucose, fasting 10/19/2023 08:08:27 83 70- 94 (mg/dL) Final Performing Location LABORATORY [facility] [place] [address] 0 - [address] [place] [address]
--- OUTSIDE RECORDS SUMMARY | 2023-12-22 11:02 | External Medical Summary ---
Author Name Unknown Address Unknown Organization [id number] [place] [facility] [address] [place] [address] Laboratory Report Ordering Provider Test Date Status JIM CHEEMA 10/13/2023 14:24:36 Final Observation Date Value Abnormality Reference (Units ) Status Creatinine 10/13/2023 14:24:36 0.5 0.5-1.0 (mg/dL) Final Glomerular filtration rate/1.73 sq M.predicted [Volume Rate/Area] in Serum, Plasma or Blood by Creatinine-based formula (CKD-EPI) 10/13/2023 14:24:36 >90 >=60 (mL/min) Final eGFR is calculated based on the CKD-EPI 2020 equation Performing Location [facility] [place] [address] [place] [address]
--- OUTSIDE RECORDS SUMMARY | 2023-12-22 11:02 | External Medical Summary | Summary of Care ---
Author Name Unknown Organization [facility] Address [address] [facility] [address] Phone [phone] Care Team Providers Care Lime Boiler Name Role Phone Laith Camara MD Primary Care Provider [phone] Reason for Visit * Reason Comments Outpatient Testing Encounter Details Date Type Department Care Team (Late st Contact Info) Description 10/13/2023 1:50 PM EST Laboratory Laboratory, [facility] [address] [facility] [place] [phone] [facility] [address] [place] [address] Normal in second trimester Allergies Active Allergy Reactions Criticality Noted [...] money to get more. Never true 08/06/2023 [place] Depression Scale Answer Date Recorded [place] Depression Scale Total 9 05/27/2023 The thought [...] 11/02/2023 4:15 PM EST Office Visit Gynecology/Obstetrics [facility] [address] [facility] [place] [address] Gama Vizcaino MD [address] [place] [address] 11/16/2023 3:00 PM EST Office Visit Gynecology/Obstetrics [facility] [address] [place] [address] Gama Vizcaino MD [address] [place] [address] 12/03/2023 4:30 PM EDT Office Visit Gynecology/Obstetrics [facility] [address] [place] [address] Maggie Irene PA-C [address] [place] [address] 12/10/2023 4:30 PM EDT Office Visit Gynecology/Obstetrics [facility] [address] [place] [address] Maggie Irene PA-C [address] [place] [address] 12/17/2023 4:30 PM EDT Office Visit Gynecology/Obstetrics [facility] [address] [place] [address] Maggie Irene PA-C [address] [place] [address] 12/22/2023 4:30 PM EDT Office Visit Gynecology/Obstetrics [facility] [address] [place] [address] Maggie Irene PA-C [address] [place] [address] 12/27/2023 3:00 PM EDT Office Visit Gynecology/Obstetrics [facility] [address] [place] [address] Sheryl Chowdary MD [address] [place] [address] [place] [address] Pending Results Name Type Priority Associated Diagnoses Date /Time 50-G GESTATIONAL GLUCOSE, 1 HOUR Lab Routine Normal in second trimester 10/13/2023 2:24 PM EST CBC WITH WBC DIFFERENTIAL AND ANEMIA REFLEX WORKUP Lab Routine Normal in second trimester 10/13/2023 2:24 PM EST SYPHILIS ANTIBODY SCREEN WITH REFLEX TO RPR Lab Routine Normal in second trimester 10/13/2023 2:24 PM EST ANEMIA CBC Lab Routine Normal in second trimester 10/13/2023 2:24 PM EST DIFFERENTIAL, AUTOMATED Lab Routine Normal in second trimester 10/13/2023 2:24 PM EST ANEMIA REFLEX CHEMISTRY HOLD Lab Routine Normal in second trimester 10/13/2023 2:24 PM EST SYPHILIS ANTIBODY SCREEN Lab Routine Normal in second trimester 10/13/2023 2:24 PM EST Health Maintenance Due Date Last Done [...] encounter Visit Diagnoses Diagnosis Normal in second trimester documented in this encounter Care Teams Lime Boiler Relationship Specialty Start Date End Date Laith Camara MD [address] [place] [address] PCP - General Family Medicine 10/10/19 documented as of this encounter
--- OUTSIDE RECORDS SUMMARY | 2023-12-22 11:02 | External Medical Summary ---
Author Name Unknown Address Unknown Organization K01:LABORATORY [facility] - [address] [place] [address] Laboratory Report Ordering Provider Test Date Status KEVIN CHEEMAROSINA 10/13/2023 14:24:36 Final Observation Date Value Abnormality Reference (Units ) Status Iron 10/13/2023 14:24:36 92 33-151 (ug /dL) Final Iron-binding capacity 10/13/2023 14:24:36 407 250-425 (ug/dL) Final Transferrin Sat % 10/13/2023 14:24:36 23 15 -55 (%) Final Performing Location LABORATORY [facility] - [address] [place] [address]
--- OUTSIDE RECORDS SUMMARY | 2023-12-22 11:03 | External Medical Summary | Summary of Care ---
Author Name Unknown Organization [facility] Address [address] [facility] [place] [address] Phone [phone] Care Team Providers Care Blueprint Tracer Name Role Phone Laith Camara MD Primary Care Provider [phone] Reason for Visit * Reason Comments Return Visit Encounter Details Date Type Department Care Team (Late st Contact Info) Description 07/23/2023 1:30 PM EDT Office Visit Gynecology/Obstetric s [facility] [address] [place] [address] Garima New CRNP [address] [place] [address] Normal in second trimester*; Previous delivery, antepartum condition or complication; History of cholestasis during Allergies Active Allergy Reactions Criticality Noted Date Comments Amoxicillin Rash 11/29/2018 Sulfamethoxazole-Trimethoprim Rash 2018 Clindamycin Rash 11/29/2018 documented as of this encounter (statuses as of 07/23/2023) Medications Medication Sig Dispensed Refills Start Date [...] as of this encounter (statuses as of 07/23/2023) Active Problems Problem Noted Date Diagnosed Date Normal 05/27/2023 Previous delivery, antepartum condition or complication 05/27/2023 History of cholestasis during 05/27/20 23 Overview: 2nd Irritable bowel syndrome 06/18/2021 History of hiatal hernia 11/29/2018 Estimated Date of Delivery Comme nts Yes 01/02/2024 Based on last me nstrual period of 03/28/2023 documented as of this encounter (statuses as of 07/23/2023) Resolved Problems Problem Noted Date Diagnosed Date [...] as of this encounter (statuses as of 07/23/2023) Immunizations Name Administration Dates Next Due SEASONAL [...] the money to buy more. Never true 05/27/20 23 Within the past 12 months, t he food you bought just didn't last and you didn't have money to get more. Never true 05/27/2023 [place] Depression Scale Answer Date Recorded [place] Depression Scale Total 9 05/27/2023 The thought [...] Sign Reading Time Taken Comments Blood Pressure 118/60 07/23/2023 1:13 PM EDT Pulse - - Temperature - - Respiratory Rate - - Oxygen Saturation - - Inhaled Oxygen Concentration - - Weight 68.5 kg (151 lb) 07/23/2023 1:13 PM EDT Height - - Body Mass Index 26.75 05/27/2023 1:05 PM EDT documented in this encounter Progress Notes * Zahra Avalos LPN - 07/23/2023 1:13 PM EDT 16w5d Denies vaginal bleeding/rom + movement No new concerns * Garima New CRNP - 07/23/2023 1:12 PM EDT 16w5d Doing well, starting to feel some flutters. No cramping/bleeding. Declines genetic screening. Anatomy scan with next visit. GLORIA Martell documented in this encounter Plan of Treatment Upcoming Encounters Date Type Department Care Team (Late st Contact Info) Description 08/20/2023 12:45 PM EST Imaging Radiology [facility] 2nd [facility] [address] [facility] [place] [address] 08/20/2023 2:30 PM EST Office Visit Gynecology/Obstetrics [facility] [address] [facility] [place] [address] Alesia Russ CRNP [address] [facility] [place] [address] Scheduled Orders Name Type Priority Associated Diagnoses Orde r Schedule US PREG SINGLE/1ST GEST, 14 WEEKS OR LATER Medical Imaging Routine Normal in second trimester Expected: 08/06/2023 (Approximate), Expires: 08/22/2024 Health Maintenance Due Date Last Done Comments Hepatitis B (1 of 3 - 3-dose series) 1993 Depression Screening 2005 COVID-19 Vaccine ( season) 2023 11/18/2020 Pap Smear 04/17/2025 04/17/2022, 11/29/2018 DTaP,Tdap,and Td Vaccines (10 - Td or Tdap) 01/02/2032 01/01/2022, 05/10/2019, 10/15/2016, Additional history exists Influenza Vaccine (FLU shot) Completed 03/2023, 08/18/2021, 05/25/2019, Additional history exists GARDASIL-HPV IMMUNIZATION SERIES Aged Out No longer eligible based on patient's age to complete this topic MENINGOCOCCAL (MENACTRA/MENVEO) Aged Out No longer eligible based on patient's age to complete this topic Pneumococcal Vaccine: Pediatrics (0 to 5 Years) [...] during documented in this encounter Care Teams Blueprint Tracer Relationship Specialty Start Date End Date Laith Camara MD [address] [place] [address] PCP - General Family Medicine 10/10/19 documented as of this encounter
--- OUTSIDE RECORDS SUMMARY | 2023-12-22 11:03 | External Medical Summary | Summary of Care ---
Author Name Unknown Organization [facility] Address [address] [facility] [place] [address] Phone [phone] Care Team Providers Care Programming Equipment Operator Name Role Phone Laith Camara MD Primary Care Provider [phone] Reason for Visit * Reason Comments Return Visit Encounter Details Date Type Department Care Team Description 06/25/2023 Office Visit Gynecology/Obstetrics [facility] [address] [place] [address] Maggie Irene PA-C [address] [place] [address] Normal in second trimester*; Previous delivery, antepartum condition or complication; History of cholestasis during Allergies Active Allergy Reactions Severity Noted Date Comments Amoxicillin Rash 11/29/2018 Sulfamethoxazole-Trimethoprim Rash 2018 Clindamycin Rash 11/29/2018 documented as of this encounter (statuses as of 06/25/2023) Medications Medication Sig Dispensed Refills Start Date End Date Status 19 29-1 MG Oral Tablet Chewable Take by mouth. 0 Active Promethazine HCl 25 MG Rectal Suppository (Phenergan)Indicatio ns: related nausea, antepartum Administer 1 Suppository into the rectum every 6 hours as needed for Nausea. 20 Each 2 05/27/2023 Active documented as of this encounter (statuses as of 06/25/2023) Active Problems Problem Noted Date Normal 05/27/2023 Previous delivery, antepartum c ondition or complication 05/27/2023 History of cholestasis during 05/27/2023 Overview: 2nd Irritable bowel syndrome 06/18/2021 History of hiatal hernia 11/29/2018 Estimated Date of Delivery Comme nts Yes 01/02/2024 Based on last me nstrual period of 03/28/2023 documented as of this encounter (statuses as of 06/25/2023) Resolved Problems Problem Noted Date Resolved Date Cholestasis during 03/03/202203/2022 Elevated LFTs 02/27/2022 03/26/2022 Overview: Component Latest [...] 08/18/2021 03/26/2022 Need for influenza vaccination 08/18/2021 0 05/27/2023 History of 08/18/2021 03/26/2022 Subchorionic hematoma, antepartum 08/18/2021 02/27/2022 Placenta disorder 03/01/2019 06/18/2021 Overview: Fundal placenta with accessory lobe seen on anatomy sono Supervision of normal first , antepartu m 11/29/2018 06/18/2021 Overview: TDAP administered 05/10/19. Cierra Nguyen LPN Patient received flu vaccine. 05/25/2019 Marcelle Adamson RN Subchorionic hemorrhage of placenta, antepartum 11/29/2018 04/03/2019 Unknown varicella vaccination status 11/29/2018 06/18/2021 documented as of this encounter (statuses as of 06/25/2023) Immunizations Name Administration Dates Next Due SEASONAL INFLUENZA, PF, 6 M & Above, IM , (FLULAVAL or FLUZONE) 05/27/2023,08/18/2021,05/25/2019 TDAP (age 10 and older)(Boostrix) 01/01/2022, documented as of this encounter Social History Tobacco Use Types Packs/Day Years Used Date Smoking Tobacco: Never Smokeless Tobacco: Never Alcohol Use Standard Drinks/Week Comments No 0 (1 standard drink = 0.6 oz pur e alcohol) Alcohol Habits Answer Date Recorded How often do you have a drink containing alcohol ? Never 11/29/2018 How many drinks containing a lcohol do you have on a typical day when you are drinking? Not asked How often do you have six or more drinks on one occasion? Not asked Food Insecurity Answer Date Recorded Within the past 12 months, y ou worried that your food would run out before you got money to buy more. Never true 05/27/2023 Within the past 12 months, t he food you bought just didn't last and you didn't have money to get more. Never true 05/27/2023 Estimated Date of Delivery Comme nts Yes 01/02/2024 Based on last me nstrual period of 03/28/2023 Sex Assigned at Date Recorded Female 01/01/2022 10:29 AM EDT Job Start Date Occupation Industry Not on file Not on file Not on file documented as of this encounter Last Filed Vital Signs Vital Sign Reading Time Taken Comments Blood Pressure 120/70 06/25/2023 4:25 PM EDT Pulse - - Temperature - - Respiratory Rate - - Oxygen Saturation - - Inhaled Oxygen Concentration - - Weight 65.8 kg (145 lb) 06/25/2023 4:25 PM EDT Height - - Body Mass Index 25.69 05/27/2023 1:05 PM EDT documented in this encounter Progress Notes * Maggie Irene PA-C - 06/25/2023 4:30 PM EDT 12w5d Reviewed genetic screening, patient declines. Feeling much better, nausea improved. Denies VB/LOF. RTC in 4 weeks Maggie Irene PA-C documented in this encounter Plan of Treatment Upcoming Encounters Date Type Specialty Care Team Description 07/23/2023 Office Visit Gynecology Obstetrics Backer, GarimaGLORIA Gustafson [address] [place] [address] Health Maintenance Due Date Last Done Comments Hepatitis B (1 of 3 - 3-dose series) 1993 Depression Screening 2005 COVID-19 Vaccine (2022- season) 2023 11/18/2020 Pap Smear 04/17/2025 04/17/2022, [...] during documented in this encounter Care Teams Programming Equipment Operator Relationship Specialty Start Date End Date Laith Camara MD [address] [place] [address] PCP - General Family Medicine 10/10/19 documented as of this encounter
[2023-12-22] MEDS ORDERED: HYDROmorphone INJ 0.5 MG/0.5 ML SYR IV PRN (11:38)
[2023-12-22] MEDS ORDERED: PROMETHAZINE HCL 6.25 MG in SODIUM CHLORIDE 0.9% 50 ML IV PRN (11:38)
[2023-12-22] MEDS ORDERED: NALOXONE HCL 0.4 MG/1 ML VIAL/CARP IV PRN (11:38)
[2023-12-22] MEDS ORDERED: LACTATED RINGER'S 500 ML IV PRN (11:38)
[2023-12-22] MEDS ORDERED: NALOXONE HCL 0.08 MG in SYRINGE 1.8 ML IV PRN (11:38)
[2023-12-22] MEDS ORDERED: MEPERIDINE HCL 25 MG/ML CARP/VIAL IV PRN (11:38)
[2023-12-22] MEDS ORDERED: diphenhydrAMINE 50 MG/ML VIAL IV PRN (11:38)
[2023-12-22] MEDS ORDERED: ONDANSETRON INJ 2 MG/ML 2 ML VIAL IV PRN ×2 (11:38→12:06)
[2023-12-22] MEDS ORDERED: MoRPHine SULFATE PF 1 MG/ML 10 ML AMP/VIAL INT SPINAL ONE (11:38)
[2023-12-22] MEDS ORDERED: DROPERIDOL 5 MG/2 ML VIAL IV PRN (11:38)
[2023-12-22] MEDS ORDERED: NALOXONE HCL 1 MG in SODIUM CHLORIDE 0.9% 1,000 ML IV PRN (11:38)
[2023-12-22] MEDS ORDERED: NALBUPHINE HCL 5 MG in SYRINGE 0 ML IV PRN (11:38)
[2023-12-22] MEDS ORDERED: ePHEDrine sulfate 50 MG/ML AMP IV PRN (11:38)
[2023-12-22] MEDS ORDERED: DC INTRASPINAL MORPHINE SCH (11:45)
[2023-12-22] MEDS ORDERED: SODIUM CHLORIDE 0.9% 1,000 ML IV SCH (11:45)
[2023-12-22] MEDS ORDERED: NO NARCOTICS OR SEDATIVES SCH (11:45)
[2023-12-22] MEDS ORDERED: BENZOCAINE 20% SPRY 85 APPLN/85 GM CAN EXT PRN (12:06)
[2023-12-22] MEDS ORDERED: SENNA 8.6 MG TAB PO PRN (12:06)
[2023-12-22] MEDS ORDERED: HYDROCORTISONE ACETATE 25 MG SUPP PR PRN (12:06)
--- NOTE | 2023-12-22 12:13 | Anesthesiology Progress Note ---
Date of Service December 22, 2023 Anesthesia Post Procedure Vital Signs Vital Signs: Temp Pulse Resp BP Pulse Ox 12/22/23 12:10 71 104/57 L 12/22/23 12:09 68 99 12/22/23 09:30 20 12/22/23 09:30 20 12/22/23 09:00 18 12/22/23 09:00 18 12/22/23 08:30 18 12/22/23 08:30 18 12/22/23 08:02 36.9 C 20 12/22/23 07:33 94 H 123/73 Transfer of Care Handoff Completed per policy Notes Mental Status: alert / awake / arousable Patient Amnestic to Procedure: Yes Nausea / Vomiting: adequately controlled Pain: adequately controlled Airway Patency, RR, SpO2: stable & adequate BP & HR: stable & adequate Hydration State: stable & adequate Neuraxial Anesthesia: was administered and sensory block is resolving Anesthetic Complications: no major complications apparent and Pt Satisfied with anesthetic care
[2023-12-22] MEDS ORDERED: SEPRAFILM ADHESION BARR (4) 3X2.5IN TOP ONE (12:19)
--- NOTE | 2023-12-22 12:35 | Operative Report ---
Post Operative Report Pre & Post Diagnosis Operation Date: 12/22/23 09:00 Pre-Op Diagnosis: Prior Section X 2 ICP ( Intrahepatic Cholestasis of ) Post-Op Diagnosis: Same at pre-op I identified the patient and participated in the time-out.: Yes Procedure Operation Date: 12/22/23 09:00 Actual Procedures p Repeat Section, extensive lysis of adhesions, delivery of live female at 1112 - Wade Elliott MD Surgeon Wade Elliott MD Treatment Supervisor Dr Brito Estimated Blood Loss 744 (QBL) Findings Consistent with Post-Op Diagnosis Baby was a viable female infant delivered at 11:12 AM, cephalic presentation, Apgars 8/9, weight 3235 g. Maternal findings: Scarring of rectus fascia due to a prior C-sections, dense adhesion of the retroperitoneum, anterior abdominal wall to the anterior wall of uterus, normal fallopian tubes and ovaries. Specimens Placenta Drains Eid catheter Anesthesia Type Spinal Complications none Disposition Accompanied Patient To Recovery: Yes Indications Patient is a 28-year-old -0-0-2 at 38 weeks and 4 days of gestation with history of prior 2 C-sections x 2, history of ICP in prior with recurrent symptoms, elevated liver enzymes, suggesting ICP at term Description of Procedure Patient was taken to operating room where a spinal anesthesia was given without difficulty. She was placed in dorsal supine position with a leftward tilt. She was prepared and draped in usual sterile fashion. A financial skin incision was made and carried through to the underlying layer of fascia with the Bovie. Fascia was incised in the midline and incision was extended laterally with the help of Arriaga scissors. Then the upper aspect of the fascial incision was grasped with 2 Juanjo clamps elevated the underlying rectus muscles were dissected off sharply with Arriaga scissors. Same thing was done on the lower incision. Then the muscles were attached in the midline , elevated with pickups and entered sharply with scalpel, from the opening the peritoneum was held with 2 pickups and elevated, came across with thick adhesion/scar tissue. I placed my fingers under the whole and very careful that no bowel was involved. As we extended the opening we then came across with the serosal surface of the uterus on the lower sides, the middle section was adhesion of the peritoneum/anterior abdomen wall to the anterior surface of uterus. There is serosal opening was carefully made bigger and then rectus muscles were from the midline low enough that we could make sure that the bladder is not involved. The bladder blade was inserted. Vesicouterine peritoneum was identified, grasped with pickups and entered sharply with Metzenbaum scissors, bladder flap was created digitally and bladder blade was reinserted. Uterus was incised in transverse fashion, incision was extended laterally with bandage scissors, membranes were ruptured and clear fluid was obtained. Baby's head was delivered without difficulty, followed by shoulders with minimal traction. Mouth and nose were suctioned there was dried on the field he was vigorously crying and moving. The cord was clamped times and cut at 1 minute delay and then the infant was handed off to the pediatric team. Dr Caldwell. Then the placenta was delivered manually as intact and complete. Uterus was externalized and cleared of all clots and debris's. Uterine incision was held with 3 ring forceps from corners and in the midline. The serosal/myometrial defect on the medial superior portion of the uterus was repaired with 0 Vicryl in a running fashion. The made sure that enough thickness and integrity were obtained on the anterior uterine wall. Then the transverse uterine incision was repaired with 0 Vicryl in a running locked fashion, second umbricating layer was placed with the same suture in running locked fashion. Excellent hemostasis achieved. Cul-de-sac and the pelvis was irrigated with warm normal saline and suctioned. Incision was checked of anesthetic again. Uterus was returned to the abdomen, and the repaired areas were checked to be elicited Anterior wall of the uterus where the repair sutures were covered with Seprafilm to prevent adhesions in the future. Then the parietal peritoneum was reapproximated with 3-0 Vicryl in a running fashion and the muscles were reapproximated in the same suture in a running fashion. All of the fascia and rectus muscles were hemostatic. Rectus fascia was reapproximated with 0 Vicryl starting from both corners meeting in the midline. Subcuticular fat tissue was brought together with 2-0 Vicryl in a running fashion, skin was closed with 4-0 Monocryl in a subcuticular cuticular fashion. The mom and baby tolerated procedure well. Sponge needle instrument count was correct x3. No complications happened, I was present during whole procedure. My orthopedic assistant was needed for retraction, hemostasis and aid during delivery of infant. I attest to the content of the Intraoperative Record and any orders documented therein. Any exceptions are noted below.
[2023-12-22] MEDS: OXYTOCIN 20 UNITS in D5W AND LACTATED RINGERS 1,000 ML IV SCH (13:49)
[2023-12-22] MEDS: CITRIC ACID/SODIUM CITRATE 15 ML UDC PO SCH (15:50)
[2023-12-22] MEDS: SIMETHICONE 80 MG CHEW PO SCH ×2 (15:58→20:33)
[2023-12-22] MEDS: DIPHTHER/TETAN/PERTUS Vaccine (Tdap, Adol/Adult) 0.5mL IM ONE (16:19)
[2023-12-22] MEDS: MEASLES, MUMPS & RUBELLA VIRUS VACCINE (MMR) 0.5ML VIAL SQ ONE (16:19)
[2023-12-22] MEDS: KETOROLAC 30 MG/ML VIAL IV PRN (16:22)
[2023-12-22] MEDS: cephALEXin 500 MG CAP PO SCH (18:40)
[2023-12-22] MEDS: SIMETHICONE 80 MG CHEW PO ONE (18:44)
[2023-12-22] MEDS ORDERED: OXYTOCIN 20 UNITS/LR 1,002 ML IV SCH (20:15)
[2023-12-22] MEDS: DOCUSATE SODIUM 100 MG CAP PO SCH (20:33)
[2023-12-22] MEDS: LACTATED RINGER'S 1,000 ML IV SCH (21:55)
[2023-12-23] MEDS ORDERED: PROMETHAZINE HCL 25 MG in SODIUM CHLORIDE 0.9% 50 ML IV PRN (05:38)
[2023-12-23] MEDS ORDERED: diphenhydrAMINE 50 MG/ML VIAL IV PRN (05:38)
[2023-12-23] MEDS ORDERED: diphenhydrAMINE Capsule 25 MG CAP PO PRN (05:38)
[2023-12-23] MEDS ORDERED: MEPERIDINE HCL 50 MG/ML CARP IV PRN (05:38)
[2023-12-23 06:51] LABS: Basophils # (auto) 0.04 K/uL (0.00-0.20); Basophils % (auto) 0.3 %; Hematocrit (blood only) 28.9 % (37.0-47.0); Hemoglobin 9.8 g/dl (12.0-16.0); Immature Granulocytes # (auto) 0.06 K/uL (0.01-0.20); Immature Granulocytes % (auto) 0.5 %; Lymphocytes # (auto) 2.17 K/uL (1.20-3.40); Lymphocytes % (auto) 17.5 %; Mean Corpuscular Hemoglobin 31.2 pg (25.0-34.0); Mean Corpuscular Hgb Conc 33.9 g/dL (32.0-36.0); Mean Platelet Volume 10.6 fL (9.4-12.4); Monocytes # (auto) 1.06 K/uL (0.11-0.59); Monocytes % (auto) 8.5 %; Neutrophils # (auto) 9.07 K/uL (1.40-6.50); Neutrophils % (auto) 73.2 %; Platelet Count 193 K/uL (130-400); RDW Coefficient of Variation 13.2 % (11.5-14.5); RDW Standard Deviation 44.2 fL (36.4-46.3); Red Blood Count 3.14 M/uL (4.20-5.40)
[2023-12-23] MEDS: PRENATAL VITAMIN 1 TAB PO SCH (08:33)
[2023-12-23] MEDS: FERROUS SULFATE 325 MG TAB PO SCH (08:33)
[2023-12-23] MEDS: oxyCODONE/ACETAMINOPHEN 5mg/325mg TAB PO PRN (08:33)
--- NOTE | 2023-12-23 09:07 | Obstetrical Progress Note ---
Date of Service December 23, 2023 Subjective Ambulation: ambulating normally Voiding: no voiding problems Passing Gas:: Yes Diet Tolerance:: regular diet Feeding Type:: breast feeding Current Pain Level(1-10): 0 doing well Physical Exam Constitutional WD/WN, vitals as above Gastrointestinal (Abdomen) Inspection/Auscultation: abdomen normal to inspection incision c/d/i abdomen soft Musculoskeletal Extremities: extremities normal to inspection Skin no rashes, warm and dry Neurologic patellar DTR's 2+ bilat, sensation intact Psychiatric A+Ox3, euthymic affect Results & Data Vital Signs (Past 12 Hours) Vital Signs Temp Pulse Resp BP Pulse Ox O2 Del Method 12/23/23 05:00 18 98 12/23/23 04:06 18 97 12/23/23 03:00 18 99 12/23/23 03:00 36.8 C 68 18 100/61 99 Room Air 12/23/23 02:00 16 100 12/23/23 01:00 18 98 12/23/23 00:05 16 97 12/22/23 23:15 16 99 12/22/23 23:15 36.5 C 66 16 100/63 99 Room Air 12/22/23 22:04 16 98 Laboratory Results 12/22/23 12/22/23 12/22/23 07:28 07:30 08:42 WBC 11.60 H RBC 4.34 Hgb 13.4 Hct 39.2 MCV 90.3 MCH 30.9 MCHC 34.2 RDW Std Deviation 43.6 RDW Coeff of Arik 13.2 Plt Count 230 MPV 11.0 Immature Gran % (Auto) Neut % (Auto) Lymph % (Auto) [place] % (Auto) Eos % (Auto) Baso % (Auto) Neut # (Auto) Lymph # (Auto) [place] # (Auto) Eos # (Auto) Baso # (Auto) Immature Gran # (Auto) Sodium 137 Potassium 3.8 Chloride 107 Carbon Dioxide 23 Anion Gap 7 BUN 5 L Creatinine 0.45 L Est Cr Clr Drug Dosing 187.1 Est GFR ( Amer) > 150.0 Est GFR (Non-Af Amer) 134.5 BUN/Creatinine Ratio 11.1 Glucose 84 Calcium 8.7 Total Bilirubin 0.5 AST 102 H ALT 213 H Alkaline Phosphatase 191 H Total Protein 6.0 Albumin 3.3 L Globulin 2.7 Albumin/Globulin Ratio 1.2 Blood Type O Positive Antibody Screen NEGATIVE 12/23/23 05:27 WBC 12.40 H RBC 3.14 L Hgb 9.8 L D Hct 28.9 L MCV 92.0 MCH 31.2 MCHC 33.9 RDW Std Deviation 44.2 RDW Coeff of Arik 13.2 Plt Count 193 MPV 10.6 Immature Gran % (Auto) 0.5 Neut % (Auto) 73.2 Lymph % (Auto) 17.5 [place] % (Auto) 8.5 Eos % (Auto) 0.0 Baso % (Auto) 0.3 Neut # (Auto) 9.07 H Lymph # (Auto) 2.17 [place] # (Auto) 1.06 H Eos # (Auto) 0.00 Baso # (Auto) 0.04 Immature Gran # (Auto) 0.06 Sodium Potassium Chloride Carbon Dioxide Anion Gap BUN Creatinine Est Cr Clr Drug Dosing Est GFR ( Amer) Est GFR (Non-Af Amer) BUN/Creatinine Ratio Glucose Calcium Total Bilirubin AST ALT Alkaline Phosphatase Total Protein Albumin Globulin Albumin/Globulin Ratio Blood Type Antibody Screen
[2023-12-23] MEDS: IBUPROFEN 600 MG TAB PO PRN (12:33)
[2023-12-23] MEDS: bisacodyL 10 MG SUPP PR PRN (15:52)
[2023-12-23] MEDS: bisacodyL 10 MG SUPP PR ONE (15:52)
[2023-12-23] MEDS: bisacodyL 5 MG TABEC PO SCH (20:16)
[2023-12-24 08:11] LABS: Hemoglobin 9.8 g/dl (12.0-16.0)
--- NOTE | 2023-12-24 09:20 | Obstetrical Progress Note ---
Date of Service December 24, 2023 Assessment & Plan Admission and Anticipated Discharge Date Admission Date: December 22, 2023 Subjective Patient is seen and examined. She feels well, no complaints other than unable to pass gas. Pain is under control with oral meds. Ambulating without dizziness Voiding without difficulty Tolerating regular diet with out N&V Flatus none BM none Bleeding is minimal No fever/ chills/ CP/ SOB/ N&V/ Leg pain Breast feeding without problems Vital Signs Temp Pulse Pulse Resp BP Pulse Ox O2 Del Method 12/23/23 23:50 36.7 C 82 16 103/68 97 Room Air 12/23/23 19:16 36.8 C 82 18 101/65 99 Room Air 12/23/23 15:45 36.8 C 65 18 105/68 Room Air 12/23/23 11:58 36.4 C L 74 18 107/70 99 Room Air Lab Results 12/22/23 12/22/23 12/22/23 Range/Units 07:28 07:30 08:42 WBC 11.60 H (4.8-10.8) K/ul RBC 4.34 (4.20-5.40) M/uL Hgb 13.4 (12.0-16.0) g/dl Hct 39.2 (37.0-47.0) % MCV 90.3 (80.0-100.0) fL MCH 30.9 (25.0-34.0) pg MCHC 34.2 (32.0-36.0) g/dL RDW Std Deviation 43.6 (36.4-46.3) fL RDW Coeff of Arik 13.2 (11.5-14.5) % Plt Count 230 (130-400) K/uL MPV 11.0 (9.4-12.4) fL Immature Gran % (Auto) % Neut % (Auto) % Lymph % (Auto) % [place] % (Auto) % Eos % (Auto) % Baso % (Auto) % Neut # (Auto) (1.40-6.50) K/uL Lymph # (Auto) (1.20-3.40) K/uL [place] # (Auto) (0.11-0.59) K/uL Eos # (Auto) (0.00-0.50) K/uL Baso # (Auto) (0.00-0.20) K/uL Immature Gran # (Auto) (0.01-0.20) K/uL Sodium 137 (136-145) mmol/L Potassium 3.8 (3.5-5.1) mmol/L Chloride 107 (98-107) mmol/L Carbon Dioxide 23 (21-32) mmol/L Anion Gap 7 (3-11) BUN 5 L (6-23) mg/dl Creatinine 0.45 L (0.6-1.2) mg/dl Est Cr Clr Drug Dosing 187.1 ml/min Est GFR ( Amer) > 150.0 ml/min Est GFR (Non-Af Amer) 134.5 ml/min BUN/Creatinine Ratio 11.1 (10-20) Glucose 84 (70-99(Fasting)) mg/dl Calcium 8.7 (8.6-10.3) mg/dl Total Bilirubin 0.5 (0.2-1.0) mg/dl AST 102 H (13-39) U/L ALT 213 H (7-52) U/L Alkaline Phosphatase 191 H (34-104) U/L Total Protein 6.0 (6.0-8.3) gm/dl Albumin 3.3 L (3.4-5.0) gm/dl Globulin 2.7 (2.5-4.0) gm/dl Albumin/Globulin Ratio 1.2 (0.9-2) Blood Type O Positive Antibody Screen NEGATIVE 12/23/23 12/24/23 Range/Units 05:27 07:17 WBC 12.40 H (4.8-10.8) K/ul RBC 3.14 L (4.20-5.40) M/uL Hgb 9.8 L D 9.8 L (12.0-16.0) g/dl Hct 28.9 L 29.0 L (37.0-47.0) % MCV 92.0 (80.0-100.0) fL MCH 31.2 (25.0-34.0) pg MCHC 33.9 (32.0-36.0) g/dL RDW Std Deviation 44.2 (36.4-46.3) fL RDW Coeff of Arik 13.2 (11.5-14.5) % Plt Count 193 (130-400) K/uL MPV 10.6 (9.4-12.4) fL Immature Gran % (Auto) 0.5 % Neut % (Auto) 73.2 % Lymph % (Auto) 17.5 % [place] % (Auto) 8.5 % Eos % (Auto) 0.0 % Baso % (Auto) 0.3 % Neut # (Auto) 9.07 H (1.40-6.50) K/uL Lymph # (Auto) 2.17 (1.20-3.40) K/uL [place] # (Auto) 1.06 H (0.11-0.59) K/uL Eos # (Auto) 0.00 (0.00-0.50) K/uL Baso # (Auto) 0.04 (0.00-0.20) K/uL Immature Gran # (Auto) 0.06 (0.01-0.20) K/uL Sodium (136-145) mmol/L Potassium (3.5-5.1) mmol/L Chloride (98-107) mmol/L Carbon Dioxide (21-32) mmol/L Anion Gap (3-11) BUN (6-23) mg/dl Creatinine (0.6-1.2) mg/dl Est Cr Clr Drug Dosing ml/min Est GFR ( Amer) ml/min Est GFR (Non-Af Amer) ml/min BUN/Creatinine Ratio (10-20) Glucose (70-99(Fasting)) mg/dl Calcium (8.6-10.3) mg/dl Total Bilirubin (0.2-1.0) mg/dl AST (13-39) U/L ALT (7-52) U/L Alkaline Phosphatase (34-104) U/L Total Protein (6.0-8.3) gm/dl Albumin (3.4-5.0) gm/dl Globulin (2.5-4.0) gm/dl Albumin/Globulin Ratio (0.9-2) Blood Type Antibody Screen PE: General: Alert, orientedx3, NAD CVS: S1S2 RRR Lungs; CTAB Abd: soft, NT, ND, BS+, fundus firm, below Umbilicus Incision/ JUAN ANTONIO dressing: Clean, dry, intact Perineum intact, Lochia rubra minimal Ext; NT, no edema AP: 28 yo s/p C Section, pod# 2 VSS Afebrile doing well Continue routine postop care Encourage ambulation, PO intake, increase fiber All questions were answered D/C home tomorrow Results & Data Vital Signs (Past 12 Hours) Vital Signs Temp Pulse Resp BP Pulse Ox O2 Del Method 12/23/23 23:50 36.7 C 82 16 103/68 97 Room Air
[2023-12-24] MEDS: cephALEXin 500 MG CAP PO SCH (10:34)
[2023-12-24] MEDS: MAGNESIUM HYDROXIDE SUSP 30 ML UDC PO PRN (10:42)
[2023-12-24 11:00] LABS: Albumin Globulin Ratio 1.2 (0.9-2); Albumin Level 3.3 gm/dl (3.4-5.0); BUN Creatinine Ratio 12.5 (10-20); Bilirubin,Total 0.4 mg/dl (0.2-1.0); Calcium 8.9 mg/dl (8.6-10.3); Creatinine Clr Calc Pharmacy 150.3 ml/min; Est GFR (Non-African American) 125.1 ml/min; Globulin 2.8 gm/dl (2.5-4.0); Potassium 3.7 mmol/L (3.5-5.1); Total Protein 6.1 gm/dl (6.0-8.3)
[2023-12-25 06:45] LABS: Basophils # (auto) 0.03 K/uL (0.00-0.20); Basophils % (auto) 0.3 %; Eosinophils # (auto) 0.01 K/uL (0.00-0.50); Eosinophils % (auto) 0.1 %; Hematocrit (blood only) 27.8 % (37.0-47.0); Hemoglobin 9.4 g/dl (12.0-16.0); Immature Granulocytes # (auto) 0.07 K/uL (0.01-0.20); Immature Granulocytes % (auto) 0.7 %; Lymphocytes # (auto) 2.26 K/uL (1.20-3.40); Lymphocytes % (auto) 23.5 %; Mean Corpuscular Hemoglobin 31.1 pg (25.0-34.0); Mean Corpuscular Hgb Conc 33.8 g/dL (32.0-36.0); Mean Corpuscular Volume 92.1 fL (80.0-100.0); Mean Platelet Volume 10.2 fL (9.4-12.4); Monocytes # (auto) 0.73 K/uL (0.11-0.59); Monocytes % (auto) 7.6 %; Neutrophils # (auto) 6.52 K/uL (1.40-6.50); Neutrophils % (auto) 67.8 %; Platelet Count 249 K/uL (130-400); RDW Coefficient of Variation 13.2 % (11.5-14.5); RDW Standard Deviation 44.6 fL (36.4-46.3); Red Blood Count 3.02 M/uL (4.20-5.40); White Blood Count 9.62 K/ul (4.8-10.8)
[2023-12-25 07:17] LABS: Alanine Aminotransferase 190 U/L (7-52); Albumin Globulin Ratio 1.2 (0.9-2); Albumin Level 2.9 gm/dl (3.4-5.0); Alkaline Phosphatase 132 U/L (34-104); Anion Gap 5 (3-11); Aspartate Aminotransferase 84 U/L (13-39); BUN Creatinine Ratio 13.6 (10-20); Bilirubin,Total 0.4 mg/dl (0.2-1.0); Blood Urea Nitrogen 6 mg/dl (6-23); Calcium 8.3 mg/dl (8.6-10.3); Carbon Dioxide 25 mmol/L (21-32); Chloride 110 mmol/L (98-107); Creatinine Clr Calc Pharmacy 191.3 ml/min; Est GFR (African American) > 150.0 ml/min; Est GFR (Non-African American) 135.5 ml/min; Globulin 2.5 gm/dl (2.5-4.0); Glucose 76 mg/dl (70-99(Fasting)); Potassium 3.8 mmol/L (3.5-5.1); Sodium 140 mmol/L (136-145); Total Protein 5.4 gm/dl (6.0-8.3)
--- NOTE | 2023-12-25 09:09 | Obstetrical Progress Note ---
Date of Service December 25, 2023 Assessment & Plan (1) delivery delivered: POD #3 Pt doing well d/c home with instructions Results & Data Vital Signs (Past 12 Hours) Vital Signs Temp Pulse Resp BP Pulse Ox O2 Del Method 12/25/23 07:34 36.9 C 84 16 99/64 L 97 Room Air 12/24/23 23:03 36.7 C 88 18 110/66 98 Room Air
== END 2023-12-25 12:30 | disposition home health service (06) | DRG 786 ==
LOC: 4S1 07:05 → EDSTATUS 09:00 → 4E2 15:49